=== PATIENT | male | born 1950 | race Caucasian/White ===

== ENCOUNTER 2018-06-11 08:25 | Inpatient (IN) ==
[2018-06-11] MEDS: Sod Chloride 0.9% Inj 1,000 ML IV.CONT SCH ×2 (08:28→23:26)
[2018-06-11 08:43] LABS: Baso % (Auto) 0.4 % (0.0-2.0); Eos # (Auto) 0.1 th/mm3 (0.0-0.4); Eos % (Auto) 0.7 % (0.0-4.0); Hematocrit 46.1 % (39.0-51.0); Hemoglobin 15.5 gm/dL (13.0-17.0); Lymph # (Auto) 1.9 th/mm3 (1.0-4.8); Lymph % (Auto) 16.8 % (9.0-44.0); Mean Corpuscular HGB Conc 33.6 % (32.0-36.0); Mean Corpuscular Hemoglobin 31.3 pg (27.0-34.0); Mean Corpuscular Volume 93.2 fL (80.0-100.0); Mean Platelet Volume 8.3 fL (7.0-11.0); Mono # (Auto) 0.9 th/mm3 (0.0-0.9); Neut # (Auto) 8.3 th/mm3 (1.8-7.7); Neut % (Auto) 74.1 % (16.0-70.0); Platelet Count 220 th/mm3 (150-450); Red Blood Count 4.95 mil/mm3 (4.50-5.90); Red Cell Distribution Width 13.4 % (11.6-17.2); White Blood Count 11.2 th/mm3 (4.0-11.0)
[2018-06-11 08:52] LABS: Activated Partial Thrombo Time 33.5 sec (23.4-31.7); Prothrombin Time 9.8 sec (9.8-11.6)
--- NOTE | 2018-06-11 08:55 | CT ---
EXAM DATE: 06/11/2018 8:42 AM EST AGE/SEX: 68 years / Male INDICATIONS: Stroke alert, slurred speech and right sided weakness. CLINICAL DATA: This is the patient's initial encounter. Patient reports that signs and symptoms have been present for 1 day and indicates a pain score of Nonresponsive. MEDICAL/SURGICAL HISTORY: Non-responsive. Non-responsive. RADIATION DOSE: 56.35 CTDI (mGy) COMPARISON: [facility] [place] CEREBRAL [place]F W CONTRAST W 3D, 06/11/2018. . TECHNIQUE: CT of the head without contrast. Using automated exposure control and adjustment of the mA and/or kV according to patient size, radiation dose was kept as low as reasonably achievable to ob tain optimal diagnostic quality images. DICOM format image data is available electronically for revi ew and comparison. FINDINGS: Cerebrum: Evolving subacute infarct in the left sylvian region extending into the thalamus involving anterior limb and genu of internal capsule. There is no hemorrhage. Right hemisphere is unremarkable there are no extra-axial fluid collections appreciated Posterior fossa is normal. CONCLUSION: 1. Subacute infarct involving a large portion of the left anterior sylvian region extending into the head of the caudate and basal ganglia involving both limbs of internal capsule without hemorrhage. 2. Perfusion and CTA pending Report was called by Dr. Ring at 8 50am Electronically signed by: Ignacio Ring MD Board Certified Radiologist 06/11/2018 8:53 AM EST
[2018-06-11 09:02] LABS: Creatine Kinase 440 U/L (39-308)
--- NOTE | 2018-06-11 09:08 | CT ---
EXAM DATE: 06/11/2018 9:00 AM EST AGE/SEX: 68 years / Male INDICATIONS: Stroke alert, slurred speech and right sided weakness. CLINICAL DATA: This is the patient's initial encounter. Patient reports that signs and symptoms have been present for 1 day and indicates a pain score of Nonresponsive. MEDICAL/SURGICAL HISTORY: Non-responsive. Non-responsive. RADIATION DOSE: 217.64 CTDI (mGy) [place] [facility] [place] HEAD WO CON, [place]/11/2018. . TECHNIQUE: CT of the head after intravenous administration of 50 ml Visipaque 320 (iodixanol) nonio gertrude water-soluble contrast as a single exam dose. Using automated exposure control and adjustment of the mA and/or kV according to patient size, radiation dose was kept as low as reasonably achievable to obtain optimal diagnostic quality images. DICOM format image data is available electronically for review and comparison. FINDINGS: 1. CBF (<30%) Volume (ml): 44 2. Perfusion (Tmax>6.0s) Volume (ml): 208 3. Mismatch Volume (ml) (Tmax>6.0 - CBF): 164 CONCLUSION: Physiological brain perfusion parameters with RAPID analysis as above. The decision for consideration of therapy is multi factorial and multi disciplinary relying on subjec tive and objective clinical data. This data is not construed or intended to be the sole determinant of treatment eligibility. Electronically signed by: Ignacio Ring MD Board Certified Radiologist 06/11/2018 9:07 AM EST
--- NOTE | 2018-06-11 09:13 | ED ---
HPI General Chief Complaint: Neuro Symptoms/Deficit Stated Complaint: Neuro Complaint Time Seen by Provider: 06/11/18 08:28 History of Present Illness HPI Narrative: This is a 68-year-old male with a history of hyperlipidemia, GERD , gout, who presents today with neurologic symptoms. Son who brought him and states that he called him at 7 AM on the phone this morning and heard him with garbled speech. He knew immediately he was likely having a stroke. Son states he rushed to get to his father's house. He noted that he had weakness on his right upper and lower extremity as well as slurred and garbled speech. He rushed him here by car. Son states that he thinks he was probably last seen normal between 2 and 6 AM. 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 His son is been out of town for the last 3 days therefore had not seen him over the weekend. No further history could be elicited. Related Data Home Medications Medication Instructions Recorded Confirmed allopurinol 100 mg PO DAILY 06/11/18 06/11/18 amphetamine sulfate 10 mg PO BID 06/11/18 06/11/18 cholecalciferol (vitamin D3) 5,000 unit PO DAILY 06/11/18 06/11/18 [Vitamin D3] fenofibrate 160 mg PO DAILY 06/11/18 06/11/18 minocycline 100 mg PO DAILY 06/11/18 06/11/18 omeprazole 20 mg PO DAILY 06/11/18 06/11/18 oxycodone-acetaminophen 1 tab PO Q12H PRN 06/11/18 06/11/18 rosuvastatin 20 mg PO DAILY 06/11/18 06/11/18 sulfamethoxazole-trimethoprim 1 tab PO BID 06/11/18 06/11/18 vardenafil [Levitra] 10 mg PO DAILY PRN 06/11/18 06/11/18 Allergies Allergy/AdvReac Type Severity Reaction Status Date / Time penicillin G Allergy Severe SWELLING Verified 06/11/18 08:40 Review of Systems ROS Unobtainable ROS Unobtainable: unobtainable due to mental status (Patient unable to give review of systems secondary to his expressive a aphasia.) ROS: all other systems reviewed are negative Neurologic Reports as per HPI [facility] Medical History Medical History Arthritis, rheumatoid (Acute) COPD (chronic obstructive pulmonary disease) (Acute) Hyperlipemia (Acute) Surgical History Surgical History Previous back surgery (Acute) Social History Social History Substance History: Active Abuse Smoking Status: Current every day smoker Tobacco Type: Cigarettes How Often Do You Have a Drink Containing Alcohol: Monthly or less Recent Travel in [facility] [[email or web address]] within the Last 8 Weeks: No Recent Out of Country Travel within the Last 8 Weeks: No Exam Narrative Exam Narrative: GENERAL: Well-developed well-nourished male in no acute respiratory distress. SKIN: Focused skin assessment warm/dry. HEAD: Atraumatic. Normocephalic. EYES: No scleral icterus. No injection or drainage. ENT: No nasal bleeding or discharge. Mucous membranes pink and moist. NECK: Trachea midline. No JVD. CARDIOVASCULAR: Regular rate and rhythm. No murmur appreciated. RESPIRATORY: No accessory muscle use. Clear to auscultation. Breath sounds equal bilaterally. GASTROINTESTINAL: Abdomen soft, non-tender, nondistended. Hepatic and splenic margins not palpable. MUSCULOSKELETAL: No obvious deformities. No clubbing. No cyanosis. No edema. NEUROLOGICAL: Awake and expressively aphasic. Patient has 3 out of 5 weakness in his right lower extremity and 4 out of 5 in his right upper extremity. There is a pronator drift noted. Course Initial Documented Vital Signs Pulse Rate 87 06/11/18 08:40 Pulse Oximetry 98 06/11/18 08:40 Last Documented Vital Signs Pulse Rate 87 06/11/18 08:40 Pulse Oximetry 98 06/11/18 08:40 Critical Care Time Critical Care Time: Yes Total Critical Care Time: 60 Attestation: Aggregate critical care time was 60 minutes. Time to perform other separately billable procedures was not included in the critical care time. My time did not include minutes spent treating any other patients simultaneously or on activities that did not directly contribute to the patient's treatment. The services I provided to this patient were to treat and/or prevent clinically significant deterioration that could result in: I provided critical care services requiring my management, as noted below: Chart data review, documentation time, medication orders and management, vital sign assessments/reviewing monitor data, ordering and reviewing lab tests, ordering and interpreting/reviewing x-rays and diagnostic studies, care of the patient and discussion of the patient with the admitting physicians. Quality Measure Queries Stroke Last date observed well: 06/11/18 Last time observed well: 02:00 Medical Decision Making MDM Narrative Medical decision making narrative: 68-year-old male presents today with neurologic deficits. Patient has receptive and expressive aphasia. Patient has right upper and right lower extremity weakness. There is also right-sided facial droop. CT scan shows a large left-sided subacute stroke with edema. This appears greater than 24 hours. The patient is not a candidate for IV TPA. After reviewing the CT perfusion scan, the interventional radiologist feels as though he could benefit from neuro interventional treatment. This was discussed with both the patient and his son. The patient will be taken up to the neuro interventional area. The stroke scale was 12. Medical Screen Exam Complete: Yes Emergency Medical Condition: Yes Differential Diagnosis Differential Diagnosis: Embolic stroke versus hemorrhagic stroke versus metabolic derangement Lab Data Result diagrams: 06/11/18 08:30 Lab Results 06/11/18 06/11/18 06/11/18 Range/Units 08:30 08:30 08:30 WBC 11.2 H (4.0-11.0) th/mm3 RBC 4.95 (4.50-5.90) mil/mm3 Hgb 15.5 (13.0-17.0) gm/dL POC Hgb (Calc) 15.3 (13.0-17.0) g/dL Hct 46.1 (39.0-51.0) % POC Hct 45.0 (39-51.0) % MCV 93.2 (80.0-100.0) fL MCH 31.3 (27.0-34.0) pg MCHC 33.6 (32.0-36.0) % RDW 13.4 (11.6-17.2) % Plt Count 220 (150-450) th/mm3 MPV 8.3 (7.0-11.0) fL Neut % (Auto) 74.1 H (16.0-70.0) % Lymph % (Auto) 16.8 (9.0-44.0) % Crowley % (Auto) 8.0 (0.0-8.0) % Eos % (Auto) 0.7 (0.0-4.0) % Baso % (Auto) 0.4 (0.0-2.0) % Neut # (Auto) 8.3 H (1.8-7.7) th/mm3 Lymph # (Auto) 1.9 (1.0-4.8) th/mm3 Crowley # (Auto) 0.9 (0.0-0.9) th/mm3 Eos # (Auto) 0.1 (0.0-0.4) th/mm3 Baso # (Auto) 0.0 (0.0-0.2) th/mm3 WBC Differential . Differential Comment Auto diff final PT 9.8 (9.8-11.6) sec INR 1.0 Ratio APTT 33.5 H (23.4-31.7) sec Fibrinogen 439 H (227-377) mg/dL POC Sodium 143 (137-144) mmol/L POC Potassium 4.0 (3.6-5.0) mmol/L POC Chloride 110 (102-111) mmol/L POC BUN 15 (5-21) mg/dL POC Creatinine 1.1 (0.6-1.3) mg/dL POC Glucose 106 (68-110) mg/dL Total Creatine Kinase 440 H (39-308) U/L Troponin I Less than 0.02 L (0.02-0.05) ng/mL Imaging Data Radiologist's impression: Head CT 06/11/18 08:28 CONCLUSION: 1. Subacute infarct involving a large portion of the left anterior sylvian region extending into the head of the caudate and basal ganglia involving both limbs of internal capsule without hemorrhage. 2. Perfusion and CTA pending Report was called by Dr. Ring at 8 50am Discharge Plan Discharge Disposition Patient Disposition: ED Admit(ED Internal Use Only) Discharge Details Diagnosis: Acute embolic stroke, Dyslipidemia, Tobacco use disorder Physicians Team ED Provider: Vitor Lancaster Primary Care Provider: UNKNOWN, Other Providers: Charli Watson Rxs /Orders / Referrals /Forms Prescriptions: No Action minocycline 100 mg Capsule 100 mg PO DAILY RF: 0 allopurinol 100 mg Tablet 100 mg PO DAILY RF: 0 sulfamethoxazole-trimethoprim 800-160 mg Tablet 1 tab PO BID RF: 0 omeprazole 20 mg Tablet,Delayed Release (Dr/Ec) 20 mg PO DAILY RF: 0 oxycodone-acetaminophen 5-325 mg Tablet 1 tab PO Q12H PRN (Reason: Pain) RF: 0 vardenafil [Levitra] 10 mg Tablet 10 mg PO DAILY PRN (Reason: Erectile Dysfunction) RF: 0 cholecalciferol (vitamin D3) [Vitamin D3] 5,000 unit Tablet 5,000 unit PO DAILY RF: 0 amphetamine sulfate 10 mg Tablet 10 mg PO BID RF: 0 rosuvastatin 20 mg Tablet 20 mg PO DAILY RF: 0 fenofibrate 160 mg Tablet 160 mg PO DAILY RF: 0 Status ED Status: With Doctor
--- NOTE | 2018-06-11 09:13 | CT ---
EXAM DATE: 06/11/2018 9:04 AM EST AGE/SEX: 68 years / Male INDICATIONS: Stroke alert, slurred speech and right sided weakness. CLINICAL DATA: This is the patient's initial encounter. Patient reports that signs and symptoms have been present for 1 day and indicates a pain score of Nonresponsive. MEDICAL/SURGICAL HISTORY: Non-responsive. Non-responsive. RADIATION DOSE: 10.06 CTDI (mGy) ; Combined studies COMPARISON: No prior exams available for comparison. TECHNIQUE: Volumetric scanning was performed using a multi-row detector CT scanner during bolus infu florencia of 50 ml Visipaque 320 (iodixanol) nonionic water-soluble contrast as a cumulative dose for mul tiple exams. The data was post processed with a variety of visualization algorithms including full volume maximum intensity projection, multi-planar sliding thin slab reformation, curved planar reform ation, and surface rendering techniques. Using automated exposure control and adjustment of the mA a nd/or kV according to patient size, radiation dose was kept as low as reasonably achievable to obtain optimal diagnostic quality images. DICOM format image data is available electronically for review a nd comparison. FINDINGS: There is an embolic occlusion mid to distal M1 segment left middle cerebral artery. The left anterior cerebral artery is patent. Vessels on the right are patent. Basilar artery is patent. CONCLUSION: 1. Embolic occlusion on the left. CT suggests an older stroke then suggested by history. Report was called by Dr. Ring at 0905 AM. Electronically signed by: Ignacio Ring MD Board Certified Radiologist 06/11/2018 9:12 AM EST
[2018-06-11 09:17] LABS: CKMB Percent 2.5 % (0.0-4.0); Creatine Kinase MB 10.8 ng/mL (0.5-3.6)
--- NOTE | 2018-06-11 09:23 | CT ---
EXAM DATE: 06/11/2018 9:17 AM EST AGE/SEX: 68 years / Male INDICATIONS: Stroke alert, slurred speech and right sided weakness. CLINICAL DATA: This is the patient's initial encounter. Patient reports that signs and symptoms have been present for 1 day and indicates a pain score of Nonresponsive. MEDICAL/SURGICAL HISTORY: Non-responsive. Non-responsive. RADIATION DOSE: 10.06 CTDI (mGy) ; Combined studies COMPARISON: [facility], CTA STROKE ALERT HEAD W CONTRAST W 3D, 06/11/2018. . TECHNIQUE: Volumetric scanning was performed using a multirow detector CT scanner during bolus infus ion of 50 ml Visipaque 320 (iodixanol) nonionic water-soluble contrast as a cumulative dose for mult iple exams. The data was postprocessed with a variety of visualization algorithms including full-vo lume maximum intensity projection, multiplanar sliding thin-slab reformation, curved-planar reformati on, and surface-rendering techniques. Using automated exposure control and adjustment of the mA and/ or kV according to patient size, radiation dose was kept as low as reasonably achievable to obtain op timal diagnostic quality images. DICOM format image data is available electronically for review and comparison. Percent stenosis is calculated using the diameter of the stenotic region over the diameter of the nor mal distal internal carotid artery. FINDINGS: Aortic Arch: There is a three-vessel origin of the great vessels from the aorta. No evidence of ost ial narrowing Right Carotid: Ulceration present origin of the right internal carotid. Stenosis not felt to be hemo dynamically significant. 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 Vertebrals: The vertebral arteries have a symmetric diameter. No stenotic lesions are seen. CONCLUSION: 1. 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 Ring at 09 20 . Electronically signed by: Ignacio Ring MD Board Certified Radiologist 06/11/2018 9:22 AM EST
[2018-06-11 09:43] LABS: Amphetamine Screen,Urine Neg (Neg); Barbiturate Screen,Urine Neg (Neg); Cannabinoid Screen,Urine Neg (Neg); Cocaine Screen,Urine Neg (Neg)
[2018-06-11 09:47] LABS: Bacteria,Urine Rare /hpf; Bilirubin,Urine Negative (Negative); Clarity,Urine Clear (Clear); Color,Urine Amber (Yellw/Straw); Glucose,Urine (UA) Negative (Negative); Leukocyte Esterase,Urine Negative (Negative); Mucus,Urine Moderate /lpf (Occasional); Nitrite,Urine Negative (Negative); Squamous Epithelial Cell,Urine 2 /hpf (0-5)
[2018-06-11] MEDS ORDERED: fentaNYL Citrate Inj 250 MCG/5 ML Ampul ONE (09:47)
[2018-06-11 09:49] LABS: Opiate Screen,Urine Neg (Neg)
--- NOTE | 2018-06-11 10:18 | MB ---
cc: Charli Watson MD, PhD DATE: 06/11/2018 REASON FOR CONSULTATION: Stroke alert. HISTORY OF PRESENT ILLNESS: This is a 68-year-old patient who presented to the ER with right-sided weakness and aphasia. His son brought him to the emergency room. He states he called his father at 7 a.m. in the morning. His speech was garbled, and he was concerned about a stroke, so brought him to the ER. He also noted weakness in the right arm and right leg. His son states that he thinks he was probably last seen normal between 2 and 6 a.m. However, his son has been out of town for the past 3 days and has not seen his father over the weekend. The patient is not able to give history because of his aphasia. NEUROLOGICAL EXAMINATION: The patient is alert. He has a global aphasia. He cannot follow commands well except for simple commands. He has no spontaneous speech output. Cannot repeat simple phrases. Cranial nerves: The pupils are equal and reactive. The extraocular movements are intact. He does have a right facial weakness. On motor exam, he is weak in the right arm, roughly 3/5. Right leg is about 4/5 in strength. He has normal strength in the left arm and left leg. Reflexes are symmetric. He has got a Babinski on the right. IMAGING DATA: A CT scan of the brain shows a subacute infarction involving a large portion of the left anterior sylvian region extending into the head of the caudate and basal ganglia involving both limbs of the internal capsule with no evidence of any hemorrhage. CTA shows an embolic occlusion of the mid to distal M1 segment of the left MCA. Left anterior cerebral artery is patent. CT perfusion shows cerebral blood flow of 44. Perfusion volume was 208 mL, mismatch volume 164 mL. LABORATORY DATA: White count 11,200, hemoglobin 15.5, hematocrit 46%, platelet count 220,000. PT 9.8, INR 1.0, APTT 33.5. Sodium is 143, potassium is 4.0, chloride 110, BUN is 15, creatinine 1.1, glucose 106. CPK 440. 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 The patient is not a candidate for IV TPA as he is out of the window time frame. We will discuss further with radiology department regarding the possibility for intervention in this case. Some of the stroke does appear to be older whereas the perfusion studies suggest that there is also a significant ischemic penumbra which is potentially salvageable by endovascular therapy. Charli Watson MD, PhD ARMANI/brittny , 09:32 AM , 09:39 AM
[2018-06-11] MEDS ORDERED: Bisacodyl 10 MG Supp RECTAL PRN (10:22)
[2018-06-11] MEDS ORDERED: Potassium Chlor 20 mEq Premix 20 MEQ/100 ML PIGGYBACK IV.SIG PRN ×2 (10:22)
[2018-06-11] MEDS ORDERED: Magnesium Sulfate Inj 4 GM in Sodium Chlor 0.9% Inj 92 ML IV.SIG PRN (10:22)
[2018-06-11] MEDS ORDERED: Potassium Phosphate Inj 30 MMOL in Sodium Chlor 0.9% Inj 250 ML IV.SIG PRN (10:22)
[2018-06-11] MEDS ORDERED: Potassium Chlor 40 mEq Premix 40 MEQ/100 ML PIGGYBACK IV.SIG PRN ×2 (10:22)
[2018-06-11] MEDS ORDERED: hydrALAZINE HCl Inj 20 MG/ML Vial IV.PUSH PRN (10:22)
[2018-06-11] MEDS ORDERED: Magnesium Oxide 400 MG Tablet PO PRN (10:22)
[2018-06-11] MEDS ORDERED: Sodium Phosphate Inj 30 MMOL in Sodium Chlor 0.9% Inj 250 ML IV.SIG PRN (10:22)
[2018-06-11] MEDS ORDERED: Potassium Chloride Liq 20 MEQ/15 ML UDC PO PRN ×2 (10:22)
[2018-06-11] MEDS ORDERED: Potassium Phosphate 500 MG Soluble Tablet PO PRN ×2 (10:22)
[2018-06-11] MEDS ORDERED: Acetaminophen 325 MG Tablet PO PRN (10:22)
[2018-06-11] MEDS ORDERED: Labetalol HCl Inj 100 MG/20 ML Vial IV.PUSH PRN (10:22)
[2018-06-11] MEDS ORDERED: Dextrose 50% in Water 50 ML Vial IV.PUSH PRN (10:22)
[2018-06-11] MEDS ORDERED: Magnesium Sulfate Inj 2 GM in Sodium Chlor 0.9% Inj 96 ML IV.SIG PRN (10:22)
--- NOTE | 2018-06-11 10:27 | P.HPCC ---
History of Present Illness Service: Critical care medicine Primary Care Physician: UNKNOWN Chief Complaint: altered mental status History of Present Illness: This is a 68-year-old male with a history of hyperlipidemia, GERD who presented to the emergency department this morning with new onset of altered mentation. The patient is unable to produce pain history and is densely aphasic and so the history is obtained from the medical record and from emergency room physician. Per records, the patient's son was notified at 7 AM when his father called him on the phone but had garbled speech. Although the son thinks that his true last seen normal time was between 2 and 6 AM based on circumstantial evidence he found in the house, the patient's true last seen normal time was greater than 3 days ago when he was seen by his son intact. In the emergency department emergent noncontrasted head CT was negative for acute bleed. CTA head neck demonstrated occluded left internal carotid artery as well as occluded left M1 branch MCA. CT perfusion demonstrated a large discrepancy between infarct and restricted diffusion suggesting that there was a large area of brain that was at risk for further infarction, and based on these imaging studies decision was made to take him to emergent endovascular clot retrieval. However, despite attempts, interventional radiology was unable to get past chronic occluded left ICA, and the procedure was aborted. I saw the patient both in interventional radiology and again in the intensive care unit. He is densely aphasic. Review of systems is unobtainable. He is moving all extremities although not following commands. He does appear to be weaker on the right side than the left side. Inpatient Certification: I certify that the inpatient services were ordered in accordance with Medicare regulations governing the order. This includes certification that hospital inpatient services are reasonable and necessary and in the case of services not specified as inpatient-only under 42 CFR 419.22(n), that they are appropriately provided as inpatient services in accordance to with the 2-midnight benchmark under 43 CFR 412.3(e) Estimated Total Length of Stay (Days): 7 Plans for Post Hospital Care: Not yet determined Review of Systems unobtainable due to mental status PMFSH - History History Provided By: Family Member, Medical Record - Medical History Medical History: Medical History (Last Reviewed 06/11/18 @ 16:08 by Heath Arboleda MD) Arthritis, rheumatoid COPD (chronic obstructive pulmonary disease) Hyperlipemia - Surgical History Surgical History: Surgical History (Last Reviewed 06/11/18 @ 16:08 by Haeth Arboleda MD) Previous back surgery - Family History Family History: Family History (Last Updated 06/11/18 @ 16:08 by Heath Arboleda MD) Other Family history non-contributory - Social History I have reviewed the patient's Social History: Yes - Tobacco History Tobacco Use In Past 30 Days: Yes Smoking Status: Current every day smoker Tobacco Type: Cigarettes - Alcohol History How Often Do You Have a Drink Containing Alcohol: Monthly or less - Substance Use History Substance History: Active Abuse - Substance Use Type Marijuana Status: Active Route Used: Inhalation - Travel History Recent Travel in the [place] Within the Last 8 Weeks: No Recent Travel Out of the Country Within the Last 8 Weeks: No - Immunization History Tetanus Immunization: >5 Years Medications and Allergies Active Medications: Active Medications Sodium Chloride (Ns Inj) 1,000 mls @ 70 mls/hr IV.CONT .[id number] DORIS Last Admin: 06/11/18 08:28 Dose: 70 mls/hr Allergies Allergy/AdvReac Type Severity Reaction Status Date / Time penicillin G Allergy Severe SWELLING Verified 06/11/18 08:40 Home Medications Medication Instructions Recorded Confirmed Type allopurinol 100 mg PO DAILY 06/11/18 06/11/18 History amphetamine sulfate 10 mg PO BID 06/11/18 06/11/18 History cholecalciferol (vitamin D3) 5,000 unit PO DAILY 06/11/18 06/11/18 History [Vitamin D3] fenofibrate 160 mg PO DAILY 06/11/18 06/11/18 History minocycline 100 mg PO DAILY 06/11/18 06/11/18 History omeprazole 20 mg PO DAILY 06/11/18 06/11/18 History oxycodone-acetaminophen 1 tab PO Q12H PRN 06/11/18 06/11/18 History rosuvastatin 20 mg PO DAILY 06/11/18 06/11/18 History sulfamethoxazole-trimethoprim 1 tab PO BID 06/11/18 06/11/18 History vardenafil [Levitra] 10 mg PO DAILY PRN 06/11/18 06/11/18 History Results - Labs CBC & Chem 7: 06/11/18 08:30 Labs: Short CBC 06/11/18 Range/Units 08:30 WBC 11.2 H (4.0-11.0) th/mm3 Hgb 15.5 (13.0-17.0) gm/dL Hct 46.1 (39.0-51.0) % Plt Count 220 (150-450) th/mm3 Cardiac Enzymes 06/11/18 Range/Units 08:30 Total Creatine Kinase 440 H (39-308) U/L CK-MB (CK-2) 10.8 H (0.5-3.6) ng/mL Troponin I Less than 0.02 L (0.02-0.05) ng/mL Urine 06/11/18 Range/Units 09:18 Urine Color Lisa (Yellw/Straw) Urine Clarity Clear (Clear) Urine pH 5.0 (5.0-8.5) Ur Specific Citra Greater than 1.060 H (1.002-1.035) Urine Protein Negative (Neg-Trace) mg/dL Urine Glucose (UA) Negative (Negative) mg/dL - Imaging Impressions Head CT 06/11/18 08:28 CONCLUSION: 1. Subacute infarct involving a large portion of the left anterior sylvian region extending into the head of the caudate and basal ganglia involving both limbs of internal capsule without hemorrhage. 2. Perfusion and CTA pending Report was called by Dr. Ring at 8 50am Head CTA 06/11/18 08:28 CONCLUSION: 1. Embolic occlusion on the left. CT suggests an older stroke then suggested by history. Report was called by Dr. Ring at 0905 AM. Neck CTA 06/11/18 08:28 CONCLUSION: 1. 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 Ring at [address] CAD 06/11/18 08:29 CONCLUSION: Physiological brain perfusion parameters with RAPID analysis as above. The decision for consideration of therapy is multi factorial and multi disciplinary relying on subjective and objective clinical data. This data is not construed or intended to be the sole determinant of treatment eligibility. Exam Vital signs: Vital Signs 06/11/18 08:40 06/11/18 09:14 Pulse Rate 87 Pulse Oximetry 98 100 Intake & Output 06/10/18 06/11/18 06/11/18 18:59 06:59 18:59 Weight 74.6 kg Narrative: GENERAL: Middle-age male, lying in bed, in distress due to his neuro deficits HEENT: Normocephalic. Atraumatic. Pupils are 3 mm, equal, round, reactive, conjugate. Mucous membranes are moist NECK: Trachea is midline. There is no JVD. CHEST: Equal chest rise. Room air. CARDIOVASCULAR: Normal rate, regular rhythm. Sinus by telemetry. ABDOMEN: Soft, nontender, nondistended. No guarding. MUSCULOSKELETAL: Pulses 2+. No peripheral edema. NEUROLOGICAL: RASS 0. The Patient appears to be awake and alert. Patient has a dense receptive and expressive aphasia. He does not mimic commands. He does not follow any commands. He does move all 4 extremities spontaneously. It appears that he is weaker on the right than the left, although with his inability to follow commands, it is difficult to assess the severity of his weakness. I would estimate that his muscular skeletal strength is 4/5 in the right upper and lower extremities and 5/5 in the left. Unable to determine his sensation. Gait not assessed. Caprini VTE Risk Assessment Caprini VTE Risk Assessment: Moderate/High Risk (score >= 2) VTE Pharmacological Exception Reason: High risk for bleeding Caprini Risk Assessment Model: Point Value = 1 Point Value = 2 Point Value = 3 Point Value = 5 Age 41-60 Minor surgery BMI > 25 kg/m2 Swollen legs Varicose veins or History of unexplained or recurrent spontaneous Oral contraceptives or hormone replacement Sepsis (< 1 month) Serious lung disease, including pneumonia (< 1 month) Abnormal pulmonary function Acute myocardial infarction Congestive heart failure (< 1 month) History of inflammatory bowel disease Medical patient at bed rest Age 61-74 Arthroscopic surgery Major open surgery (> 45 min) Laparoscopic surgery (> 45 min) Malignancy Confined to bed (> 72 hours) Immobilizing plaster cast Central venous access Age >= 75 History of VTE Family history of VTE Factor V Leiden Prothrombin [id number] Lupus anticoagulant Anticardiolipin antibodies Elevated serum homocysteine Heparin-induced thrombocytopenia Other congenital or acquired thrombophilia Stroke (< 1 month) Elective arthroplasty Hip, pelvis, or leg fracture Acute spinal cord injury (< 1 month) Prophylaxis Regimen: Total Risk Factor Score Risk Level Prophylaxis Regimen 0-1 Low Early ambulation 2 Moderate Order ONE of the following: *Sequential Compression Device (SCD) *Heparin 5000 units SQ BID 3-4 Higher Order ONE of the following medications: *Heparin 5000 units SQ TID *Enoxaparin/Lovenox 40 mg SQ daily (WT < 150 kg, CrCl > 30 mL/min) *Enoxaparin/Lovenox 30 mg SQ daily (WT < 150 kg, CrCl > 10-29 mL/min) *Enoxaparin/Lovenox 30 mg SQ BID (WT < 150 kg, CrCl > 30 mL/min) AND/OR *Sequential Compression Device (SCD) 5 or more Highest Order ONE of the following medications: *Heparin 5000 units SQ TID (Preferred with Epidurals) *Enoxaparin/Lovenox 40 mg SQ daily (WT < 150 kg, CrCl > 30 mL/min) *Enoxaparin/Lovenox 30 mg SQ daily (WT < 150 kg, CrCl > 10-29 mL/min) *Enoxaparin/Lovenox 30 mg SQ BID (WT < 150 kg, CrCl > 30 mL/min) AND *Sequential Compression Device (SCD) Assessment and Plan - Assessment and Plan Plan: Assessment: This is a 68-year-old male with acute left M1 MCA CVA and left ICA occlusion. Admit to ICU. Given the suspected large volume infarct, would be very high risk for hemorrhagic conversion. Will allow permissive hypertension, but would target his blood pressure under 180 to mitigate risks of hemorrhagic conversion. He is critically ill in intensive care unit due to his life- threatening stroke. I have asked neurosurgery to consult in case he develops malignant cerebral edema as he would be a decompressive craniectomy candidate if the family wanted such aggressive measures. However, ultimately, if he goes on to develop significant cerebral edema or deficits, his overall prognosis would not be great, and I have cautioned the family that his long-term chance of independent functional status is likely very low. 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 Will continue to discuss aspirin and DVT prophylaxis with neurology on an ongoing basis to decide when the risk/benefit ratio has improved. Critically ill. This patient remains critically ill with one or more organ systems which are or may become a threat to life. I have spent in excess of 58 minutes discontinuously in the care and management of this patient. This time is exclusive of procedures, and includes, but is not limited to, evaluation of the patient, review of the medical record, discussions with family, consultants, nursing staff, or respiratory therapy, and documentation in the medical record.
--- NOTE | 2018-06-11 10:29 | P.RAD ---
Post Procedure Progress Note - Pre Procedure Diagnosis (1) Acute embolic stroke - Post Procedure Diagnosis (1) Acute embolic stroke - Procedure Information Procedure Date: 06/11/18 Supervising Radiologist: Juan C Ring MD Estimated blood loss (mL): 2 Anesthesia: Local, Conscious Sedation - Plan of Activity Patient to Unit: Critical Care Patient Condition: Poor Additional Comments: Angio completed. Complete densely calcified occlusion of the left internal carotid. Unable to pass a wire through this. Pt. is not a candidate for embolectomy. Full report to follow See PACS Report for procedural detail/treatment.
[2018-06-11] MEDS: Insulin NovoLIN Regular Correctional Sugar Inj SQ SCH ×3 (11:34→23:27)
[2018-06-11] MEDS ORDERED: Insulin NovoLIN Regular Correctional Sugar Inj SQ SCH (12:00)
[2018-06-11 12:04] LABS: Chol/HDL Ratio 3.71 Ratio; HDL Cholesterol 39.8 mg/dL (40.0-60.0)
--- NOTE | 2018-06-11 12:22 | MB ---
cc: Jay Collins MD DATE: 06/11/2018 TIME: 11 a.m. Report of an initial comprehensive inpatient intensive care unit neurosurgical consultation. The patient was interviewed and examined. The documentation, laboratory evaluation and imaging were reviewed. CHIEF COMPLAINT: Stroke. HISTORY OF PRESENT ILLNESS: This is a 68-year-old apparently right-handed white male who was found by his son this morning to be a dysphasic with right hemiparesis. He was brought to the emergency department here at [facility] and evaluated. Workup disclosed a left middle cerebral artery stroke or infarct with an occlusion of the cervical internal carotid artery at the bifurcation and an embolic occlusion of the M1 portion of the left middle cerebral artery. CTA and perfusion suggested an ischemic penumbra and an attempt was made to endovascularly revascularize unsuccessfully. In any case, a neurosurgical consultation has been requested. PAST MEDICAL HISTORY: Remarkable for a history of rheumatoid arthritis, COPD and hyperlipidemia. He obviously also suffers with gout as well as erectile dysfunction. PAST SURGICAL HISTORY: Remarkable for previous back surgery. MEDICATIONS: Include: 1. Allopurinol. 2. Amphetamine sulfate. 3. Cholecalciferol. 4. Fenofibrate. 5. Minocycline. 6. Omeprazole. 7. Oxycodone/acetaminophen. 8. Rosuvastatin. 9. Bactrim. 10. Levitra. ALLERGIES: APPARENTLY TO PENICILLIN. SOCIAL HISTORY: Unobtainable due to the patient's clinical condition, but apparently obtained from the son and the chart, the patient has a history of cigarette smoking. FAMILY HISTORY: Unobtainable due to the patient's clinical condition. REVIEW OF SYSTEMS: Unobtainable due to the patient's clinical condition. NEUROLOGIC EXAMINATION: Vital signs find his temperature to be 98. His pulse or heart rate is 69. His blood pressure is 141/64. His respiratory rate is 24. His SpO2 is 100% on room air. Mental status testing finds the patient to be awake and alert. You cannot determine if the patient is oriented due to his speech deficit which includes a global dysphasia with almost a complete expressive aphasia and a receptive dysphagia. Cranial nerve testing finds his pupils to be equally round and reactive to light. Extraocular movements are full. Visual winters appear to be full to confrontation. There is no nystagmus noted. Funduscopic examination cannot be performed due to small pupils. Otherwise, cranial nerve testing 2-12 is grossly intact. I cannot tell if the patient has a facial paresis. Motor examination reveals 4+/5+ weakness of the right upper and right lower extremity. Sensory examination is intact to noxious stimuli. In all 4 extremities, he withdraws appropriately. Deep tendon reflexes are 2+ on the left and 3 to 4+ on the right. There are no pathological reflexes noted. Cerebellar, gait, Romberg and tandem cannot be tested. His head is normocephalic. External auditory canals are clear. There is no merchant sign or raccoon eyes. No sign of mastoid tenderness. No sign of CSF otorrhea or rhinorrhea. There is no sign of head injury. Cervical spine evaluation reveals mild limited range of motion without pain to palpation or meningismus. Pulses are 4+ present and symmetrical throughout. IMPRESSION: My impression is the patient suffered what appears to be an acute left middle cerebral artery stroke. RECOMMENDATIONS AND PLAN: At this point, certainly a conservative neurosurgical approach is warranted. He will be monitored and treated closely in the surgical intensive care unit. Depending on the results of the workup as well as his clinical course, we will determine the appropriate further diagnostic and therapeutic approach. If the patient deteriorates neurologically, one might consider pursuing a decompressive hemicraniectomy. However, this was discussed with the patient's son at the bedside and currently both him and his family are undecided due to the patient's previously expressed wishes. In any case, neurosurgical followup. Thank you for allowing me to participate in the care of this patient. MD SONJA Cervantes/nini , 11:46 AM , 11:58 AM
[2018-06-11] MEDS ORDERED: Sodium Chloride 0.9% 2 ML Flush PRN IV.FLUSH (13:55)
[2018-06-11] MEDS: Aspirin 300 MG Supp RECTAL SCH (14:11)
[2018-06-11] MEDS ORDERED: Gadobutrol PF 7.5 MMOL/7.5 ML Vial (for RAD) IV.SIG ONE (14:41)
--- NOTE | 2018-06-11 14:58 | MR ---
EXAM DATE: 06/11/2018 2:43 PM EST AGE/SEX: 68 years / Male INDICATIONS: Aphasia. Right sided weakness. CLINICAL DATA: This is the patient's subsequent encounter. Patient reports that signs and symptoms h ave been present for 1 day and indicates a pain score of 3/10. MEDICAL/SURGICAL HISTORY: Hypertension. Hypercholesterolemia. Fusion, lumbar. COMPARISON: No prior exams available for comparison. TECHNIQUE: Multiplanar, multisequence examination of the brain was performed without and with 7.5 ml Gadavist (gadobutrol) contrast as a single exam dose. FINDINGS: Cerebrum: There is a large area of restricted diffusion in the left anterior sylvian region extendin g to the head of the caudate involving the anterior limb of the internal capsule. There is no associa manuel hemorrhage with this. The left internal carotid is occluded at the carotid bifurcation with some pleural cavernous sinus retrograde. The right hemisphere is unremarkable Ventricular size is appropriate. On postcontrast images there is minimal cortical vein enhancement. Extracranial: The visualized portions of the orbits and paranasal sinuses are unremarkable. CONCLUSION: 1. Large area of infarction as above from known embolic disease in the distal M1 segment of the left anterior cerebral artery. There is no significant hemorrhage as yet. 2. No other ischemic changes are evident. Electronically signed by: Ignacio Ring MD Board Certified Radiologist 06/11/2018 2:56 PM EST
--- NOTE | 2018-06-11 15:01 | ECG ---
Date Performed: 06/11/2018 Time Performed: 08:30:51 PTAGE: 68 years EKG: Sinus rhythm NORMAL ECG NO PREVIOUS TRACING DOCTOR: Curly Manjarrez Interpretating Date/Time 06/11/2018 14:59:47
[2018-06-11 17:31] LABS: Hemoglobin A1c 5.7 % (4.3-6.0)
--- NOTE | 2018-06-11 17:58 | ECHRPT ---
Indication: CVA/TIA CONCLUSIONS The left ventricular systolic function is normal with an estimated ejection fraction in the range of 55-60%. Mild concentric left ventricular hypertrophy. [id number] mitral valve regurgitation. There is trace tricuspid valve regurgitation. BP: / HR: Rhythm: Sinus MEASUREMENTS (Male / Female) Normal Values Technical Quality:Fair 2D ECHO LVOT Diameter 1.8 cm Aortic Root Diameter 2.6 cm M-MODE AV Cusp Separation MM 1.6 cm DOPPLER AV Peak Velocity 167.0 cm/s AV Peak Gradient 11.2 mmHg AV Mean Gradient 5.0 mmHg AV Velocity Time Integral 23.7 cm LVOT Peak Velocity 100.0 cm/s LVOT Peak Gradient 4.0 mmHg LVOT Velocity Time Integral 17.5 cm AV Area Cont Eq vti 1.9 cm AV Area Cont Eq pk 1.5 cm Mitral E Point Velocity 80.9 cm/s Mitral A Point Velocity 72.6 cm/s Mitral E to A Ratio 1.1 LV E' Lateral Velocity 11.0 cm/s Mitral E to LV E' Lateral Ratio 7.4 LV E' Septal Velocity 8.2 cm/s Mitral E to LV E' Septal Ratio 9.9 TR Peak Velocity 238.0 cm/s TR Peak Gradient 22.7 mmHg Right Atrial Pressure 10.0 mmHg Pulmonary Artery Systolic Pressu 32.7 mmHg Right Ventricular Systolic Press 32.7 mmHg PV Peak Velocity 59.4 cm/s PV Peak Gradient 1.4 mmHg FINDINGS LEFT VENTRICLE Normal left ventricular size. Mild concentric left ventricular hypertrophy. The left ventricular systolic function is normal with an estimated ejection fraction in the range of 55-60%. RIGHT VENTRICLE Grossly normal LEFT ATRIUM The left atrial size is normal. RIGHT ATRIUM The right atrial size is normal. ATRIAL SEPTUM No atrial level shunt is demonstrated by color flow Doppler interrogation. AORTA The aortic root and proximal ascending aorta are normal in size on limited imaging. MITRAL VALVE Structurally normal mitral valve. No mitral valve stenosis. [id number] mitral valve regurgitation. AORTIC VALVE Aortic valve sclerosis is present. No aortic valve regurgitation. No aortic valve stenosis. TRICUSPID VALVE Grossly normal There is trace tricuspid valve regurgitation. PULMONARY VALVE The pulmonary valve is not well visualized. VESSELS The inferior vena cava was not well visualized. PERICARDIUM No pericardial effusion. A prominent epicardial fat pad is present. Bob Obregon DO (Electronically Signed) Final Date:11 June 2018 17:57
[2018-06-11] MEDS: Sodium Chloride 0.9% 2 ML Flush BID IV.FLUSH SCH (20:36)
[2018-06-11] MEDS: Senna/Docusate Sodium 8.6/50 MG Tablet PO SCH (20:36)
[2018-06-11] MEDS: Polyethylene Glycol 3350 17 GM Packet PO SCH (20:36)
[2018-06-12] MEDS ORDERED: Chlorhexidine Gluconate 2% 1 Pack (2 Cloths) TOPICAL PRN (04:00)
--- NOTE | 2018-06-12 04:31 | CT ---
EXAM DATE: 06/12/2018 4:25 AM EST AGE/SEX: 68 years / Male INDICATIONS: Follow stroke. CLINICAL DATA: This is the patient's subsequent encounter. Patient reports that signs and symptoms h ave been present for 1 day and indicates a pain score of 0/10. MEDICAL/SURGICAL HISTORY: Chronic obstructive pulmonary disease. None. RADIATION DOSE: 66.34 CTDI (mGy) COMPARISON: [facility] [place], MR HEAD W & W/O CONTRAST, 06/11/2018. . TECHNIQUE: CT of the head without contrast. Using automated exposure control and adjustment of the mA and/or kV according to patient size, radiation dose was kept as low as reasonably achievable to ob tain optimal diagnostic quality images. DICOM format image data is available electronically for revi ew and comparison. FINDINGS: Cerebrum: The ventricles are normal for age. Developing area of encephalomalacia in the anterior lef t parietal lobe extending to the basal ganglia corresponding to the known area of left MCA infarction . No findings of hemorrhage. No midline shift. No extraaxial fluid collections are seen. Posterior Fossa: The cerebellum and brainstem are intact. The 4th ventricle is midline. The cerebe llopontine angle is unremarkable. Extracranial: The visualized portion of the orbits is intact. Skull: The calvaria is intact. No evidence of skull fracture. CONCLUSION: 1. Expected evolution of the left MCA infarct involving the anterior left parietal lobe. 2. No parenchymal hemorrhage. No midline shift. No acute intracranial process. . . Electronically signed by: Walter Ortiz MD Board Certified Radiologist 06/12/2018 4:29 AM EST
[2018-06-12 05:16] LABS: Baso % (Auto) 0.4 % (0.0-2.0); Eos # (Auto) 0.1 th/mm3 (0.0-0.4); Eos % (Auto) 1.2 % (0.0-4.0); Hematocrit 41.2 % (39.0-51.0); Hemoglobin 14.5 gm/dL (13.0-17.0); Lymph # (Auto) 2.1 th/mm3 (1.0-4.8); Lymph % (Auto) 23.7 % (9.0-44.0); Mean Corpuscular HGB Conc 35.1 % (32.0-36.0); Mean Corpuscular Hemoglobin 32.5 pg (27.0-34.0); Mean Corpuscular Volume 92.7 fL (80.0-100.0); Mean Platelet Volume 8.6 fL (7.0-11.0); Mono # (Auto) 0.7 th/mm3 (0.0-0.9); Mono % (Auto) 7.8 % (0.0-8.0); Neut % (Auto) 66.9 % (16.0-70.0); Platelet Count 191 th/mm3 (150-450); Red Blood Count 4.45 mil/mm3 (4.50-5.90); Red Cell Distribution Width 13.5 % (11.6-17.2)
[2018-06-12] MEDS: Insulin NovoLIN Regular Correctional Sugar Inj SQ SCH ×4 (05:20→23:36)
[2018-06-12] MEDS: Chlorhexidine Gluconate 2% 1 Pack (2 Cloths) TOPICAL SCH (05:20)
[2018-06-12 05:43] LABS: Calcium 7.9 mg/dL (8.5-10.1); Carbon Dioxide 22.7 meq/L (21.0-32.0); Magnesium 2.1 mg/dL (1.5-2.5); Phosphorus 2.3 mg/dL (2.5-4.9); Potassium 3.6 meq/L (3.5-5.1)
[2018-06-12] MEDS: Senna/Docusate Sodium 8.6/50 MG Tablet PO SCH ×2 (08:37→20:36)
[2018-06-12] MEDS: Aspirin 300 MG Supp RECTAL SCH (08:37)
[2018-06-12] MEDS: Sodium Chloride 0.9% 2 ML Flush BID IV.FLUSH SCH ×2 (08:37→20:36)
[2018-06-12] MEDS: Polyethylene Glycol 3350 17 GM Packet PO SCH ×2 (08:37→20:36)
--- NOTE | 2018-06-12 09:20 | IR ---
EXAM DATE: 06/11/2018 10:59 AM EST AGE/SEX: 68 years / Male INDICATIONS: Patient presents today with neurological symptoms. Stroke alert was called. CLINICAL DATA: This is the patient's initial encounter. Patient reports that signs and symptoms have been present for 1 day and indicates a pain score of 0/10. MEDICAL/SURGICAL HISTORY: Gastroesophageal reflux disease. gout, hyperlipidemia. smoker, None. COMPARISON: No prior exams available for comparison. FLUORO TIME (min): 19 IMAGE SERIES: 5 RADIATION DOSE: 376.6 mGy CAK ACCESS SITE: Right femoral artery SEDATION TIME (min): 30 CONTRAST (cc): 25 cc MEDICATION(S): 2 mg midazolam (Versed) IV 100 mcg fentanyl (Sublimaze) IV DEVICE(S): Right common femoral artery Angio-Seal 6 FR TIMELINE: Interventional Team Called: 909 Interventional Team Arrived: 909 Interventional Team Ready 938 Patient Arrival: 939 Groin Puncture: [phone] Recanalization: PROCEDURE : 1. Ultrasound-guided puncture of the access site. 2. Angiography of the access site prior to closure device. 3. Conscious sedation with continuous EKG and Oximetry monitoring. 4. Percutaneous closure of the access site. 5. Angiography of the left internal carotid circulation Clinical history: The patient is a 68-year-old who presented to [facility] as a stroke alert. CT exa mination demonstrated infarct of varying age involving the left hemisphere. Rapid exam was performed which demonstrated a significant ischemic penumbra. CT angiography demonstrated embolic occlusion of the left middle cerebral at the M1 segment and possible occlusion of the left internal carotid artery . The risks, benefits and alternatives to the procedure were explained to the patient's son. Verbal and written consent was obtained. The site was prepped in sterile fashion. Full sterile technique was us ed, including cap, mask, sterile gloves and gown and a large sterile sheet. Hand hygiene and 2% chlor hexidine and/or betadine/alcohol prep was utilized per protocol for cutaneous antisepsis. The skin an d subcutaneous tissues were infiltrated with local anesthetic solution. Sterile gel and sterile prob e cover were utilized for ultrasound guidance. With ultrasound and fluoroscopic guidance the selected artery was punctured and a vascular sheath was placed. Angiography of the common femoral artery was performed for evaluation prior to percutaneous closure device placement. An 0.035 angle glide wire and CARMELO 2 catheter were advanced into the aortic arch. The left common carot id artery was easily selected. Selective angiography demonstrated densely calcified occlusion of the left internal carotid at its origin. The CARMELO 2 catheter and 0.035 angle Glidewire were advanced up to the base of the occlusion. The occluded segment was gently probed with a 0.035 angle Glidewire. This could not be advanced through the occluded segment of left internal carotid. The CARMELO 2 catheter was ex changed for a 6 Lao guide catheter which was placed in the common carotid again the occluded segme nt of left internal carotid was probed with a glide wire and CARMELO 2 catheter. The Glidewire could not b e advanced into the left internal carotid suggesting chronic critical stenosis with possible acute ve rsus chronic occlusion. The procedure was terminated at this point. Hemostasis was obtained with the prescribed medicated closure device. Conscious sedation was performe d with the prescribed dosages and duration as above. EKG and oximetry remained stable throughout the procedure. The patient was sent to post anesthesia recovery in stable condition. CONCLUSION: 1. Acute occlusion on chronic critical stenosis of the left internal carotid at its origin. The fifi ent is not a candidate for embolectomy. Electronically signed by: Juan C Ring MD Board Certified Radiologist 06/12/2018 9:19 AM EST
--- NOTE | 2018-06-12 12:02 | P.PNNS ---
Subjective Interval history: remains aphasic <Hermelinda Medina - Last Filed: 06/12/18 11:55> Physical Exam Vital signs: Vital Signs 06/11/18 11:56 06/11/18 12:00 06/11/18 12:15 Temperature 98.6 F Pulse Rate 65 70 Respiratory Rate 16 15 Blood Pressure 128/67 130/75 Pulse Oximetry 100 100 100 06/11/18 12:30 06/11/18 12:45 06/11/18 13:00 Temperature Pulse Rate 71 66 67 Respiratory Rate 30 H 18 15 Blood Pressure 122/57 L 119/65 120/61 Pulse Oximetry 99 100 100 06/11/18 13:15 06/11/18 13:30 06/11/18 13:45 Temperature Pulse Rate 67 67 70 Respiratory Rate 16 16 18 Blood Pressure 107/59 L 111/66 120/70 Pulse Oximetry 97 96 98 06/11/18 14:00 06/11/18 14:15 06/11/18 15:00 Temperature Pulse Rate 66 68 74 Respiratory Rate 17 17 20 Blood Pressure 114/60 119/70 Pulse Oximetry 98 98 99 06/11/18 16:00 06/11/18 17:00 06/11/18 17:57 Temperature Pulse Rate 90 66 83 Respiratory Rate 19 16 20 Blood Pressure 127/87 127/65 Pulse Oximetry 98 93 L 98 06/11/18 18:00 06/11/18 19:00 06/11/18 19:40 Temperature Pulse Rate 70 76 Respiratory Rate 21 16 Blood Pressure Pulse Oximetry 96 97 97 06/11/18 19:44 06/11/18 20:00 06/11/18 21:00 Temperature 98.9 F Pulse Rate 73 68 70 Respiratory Rate 16 16 18 Blood Pressure 124/62 118/59 L 113/61 Pulse Oximetry 98 96 96 06/11/18 22:00 06/11/18 23:00 06/12/18 00:00 Temperature 99.1 F Pulse Rate 67 68 65 Respiratory Rate 17 18 16 Blood Pressure 132/63 112/63 127/71 Pulse Oximetry 97 97 96 06/12/18 01:00 06/12/18 02:00 06/12/18 03:00 Temperature Pulse Rate 66 62 59 L Respiratory Rate 22 18 17 Blood Pressure 118/58 L 122/63 117/62 Pulse Oximetry 93 L 95 92 L 06/12/18 04:00 06/12/18 05:00 06/12/18 06:00 Temperature 98.8 F Pulse Rate 75 60 65 Respiratory Rate 18 21 12 Blood Pressure 134/73 130/59 L 125/60 Pulse Oximetry 94 L 95 91 L 06/12/18 07:00 06/12/18 08:00 06/12/18 09:00 Temperature 98.1 F Pulse Rate 62 64 65 Respiratory Rate 18 26 H 18 Blood Pressure 114/65 120/67 124/67 Pulse Oximetry 94 L 94 L 97 06/12/18 10:00 06/12/18 11:00 Temperature Pulse Rate 70 62 Respiratory Rate 32 H 15 Blood Pressure 120/58 L 125/72 Pulse Oximetry 95 96 Intake & Output 06/11/18 06/12/18 06/12/18 18:59 06:59 18:59 Intake Total 500 / 500 Output Total 300 / 300 200 / 200 Balance -300 / -300 300 / 300 Weight 75.3 kg 77.1 kg Intake: IV 500 / 500 NS Inj 1,000 ML @ 70 mls/hr IV. 500 / 500 CONT .[id number] [facility] Rx#:[id number] Oral 0 / 0 Output: Urine 300 / 300 200 / 200 Other: Date of Last Bowel Movement 06/10/18 06/10/18 # Bowel Movements 0 0 Weight On Admission 75.3 kg Narrative: Awake and alert complete expressive aphasia and a receptive dysphasia pupils equal, reactive Motor examination reveals 4+/5+ weakness of the right upper and right lower extremity Sensory examination is intact to noxious stimuli. withdraws in all 4 extremities - Urinary Catheter Management Straight Cath placed during this visit: yes, but has since been removed by the nurse Reason for continuing: Not indwelling catheter Insertion date: 06/11/18 Insertion time: 09:15 Removal date: 06/11/18 Removal time: 09:16 <Hermelinda Medina - Last Filed: 06/12/18 11:55> Vital signs: Vital Signs 06/11/18 17:00 06/11/18 17:57 06/11/18 18:00 Temperature Pulse Rate 66 83 70 Respiratory Rate 16 20 21 Blood Pressure 127/87 127/65 Pulse Oximetry 93 L 98 96 06/11/18 19:00 06/11/18 19:40 06/11/18 19:44 Temperature Pulse Rate 76 73 Respiratory Rate 16 16 Blood Pressure 124/62 Pulse Oximetry 97 97 98 06/11/18 20:00 06/11/18 21:00 06/11/18 22:00 Temperature 98.9 F Pulse Rate 68 70 67 Respiratory Rate 16 18 17 Blood Pressure 118/59 L 113/61 132/63 Pulse Oximetry 96 96 97 06/11/18 23:00 06/12/18 00:00 06/12/18 01:00 Temperature 99.1 F Pulse Rate 68 65 66 Respiratory Rate 18 16 22 Blood Pressure 112/63 127/71 118/58 L Pulse Oximetry 97 96 93 L 06/12/18 02:00 06/12/18 03:00 06/12/18 04:00 Temperature 98.8 F Pulse Rate 62 59 L 75 Respiratory Rate 18 17 18 Blood Pressure 122/63 117/62 134/73 Pulse Oximetry 95 92 L 94 L 06/12/18 05:00 06/12/18 06:00 06/12/18 07:00 Temperature Pulse Rate 60 65 62 Respiratory Rate 21 12 18 Blood Pressure 130/59 L 125/60 114/65 Pulse Oximetry 95 91 L 94 L 06/12/18 08:00 06/12/18 09:00 06/12/18 10:00 Temperature 98.1 F Pulse Rate 64 65 70 Respiratory Rate 26 H 18 32 H Blood Pressure 120/67 124/67 120/58 L Pulse Oximetry 94 L 97 95 06/12/18 11:00 06/12/18 12:00 06/12/18 13:00 Temperature 98.6 F Pulse Rate 62 62 67 Respiratory Rate 15 19 27 H Blood Pressure 125/72 128/62 128/62 Pulse Oximetry 96 95 96 06/12/18 14:00 06/12/18 15:00 06/12/18 16:00 Temperature 98.0 F Pulse Rate 67 66 65 Respiratory Rate 23 21 29 H Blood Pressure 119/66 118/65 120/59 L Pulse Oximetry 94 L 93 L 96 Intake & Output 06/11/18 06/12/18 06/12/18 18:59 06:59 18:59 Intake Total 500 / 500 Output Total 300 / 300 200 / 200 Balance -300 / -300 300 / 300 Weight 75.3 kg 77.1 kg Intake: IV 500 / 500 NS Inj 1,000 ML @ 70 mls/hr IV. 500 / 500 CONT .[id number] [facility] Rx#:[id number] Oral 0 / 0 Output: Urine 300 / 300 200 / 200 Other: Date of Last Bowel Movement 06/10/18 06/10/18 # Bowel Movements 0 0 Weight On Admission 75.3 kg - Urinary Catheter Management Straight Cath placed during this visit: no <Jay Collins - Last Filed: 06/12/18 16:18> Assessment and Plan - Plan 68 y/o male with acute left middle cerebral artery stroke. RECOMMENDATIONS AND PLAN: At this point, certainly a conservative neurosurgical approach is warranted. He will be monitored and treated closely in the surgical intensive care unit. Depending on the results of the workup as well as his clinical course, we will determine the appropriate further diagnostic and therapeutic approach. If the patient deteriorates neurologically, one might consider pursuing a decompressive hemicraniectomy. However, this was discussed with the patient's son at the bedside and currently both him and his family are undecided due to the patient's previously expressed wishes. In any case, neurosurgical followup. 06/12/2018 patient neurologically stable continue with serial neuro checks stroke rehab PT, OT, ST will follow <Hermelinda Medina - Last Filed: 06/12/18 11:55> - Attending Attestation June 12, 2018 I personally interviewed and examined the patient. I reviewed the documentation , laboratory evaluation, and the imaging. I discussed case with the neurosurgery team we formulated the plan. This was discussed with the patient and his son at was at the bedside. A conservative neurosurgical approach is warranted. The patient appears to be clinically, neurologically and radiographically stable. Neurosurgery will follow. <Jay Collins - Last Filed: 06/12/18 16:18>
--- NOTE | 2018-06-12 12:31 | P.PNCC ---
Subjective Subjective Remarks/Hospital Course: This is a 68-year-old male with a history of hyperlipidemia, GERD who presented to the emergency department this morning with new onset of altered mentation. The patient is unable to produce pain history and is densely aphasic and so the history is obtained from the medical record and from emergency room physician. Per records, the patient's son was notified at 7 AM when his father called him on the phone but had garbled speech. Although the son thinks that his true last seen normal time was between 2 and 6 AM based on circumstantial evidence he found in the house, the patient's true last seen normal time was greater than 3 days ago when he was seen by his son intact. In the emergency department emergent noncontrasted head CT was negative for acute bleed. CTA head neck demonstrated occluded left internal carotid artery as well as occluded left M1 branch MCA. CT perfusion demonstrated a large discrepancy between infarct and restricted diffusion suggesting that there was a large area of brain that was at risk for further infarction, and based on these imaging studies decision was made to take him to emergent endovascular clot retrieval. However, despite attempts, interventional radiology was unable to get past chronic occluded left ICA, and the procedure was aborted. I saw the patient both in interventional radiology and again in the intensive care unit. He is densely aphasic. Review of systems is unobtainable. He is moving all extremities although not following commands. He does appear to be weaker on the right side than the left side. 06/12/18: Patient lying in bed moves all extremities weaker on right upper extremity. Remains aphasic attempts to speak a few words. CT of the head shows expected evolution of the left MCA infarct involving the anterior left parietal lobe. Vascular surgery consulted for left ICA occlusion Objective Vital Signs / I&O: Vital Signs 06/11/18 12:45 06/11/18 13:00 06/11/18 13:15 Temperature Pulse Rate 66 67 67 Respiratory Rate 18 15 16 Blood Pressure 119/65 120/61 107/59 L Pulse Oximetry 100 100 97 06/11/18 13:30 06/11/18 13:45 06/11/18 14:00 Temperature Pulse Rate 67 70 66 Respiratory Rate 16 18 17 Blood Pressure 111/66 120/70 114/60 Pulse Oximetry 96 98 98 06/11/18 14:15 06/11/18 15:00 06/11/18 16:00 Temperature Pulse Rate 68 74 90 Respiratory Rate 17 20 19 Blood Pressure 119/70 Pulse Oximetry 98 99 98 06/11/18 17:00 06/11/18 17:57 06/11/18 18:00 Temperature Pulse Rate 66 83 70 Respiratory Rate 16 20 21 Blood Pressure 127/87 127/65 Pulse Oximetry 93 L 98 96 06/11/18 19:00 06/11/18 19:40 06/11/18 19:44 Temperature Pulse Rate 76 73 Respiratory Rate 16 16 Blood Pressure 124/62 Pulse Oximetry 97 97 98 06/11/18 20:00 06/11/18 21:00 06/11/18 22:00 Temperature 98.9 F Pulse Rate 68 70 67 Respiratory Rate 16 18 17 Blood Pressure 118/59 L 113/61 132/63 Pulse Oximetry 96 96 97 06/11/18 23:00 06/12/18 00:00 06/12/18 01:00 Temperature 99.1 F Pulse Rate 68 65 66 Respiratory Rate 18 16 22 Blood Pressure 112/63 127/71 118/58 L Pulse Oximetry 97 96 93 L 06/12/18 02:00 06/12/18 03:00 06/12/18 04:00 Temperature 98.8 F Pulse Rate 62 59 L 75 Respiratory Rate 18 17 18 Blood Pressure 122/63 117/62 134/73 Pulse Oximetry 95 92 L 94 L 06/12/18 05:00 06/12/18 06:00 06/12/18 07:00 Temperature Pulse Rate 60 65 62 Respiratory Rate 21 12 18 Blood Pressure 130/59 L 125/60 114/65 Pulse Oximetry 95 91 L 94 L 06/12/18 08:00 06/12/18 09:00 06/12/18 10:00 Temperature 98.1 F Pulse Rate 64 65 70 Respiratory Rate 26 H 18 32 H Blood Pressure 120/67 124/67 120/58 L Pulse Oximetry 94 L 97 95 06/12/18 11:00 Temperature Pulse Rate 62 Respiratory Rate 15 Blood Pressure 125/72 Pulse Oximetry 96 Intake & Output 06/11/18 06/12/18 06/12/18 18:59 06:59 18:59 Intake Total 500 / 500 Output Total 300 / 300 200 / 200 Balance -300 / -300 300 / 300 Weight 75.3 kg 77.1 kg Intake: IV 500 / 500 NS Inj 1,000 ML @ 70 mls/hr IV. 500 / 500 CONT .[id number] [facility] Rx#:[id number] Oral 0 / 0 Output: Urine 300 / 300 200 / 200 Other: Date of Last Bowel Movement 06/10/18 06/10/18 # Bowel Movements 0 0 Weight On Admission 75.3 kg Result Diagrams: 06/12/18 03:57 06/12/18 03:57 Objective Remarks: GENERAL: Middle-age male, lying in bed, in distress due to his neuro deficits HEENT: Normocephalic. Atraumatic. Pupils are 3 mm, equal, round, reactive, conjugate. Mucous membranes are moist NECK: Trachea is midline. There is no JVD. CHEST: Equal chest rise. Room air. CARDIOVASCULAR: Normal rate, regular rhythm. Sinus by telemetry. ABDOMEN: Soft, nontender, nondistended. No guarding. MUSCULOSKELETAL: Pulses 2+. No peripheral edema. NEUROLOGICAL: RASS 0. The Patient is awake and alert. Patient has expressive aphasia. He does follow basic commands. He does move all 4 extremities spontaneously. Right upper extremity 3 out of 5 power. All other extremities 5 out of 5. Unable to determine his sensation. Gait not assessed. Assessment and Plan - Assessment and Plan Plan: Assessment: This is a 68-year-old male with acute left M1 MCA CVA and left ICA occlusion. Admit to ICU. Given the suspected large volume infarct, would be very high risk for hemorrhagic conversion. Will allow permissive hypertension, but would target his blood pressure under 180 to mitigate risks of hemorrhagic conversion. He is critically ill in intensive care unit due to his life- threatening stroke. I have asked neurosurgery to consult in case he develops malignant cerebral edema as he would be a decompressive craniectomy candidate if the family wanted such aggressive measures. However, ultimately, if he goes on to develop significant cerebral edema or deficits, his overall prognosis would not be great. At this point though there is no evidence of significant swelling Acute left M1 MCA CVA left ICA occlusion Acute encephalopathy Dense receptive and expressive aphasia Hypertensive Emergency Continue ICU care. Frequent neurochecks MRI brain: large area of infarct in the left anterior sylvian region extending to the head of the caudate involving the anterior limb of the internal capsule Lipids. Statin based on lipid profile, atorvastatin started A1c 5.7 2D echo, an estimated ejection fraction in the range of 55-60%. Speech therapy, Physical therapy, Occupational Therapy Stroke navigator Neurology consult Neurosurgery consult- no intervention needed at this time Vascular surgery consult regarding left ICA occlusion Permissive hypertension targeting systolic 140-180 Nicardipine infusion, labetalol, hydralazine IV as needed Advance diet per speech recommendations Aspirin rectally per neuro Level 3 At this time critical but stable. Continue ICU care, however will consult hospitalist to assume care from 06/13/2018 D/W Dr. Watson Code Status: Full Discussed Condition With: Family at the bedside
[2018-06-12] MEDS: Sod Chloride 0.9% Inj 1,000 ML IV.CONT SCH (13:15)
--- NOTE | 2018-06-12 14:10 | P.PNVS ---
Subjective Subjective/Hospital Course: Patient seen and examined Full consult dictated No surgical options available as far as the left carotid artery full occlusion is concerned Consult is greatly appreciated Thanks J Objective Vital Signs / I&O: Vital Signs 06/11/18 14:15 06/11/18 15:00 06/11/18 16:00 Temperature Pulse Rate 68 74 90 Respiratory Rate 17 20 19 Blood Pressure 119/70 Pulse Oximetry 98 99 98 06/11/18 17:00 06/11/18 17:57 06/11/18 18:00 Temperature Pulse Rate 66 83 70 Respiratory Rate 16 20 21 Blood Pressure 127/87 127/65 Pulse Oximetry 93 L 98 96 06/11/18 19:00 06/11/18 19:40 06/11/18 19:44 Temperature Pulse Rate 76 73 Respiratory Rate 16 16 Blood Pressure 124/62 Pulse Oximetry 97 97 98 06/11/18 20:00 06/11/18 21:00 06/11/18 22:00 Temperature 98.9 F Pulse Rate 68 70 67 Respiratory Rate 16 18 17 Blood Pressure 118/59 L 113/61 132/63 Pulse Oximetry 96 96 97 06/11/18 23:00 06/12/18 00:00 06/12/18 01:00 Temperature 99.1 F Pulse Rate 68 65 66 Respiratory Rate 18 16 22 Blood Pressure 112/63 127/71 118/58 L Pulse Oximetry 97 96 93 L 06/12/18 02:00 06/12/18 03:00 06/12/18 04:00 Temperature 98.8 F Pulse Rate 62 59 L 75 Respiratory Rate 18 17 18 Blood Pressure 122/63 117/62 134/73 Pulse Oximetry 95 92 L 94 L 06/12/18 05:00 06/12/18 06:00 06/12/18 07:00 Temperature Pulse Rate 60 65 62 Respiratory Rate 21 12 18 Blood Pressure 130/59 L 125/60 114/65 Pulse Oximetry 95 91 L 94 L 06/12/18 08:00 06/12/18 09:00 06/12/18 10:00 Temperature 98.1 F Pulse Rate 64 65 70 Respiratory Rate 26 H 18 32 H Blood Pressure 120/67 124/67 120/58 L Pulse Oximetry 94 L 97 95 06/12/18 11:00 06/12/18 12:00 06/12/18 13:00 Temperature 98.6 F Pulse Rate 62 62 67 Respiratory Rate 15 19 27 H Blood Pressure 125/72 128/62 128/62 Pulse Oximetry 96 95 96 Intake & Output 06/11/18 06/12/18 06/12/18 18:59 06:59 18:59 Intake Total 500 / 500 Output Total 300 / 300 200 / 200 Balance -300 / -300 300 / 300 Weight 75.3 kg 77.1 kg Intake: IV 500 / 500 NS Inj 1,000 ML @ 70 mls/hr IV. 500 / 500 CONT .[id number] [facility] Rx#:[id number] Oral 0 / 0 Output: Urine 300 / 300 200 / 200 Other: Date of Last Bowel Movement 06/10/18 06/10/18 # Bowel Movements 0 0 Weight On Admission 75.3 kg Laboratory Results - last 24 hr 06/11/18 06/11/18 06/11/18 08:30 12:10 17:43 WBC RBC Hgb Hct MCV MCH MCHC RDW Plt Count MPV Neut % (Auto) Lymph % (Auto) [place] % (Auto) Eos % (Auto) Baso % (Auto) Neut # (Auto) Lymph # (Auto) [place] # (Auto) Eos # (Auto) Baso # (Auto) WBC Differential Differential Comment Sodium Potassium Chloride Carbon Dioxide Anion Gap BUN Creatinine Estimated GFR POC Glucose 97 Random Glucose Hemoglobin A1c 5.7 Calcium Phosphorus Magnesium Nasal Screen MRSA (PCR) Not detected 06/11/18 06/12/18 06/12/18 22:38 03:57 03:57 WBC 9.0 RBC 4.45 L Hgb 14.5 Hct 41.2 MCV 92.7 MCH 32.5 MCHC 35.1 RDW 13.5 Plt Count 191 MPV 8.6 Neut % (Auto) 66.9 Lymph % (Auto) 23.7 [place] % (Auto) 7.8 Eos % (Auto) 1.2 Baso % (Auto) 0.4 Neut # (Auto) 6.0 Lymph # (Auto) 2.1 [place] # (Auto) 0.7 Eos # (Auto) 0.1 Baso # (Auto) 0.0 WBC Differential . Differential Comment Auto diff final Sodium 147 H Potassium 3.6 Chloride 116 H Carbon Dioxide 22.7 Anion Gap 8 BUN 12 Creatinine 0.90 Estimated GFR 84 L POC Glucose 88 Random Glucose 82 Hemoglobin A1c Calcium 7.9 L Phosphorus 2.3 L Magnesium 2.1 Nasal Screen MRSA (PCR) 06/12/18 06/12/18 05:13 12:12 WBC RBC Hgb Hct MCV MCH MCHC RDW Plt Count MPV Neut % (Auto) Lymph % (Auto) [place] % (Auto) Eos % (Auto) Baso % (Auto) Neut # (Auto) Lymph # (Auto) [place] # (Auto) Eos # (Auto) Baso # (Auto) WBC Differential Differential Comment Sodium Potassium Chloride Carbon Dioxide Anion Gap BUN Creatinine Estimated GFR POC Glucose 93 82 Random Glucose Hemoglobin A1c Calcium Phosphorus Magnesium Nasal Screen MRSA (PCR) Microbiology 06/11/18 09:18 Urine Culture - Preliminary Catheterized Urine No growth in 24 hours Impressions Cerebral Angiography 06/11/18 00:00 CONCLUSION: 1. Acute occlusion on chronic critical stenosis of the left internal carotid at its origin. The patient is not a candidate for embolectomy. Head CT 06/11/18 08:28 CONCLUSION: 1. Subacute infarct involving a large portion of the left anterior sylvian region extending into the head of the caudate and basal ganglia involving both limbs of internal capsule without hemorrhage. 2. Perfusion and CTA pending Report was called by Dr. Ring at 8 50am Head CTA 06/11/18 08:28 CONCLUSION: 1. Embolic occlusion on the left. CT suggests an older stroke then suggested by history. Report was called by Dr. Ring at 0905 AM. Neck CTA 06/11/18 08:28 CONCLUSION: 1. 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 Ring at [address] CAD 06/11/18 08:29 CONCLUSION: Physiological brain perfusion parameters with RAPID analysis as above. The decision for consideration of therapy is multi factorial and multi disciplinary relying on subjective and objective clinical data. This data is not construed or intended to be the sole determinant of treatment eligibility. Head MRI 06/11/18 10:22 CONCLUSION: 1. Large area of infarction as above from known embolic disease in the distal M1 segment of the left anterior cerebral artery. There is no significant hemorrhage as yet. 2. No other ischemic changes are evident. Head CT 06/12/18 05:00 CONCLUSION: 1. Expected evolution of the left MCA infarct involving the anterior left parietal lobe. 2. No parenchymal hemorrhage. No midline shift. No acute intracranial process. . .
--- NOTE | 2018-06-12 14:35 | MB ---
cc: Jonathon Avila MD DATE: 06/12/2018 CONSULTING PHYSICIAN: Jonathon Avila MD, vascular surgery REASON FOR CONSULTATION: Left internal carotid artery occlusion, left hemispheric stroke. HISTORY OF PRESENT ILLNESS: This 68-year-old male presented to the emergency department after found with altered mentation and garbled speech. The patient underwent full workup and was found to have occlusion of the left internal carotid artery from the bifurcation up into the middle cerebral artery. Clot retrieval could not be performed because a wire could not be passed and the case was aborted. Family would like to assess any vascular options. PAST MEDICAL HISTORY: COPD, hyperlipidemia, rheumatoid arthritis. PAST SURGICAL HISTORY: Previous back surgery and this is obtained from the record. SOCIAL HISTORY: The patient smokes about a pack a day for most of his adult life. Does not drink other than social. PHYSICAL EXAMINATION: GENERAL: Reveals a 68-year-old male. HEENT: Normocephalic. No trauma to the head. Pupils are equal and reactive. Extraocular muscles intact. NECK: Unilateral carotid pulses in the upper portion of the neck, bilateral carotid pulses in the lower portion consistent with patent common carotid artery bilaterally. CHEST: Bilateral breath sounds, decreased with both lungs. Patient has significant degree of chronic obstructive pulmonary disease. HEART: Regular rhythm. The patient is in sinus rhythm at this time. He is not in atrial fibrillation. NEUROLOGIC: Exam reveals the patient follows simple commands. He is aphasic at this time. Cranial nerves are intact but for the obvious aphasia, so this cannot be tested. He also sticks out his tongue. The patient does have facial droop on the right. Right arm is 3/5, right leg is about 3/5 or maybe more. Left is normal. LABORATORY DATA: I reviewed laboratory and diagnostic procedures. The patient has complete occlusion of left internal carotid artery. On the right side, he does have an ulcer in the proximal internal carotid artery just of bifurcation, but there is no significant stenosis so this should be left alone. As far as the left side is concerned, there is no therapy here. The patient will remain occluded and unfortunately there are no surgical options with full occlusion. I thank you very much for the referral. MD MARVA Barber/therese , 02:09 PM , 02:18 PM [email or web address]
--- NOTE | 2018-06-12 20:08 | P.PNNEU ---
Subjective Subjective Comments: no new neuro sx. Has expressive and receptive aphasia Active Medications: Active Medications Acetaminophen (Tylenol) 650 mg PO Q6H PRN PRN Reason: TEMPERATURE > 101 F Albuterol (Duoneb Neb (Prn)) 1 ampul NEB Q2HR NEB PRN PRN Reason: WHEEZING Aspirin (Aspirin Supp) 300 mg RECTAL DAILY [facility] Last Admin: 06/12/18 08:37 Dose: 300 mg Atorvastatin Calcium (Lipitor) 80 mg PO DAILY [facility] Last Admin: 06/12/18 08:37 Dose: Not Given Bisacodyl (Dulcolax Supp) 10 mg RECTAL DAILY PRN PRN Reason: if no BM in last 24h Chlorhexidine Gluconate (Chlorhexidine 2% Cloth) 3 pack TOPICAL DAILY@0400 [facility] Stop: 06/17/18 03:59 Last Admin: 06/12/18 05:20 Dose: 3 pack Chlorhexidine Gluconate (Chlorhexidine 2% Cloth) 3 pack TOPICAL DAILY@0400 PRN PRN Reason: Extra cloth needed Stop: 06/17/18 03:59 Dextrose (D50w Vial) 50 ml IV.PUSH UNSCH PRN PRN Reason: PER HYPOGLYCEMIA PROTOCOL Glucagon (Glucagon Inj) 1 mg OTHER PRN PRN PRN Reason: for Hypoglycemia Protocol Hydralazine HCl (Apresoline Inj) 10 mg IV.PUSH Q30M PRN PRN Reason: sbp > 180 Sodium Chloride (Ns Inj) 1,000 mls @ 70 mls/hr IV.CONT .[id number] [facility] Last Infusion: 06/12/18 18:10 Dose: 70 mls/hr Magnesium Sulfate 4 gm/ Sodium (Chloride) 100 mls @ 50 mls/hr IV.SIG UNSCH PRN PRN Reason: For Magnesium 0.9 - 1.1 mg/dL Magnesium Sulfate 2 gm/ Sodium (Chloride) 100 mls @ 50 mls/hr IV.SIG UNSCH PRN PRN Reason: For Magnesium 1.2 - 1.6 mg/dL Potassium Chloride (Kcl 40 Meq Premix Inj) 40 meq in 100 mls @ 25 mls/hr IV.SIG Q2H PRN PRN Reason: For Potassium 2.8 - 3.2 mEq/L Potassium Chloride (Kcl 20 Meq Premix Inj) 20 meq in 100 mls @ 50 mls/hr IV.SIG Q2H PRN PRN Reason: For Potassium 3.3 - 3.5 mEq/L Potassium Chloride (Kcl 40 Meq Premix Inj) 40 meq in 100 mls @ 25 mls/hr IV.SIG UNSCH PRN PRN Reason: For Potassium 3.3 - 3.5 mEq/L Potassium Chloride (Kcl 20 Meq Premix Inj) 20 meq in 100 mls @ 50 mls/hr IV.SIG Q2H PRN PRN Reason: For Potassium 2.8 - 3.2 mEq/L Potassium Phosphate 30 mmol/ (Sodium Chloride) 260 mls @ 42 mls/hr IV.SIG UNSCH PRN PRN Reason: SEE LABEL COMMENTS Sodium Phosphate 30 mmol/ (Sodium Chloride) 260 mls @ 42 mls/hr IV.SIG UNSCH PRN PRN Reason: For Phosphorus < 2.5 mg/dL Insulin Human Regular (Novolin R Correctional Sugar Inj) 0 units SQ Q6HR [facility]; Protocol Last Admin: 06/12/18 18:11 Dose: Not Given Labetalol HCl (Trandate Inj) 10 mg IV.PUSH Q30M PRN PRN Reason: sbp > 180 Lactulose (Lactulose Liq) 30 ml PO BID [facility] Last Admin: 06/12/18 08:37 Dose: Not Given Magnesium Oxide (Mag-Ox) 800 mg PO UNSCH PRN PRN Reason: For Magnesium 1.2 - 1.6 mg/dL Ondansetron HCl (Zofran Inj) 4 mg IV.PUSH Q6H PRN PRN Reason: NAUSEA OR VOMITING Polyethylene Glycol (Miralax) 17 gm PO BID [facility] Last Admin: 06/12/18 08:37 Dose: Not Given Potassium Chloride (Kcl Liq) 40 meq PO UNSCH PRN PRN Reason: Potassium level 3.3-3.5 mEq/L Potassium Chloride (Kcl Liq) 40 meq PO UNSCH PRN PRN Reason: POTASSIUM LESS THAN 3.5 Potassium Phosphate (K-Phos Original) 2,000 mg PO Q4H PRN PRN Reason: Phosphorus Less Than 2.5 mg/dL Potassium Phosphate (K-Phos Original) 2,000 mg PO UNSCH PRN PRN Reason: SEE LABEL COMMENTS Senna/Docusate Sodium (Shaunna-Colace) 1 tab PO BID [facility] Last Admin: 06/12/18 08:37 Dose: Not Given Sodium Chloride (Ns Flush) 2 ml IV.FLUSH BID [facility] Last Admin: 06/12/18 08:37 Dose: 2 ml Sodium Chloride (Ns Flush) 2 ml IV.FLUSH PRN PRN PRN Reason: FLUSH AFTER USING IV ACCESS Allergies/Adverse Reactions: Allergies Allergy/AdvReac Type Severity Reaction Status Date / Time penicillin G Allergy Severe SWELLING Verified 06/11/18 08:40 Physical Exam Vital signs: Vital Signs 06/11/18 21:00 06/11/18 22:00 06/11/18 23:00 Temperature Pulse Rate 70 67 68 Respiratory Rate 18 17 18 Blood Pressure 113/61 132/63 112/63 Pulse Oximetry 96 97 97 06/12/18 00:00 06/12/18 01:00 06/12/18 02:00 Temperature 99.1 F Pulse Rate 65 66 62 Respiratory Rate 16 22 18 Blood Pressure 127/71 118/58 L 122/63 Pulse Oximetry 96 93 L 95 06/12/18 03:00 06/12/18 04:00 06/12/18 05:00 Temperature 98.8 F Pulse Rate 59 L 75 60 Respiratory Rate 17 18 21 Blood Pressure 117/62 134/73 130/59 L Pulse Oximetry 92 L 94 L 95 06/12/18 06:00 06/12/18 07:00 06/12/18 08:00 Temperature 98.1 F Pulse Rate 65 62 64 Respiratory Rate 12 18 26 H Blood Pressure 125/60 114/65 120/67 Pulse Oximetry 91 L 94 L 94 L 06/12/18 09:00 06/12/18 10:00 06/12/18 11:00 Temperature Pulse Rate 65 70 62 Respiratory Rate 18 32 H 15 Blood Pressure 124/67 120/58 L 125/72 Pulse Oximetry 97 95 96 06/12/18 12:00 06/12/18 13:00 06/12/18 14:00 Temperature 98.6 F Pulse Rate 62 67 67 Respiratory Rate 19 27 H 23 Blood Pressure 128/62 128/62 119/66 Pulse Oximetry 95 96 94 L 06/12/18 15:00 06/12/18 16:00 06/12/18 17:00 Temperature 98.0 F Pulse Rate 66 65 64 Respiratory Rate 21 29 H 30 H Blood Pressure 118/65 120/59 L 145/72 H Pulse Oximetry 93 L 96 95 06/12/18 18:00 Temperature Pulse Rate 67 Respiratory Rate 32 H Blood Pressure 131/58 L Pulse Oximetry 97 Intake & Output 06/12/18 06/12/18 06/13/18 06:59 18:59 06:59 Intake Total 500 / 500 957 / 957 Output Total 200 / 200 500 / 500 Balance 300 / 300 457 / 457 Weight 77.1 kg Intake: IV 500 / 500 857 / 857 NS Inj 1,000 ML @ 70 mls/hr IV. 500 / 500 857 / 857 CONT .[id number] [facility] Rx#:[id number] Oral 0 / 0 100 / 100 Output: Urine 200 / 200 Urine Amount (Catheter) 500 / 500 Condom 500 / 500 Other: Date of Last Bowel Movement 06/10/18 # Bowel Movements 0 - Routine Neurological Exam lethargic but arouses . does not follow complex commands. Speech is nonfluent CN--right upper motor neuron cn 7 PERRL motor--0-1/5 RUE and RLE - Urinary Catheter Management Straight Cath placed during this visit: yes, but has since been removed by the nurse Reason for continuing: Not indwelling catheter Insertion date: 06/11/18 Insertion time: 09:15 Removal date: 06/11/18 Removal time: 09:16 Condom Cath placed during this visit: no Objective Radiology Results: CT brain--evolving left mca stroke. No hemorrhage. no midline shift Laboratory Results - last 24 hr 06/11/18 06/11/18 06/12/18 08:30 22:38 03:57 WBC 9.0 RBC 4.45 L Hgb 14.5 Hct 41.2 MCV 92.7 MCH 32.5 MCHC 35.1 RDW 13.5 Plt Count 191 MPV 8.6 Neut % (Auto) 66.9 Lymph % (Auto) 23.7 [place] % (Auto) 7.8 Eos % (Auto) 1.2 Baso % (Auto) 0.4 Neut # (Auto) 6.0 Lymph # (Auto) 2.1 [place] # (Auto) 0.7 Eos # (Auto) 0.1 Baso # (Auto) 0.0 WBC Differential . Differential Comment Auto diff final Sodium Potassium Chloride Carbon Dioxide Anion Gap BUN Creatinine Estimated GFR POC Glucose 88 Random Glucose Hemoglobin A1c 5.7 Calcium Phosphorus Magnesium 06/12/18 06/12/18 06/12/18 03:57 05:13 12:12 WBC RBC Hgb Hct MCV MCH MCHC RDW Plt Count MPV Neut % (Auto) Lymph % (Auto) [place] % (Auto) Eos % (Auto) Baso % (Auto) Neut # (Auto) Lymph # (Auto) [place] # (Auto) Eos # (Auto) Baso # (Auto) WBC Differential Differential Comment Sodium 147 H Potassium 3.6 Chloride 116 H Carbon Dioxide 22.7 Anion Gap 8 BUN 12 Creatinine 0.90 Estimated GFR 84 L POC Glucose 93 82 Random Glucose 82 Hemoglobin A1c Calcium 7.9 L Phosphorus 2.3 L Magnesium 2.1 06/12/18 16:35 WBC RBC Hgb Hct MCV MCH MCHC RDW Plt Count MPV Neut % (Auto) Lymph % (Auto) [place] % (Auto) Eos % (Auto) Baso % (Auto) Neut # (Auto) Lymph # (Auto) [place] # (Auto) Eos # (Auto) Baso # (Auto) WBC Differential Differential Comment Sodium Potassium Chloride Carbon Dioxide Anion Gap BUN Creatinine Estimated GFR POC Glucose 77 Random Glucose Hemoglobin A1c Calcium Phosphorus Magnesium Microbiology 06/11/18 09:18 Urine Culture - Preliminary Catheterized Urine No growth in 24 hours Review/Management - Review/Management Plan: left mca stroke. left carotid occlusion
[2018-06-13] MEDS: Chlorhexidine Gluconate 2% 1 Pack (2 Cloths) TOPICAL SCH (03:27)
[2018-06-13] MEDS: Sod Chloride 0.9% Inj 1,000 ML IV.CONT SCH ×2 (03:44→19:46)
--- NOTE | 2018-06-13 05:04 | P.PNIM ---
Subjective Interval history: Consulted by [facility] for med mgt and transfer of care. Chart Reviewed. Patient has aphasia. Seen with family discussed with nurse, cleared for transfer by neurosurgery Physical Exam Vital signs: Vital Signs 06/12/18 06:00 06/12/18 07:00 06/12/18 08:00 Temperature 98.1 F Pulse Rate 65 62 64 Respiratory Rate 12 18 26 H Blood Pressure 125/60 114/65 120/67 Pulse Oximetry 91 L 94 L 94 L 06/12/18 09:00 06/12/18 10:00 06/12/18 11:00 Temperature Pulse Rate 65 70 62 Respiratory Rate 18 32 H 15 Blood Pressure 124/67 120/58 L 125/72 Pulse Oximetry 97 95 96 06/12/18 12:00 06/12/18 13:00 06/12/18 14:00 Temperature 98.6 F Pulse Rate 62 67 67 Respiratory Rate 19 27 H 23 Blood Pressure 128/62 128/62 119/66 Pulse Oximetry 95 96 94 L 06/12/18 15:00 06/12/18 16:00 06/12/18 17:00 Temperature 98.0 F Pulse Rate 66 65 64 Respiratory Rate 21 29 H 30 H Blood Pressure 118/65 120/59 L 145/72 H Pulse Oximetry 93 L 96 95 06/12/18 18:00 06/12/18 19:00 06/12/18 20:00 Temperature 98.5 F Pulse Rate 67 64 63 Respiratory Rate 32 H 16 16 Blood Pressure 131/58 L 127/64 122/83 Pulse Oximetry 97 95 95 06/12/18 20:08 06/12/18 21:00 06/12/18 22:00 Temperature Pulse Rate 69 69 Respiratory Rate 18 20 Blood Pressure 137/67 121/62 Pulse Oximetry 95 95 93 L 06/12/18 23:00 06/13/18 00:00 06/13/18 01:00 Temperature 99.2 F Pulse Rate 62 61 77 Respiratory Rate 19 18 16 Blood Pressure 117/57 L 112/56 L 125/75 Pulse Oximetry 92 L 93 L 94 L 06/13/18 02:00 06/13/18 03:00 06/13/18 04:00 Temperature 98.8 F Pulse Rate 64 62 67 Respiratory Rate 18 19 20 Blood Pressure 124/59 L 124/61 135/65 Pulse Oximetry 93 L 95 97 Intake & Output 06/12/18 06/12/18 06/13/18 06:59 18:59 06:59 Intake Total 500 / 500 957 / 957 1000 / 1000 Output Total 200 / 200 500 / 500 Balance 300 / 300 457 / 457 1000 / 1000 Weight 77.1 kg Intake: IV 500 / 500 857 / 857 1000 / 1000 NS Inj 1,000 ML @ 70 mls/hr IV. 500 / 500 857 / 857 1000 / 1000 CONT .[id number] [facility] Rx#:[id number] Oral 0 / 0 100 / 100 Output: Urine 200 / 200 Urine Amount (Catheter) 500 / 500 Condom 500 / 500 Other: Date of Last Bowel Movement 06/10/18 # Bowel Movements 0 Narrative: GENERAL: Middle-age male, lying in bed HEENT: Normocephalic. Atraumatic. Pupils are 3 mm, equal, round, reactive, conjugate. Mucous membranes are moist CHEST: Equal chest rise. Room air. CARDIOVASCULAR: Normal rate, regular rhythm. Sinus by telemetry. ABDOMEN: Soft, nontender, nondistended. No guarding. MUSCULOSKELETAL: Pulses 2+. No peripheral edema. NEUROLOGICAL: RASS 0. The Patient is awake and alert. Patient has expressive and receptive aphasia. Intermittently follow basic commands. He does move all 4 extremities spontaneously. Right upper extremity 3 out of 5 power. All other extremities 5 out of 5. Unable to determine his sensation. Gait not assessed. Urinary Catheter Management Straight: Cath placed during this visit: yes, but has since been removed by the nurse Reason for continuing: Not indwelling catheter Insertion date: 06/11/18 Insertion time: 09:15 Removal date: 06/11/18 Removal time: 09:16 Condom: Cath placed during this visit: no Results Labs CBC & Chem 7: 06/13/18 05:14 06/13/18 05:14 Labs: Microbiology 06/11/18 09:18 Catheterized Urine Urine Culture - Preliminary No growth in 24 hours Imaging Imaging: ITS Impressions Cerebral Angiography 06/11/18 00:00 CONCLUSION: 1. Acute occlusion on chronic critical stenosis of the left internal carotid at its origin. The patient is not a candidate for embolectomy. Head CTA 06/11/18 08:28 CONCLUSION: 1. Embolic occlusion on the left. CT suggests an older stroke then suggested by history. Report was called by Dr. Ring at 0905 AM. Neck CTA 02/18/19 08:28 CONCLUSION: 1. 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 Ring at [address] CAD 06/11/18 08:29 CONCLUSION: Physiological brain perfusion parameters with RAPID analysis as above. The decision for consideration of therapy is multi factorial and multi disciplinary relying on subjective and objective clinical data. This data is not construed or intended to be the sole determinant of treatment eligibility. Head MRI 06/11/18 10:22 CONCLUSION: 1. Large area of infarction as above from known embolic disease in the distal M1 segment of the left anterior cerebral artery. There is no significant hemorrhage as yet. 2. No other ischemic changes are evident. Head CT 06/12/18 05:00 CONCLUSION: 1. Expected evolution of the left MCA infarct involving the anterior left parietal lobe. 2. No parenchymal hemorrhage. No midline shift. No acute intracranial process. . . Assessment and Plan Plan This is a 68-year-old male with acute left M1 MCA CVA and left ICA occlusion. Admit to ICU. Given the suspected large volume infarct, would be very high risk for hemorrhagic conversion. Will allow permissive hypertension, but would target his blood pressure under 180 to mitigate risks of hemorrhagic conversion. Acute left embolic M1 MCA CVA left ICA occlusion Acute encephalopathy Dense receptive and expressive aphasia Hypertensive Emergency Frequent neurochecks. Pureed with honey thick MRI brain: large area of infarct in the left anterior sylvian region extending to the head of the caudate involving the anterior limb of the internal capsule Lipids. Statin based on lipid profile, atorvastatin started (patient on Crestor) A1c 5.7 2D echo, an estimated ejection fraction in the range of 55-60%. 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
[2018-06-13 05:40] LABS: Baso % (Auto) 0.3 % (0.0-2.0); Eos # (Auto) 0.1 th/mm3 (0.0-0.4); Eos % (Auto) 1.1 % (0.0-4.0); Hematocrit 39.4 % (39.0-51.0); Hemoglobin 13.8 gm/dL (13.0-17.0); Lymph # (Auto) 1.9 th/mm3 (1.0-4.8); Lymph % (Auto) 19.3 % (9.0-44.0); Mean Corpuscular HGB Conc 35.1 % (32.0-36.0); Mean Corpuscular Hemoglobin 31.6 pg (27.0-34.0); Mean Corpuscular Volume 90.1 fL (80.0-100.0); Mean Platelet Volume 8.3 fL (7.0-11.0); Mono # (Auto) 0.9 th/mm3 (0.0-0.9); Mono % (Auto) 9.1 % (0.0-8.0); Neut % (Auto) 70.2 % (16.0-70.0); Platelet Count 187 th/mm3 (150-450); Red Blood Count 4.38 mil/mm3 (4.50-5.90); Red Cell Distribution Width 13.4 % (11.6-17.2); White Blood Count 9.9 th/mm3 (4.0-11.0)
[2018-06-13 06:09] LABS: Anion Gap 10 meq/L (5-15); Blood Urea Nitrogen 10 mg/dL (7-18); Calcium 7.7 mg/dL (8.5-10.1); Carbon Dioxide 20.7 meq/L (21.0-32.0); Chloride 114 meq/L (98-107); Glomerular Filtration Rate Greater Than 89 mL/min (>89); Glucose,Random 77 mg/dL (74-106); Magnesium 2.1 mg/dL (1.5-2.5); Phosphorus 2.3 mg/dL (2.5-4.9); Potassium 3.5 meq/L (3.5-5.1); Sodium 145 meq/L (136-145)
--- NOTE | 2018-06-13 09:57 | P.PNNS ---
Subjective Interval history: aphasic <Hermelinda Medina - Last Filed: 06/13/18 09:54> Physical Exam Vital signs: Vital Signs 06/12/18 10:00 06/12/18 11:00 06/12/18 12:00 Temperature 98.6 F Pulse Rate 70 62 62 Respiratory Rate 32 H 15 19 Blood Pressure 120/58 L 125/72 128/62 Pulse Oximetry 95 96 95 06/12/18 13:00 06/12/18 14:00 06/12/18 15:00 Temperature Pulse Rate 67 67 66 Respiratory Rate 27 H 23 21 Blood Pressure 128/62 119/66 118/65 Pulse Oximetry 96 94 L 93 L 06/12/18 16:00 06/12/18 17:00 06/12/18 18:00 Temperature 98.0 F Pulse Rate 65 64 67 Respiratory Rate 29 H 30 H 32 H Blood Pressure 120/59 L 145/72 H 131/58 L Pulse Oximetry 96 95 97 06/12/18 19:00 06/12/18 20:00 06/12/18 20:08 Temperature 98.5 F Pulse Rate 64 63 Respiratory Rate 16 16 Blood Pressure 127/64 122/83 Pulse Oximetry 95 95 95 06/12/18 21:00 06/12/18 22:00 06/12/18 23:00 Temperature Pulse Rate 69 69 62 Respiratory Rate 18 20 19 Blood Pressure 137/67 121/62 117/57 L Pulse Oximetry 95 93 L 92 L 06/13/18 00:00 06/13/18 01:00 06/13/18 02:00 Temperature 99.2 F Pulse Rate 61 77 64 Respiratory Rate 18 16 18 Blood Pressure 112/56 L 125/75 124/59 L Pulse Oximetry 93 L 94 L 93 L 06/13/18 03:00 06/13/18 04:00 06/13/18 05:00 Temperature 98.8 F Pulse Rate 62 67 66 Respiratory Rate 19 20 22 Blood Pressure 124/61 135/65 126/68 Pulse Oximetry 95 97 93 L 06/13/18 06:00 06/13/18 08:23 Temperature Pulse Rate 66 Respiratory Rate 21 Blood Pressure 128/61 Pulse Oximetry 94 L 95 Intake & Output 06/12/18 06/13/18 06/13/18 18:59 06:59 18:59 Intake Total 957 / 957 1000 / 1000 Output Total 500 / 500 300 / 300 Balance 457 / 457 700 / 700 Weight 76.4 kg Intake: IV 857 / 857 1000 / 1000 NS Inj 1,000 ML @ 70 mls/hr IV. 857 / 857 1000 / 1000 CONT .[id number] [facility] Rx#:[id number] Oral 100 / 100 0 / 0 Output: Urine 300 / 300 Urine Amount (Catheter) 500 / 500 Condom 500 / 500 Other: Date of Last Bowel Movement 06/10/18 # Bowel Movements 0 Narrative: Awake and alert complete expressive aphasia and a receptive dysphasia pupils equal, reactive Motor examination reveals 4+/5+ weakness of the right upper and right lower extremity Sensory examination is intact to noxious stimuli. withdraws in all 4 extremities - Urinary Catheter Management Straight Cath placed during this visit: yes, but has since been removed by the nurse Reason for continuing: Not indwelling catheter Insertion date: 06/11/18 Insertion time: 09:15 Removal date: 06/11/18 Removal time: 09:16 Condom Cath placed during this visit: no <Hermelinda Medina - Last Filed: 06/13/18 09:54> Vital signs: Vital Signs 06/12/18 18:00 06/12/18 19:00 06/12/18 20:00 Temperature 98.5 F Pulse Rate 67 64 63 Respiratory Rate 32 H 16 16 Blood Pressure 131/58 L 127/64 122/83 Pulse Oximetry 97 95 95 06/12/18 20:08 06/12/18 21:00 06/12/18 22:00 Temperature Pulse Rate 69 69 Respiratory Rate 18 20 Blood Pressure 137/67 121/62 Pulse Oximetry 95 95 93 L 06/12/18 23:00 06/13/18 00:00 06/13/18 01:00 Temperature 99.2 F Pulse Rate 62 61 77 Respiratory Rate 19 18 16 Blood Pressure 117/57 L 112/56 L 125/75 Pulse Oximetry 92 L 93 L 94 L 06/13/18 02:00 06/13/18 03:00 06/13/18 04:00 Temperature 98.8 F Pulse Rate 64 62 67 Respiratory Rate 18 19 20 Blood Pressure 124/59 L 124/61 135/65 Pulse Oximetry 93 L 95 97 06/13/18 05:00 06/13/18 06:00 06/13/18 07:00 Temperature Pulse Rate 66 66 68 Respiratory Rate 22 21 32 H Blood Pressure 126/68 128/61 129/62 Pulse Oximetry 93 L 94 L 93 L 06/13/18 08:00 06/13/18 08:23 06/13/18 09:00 Temperature Pulse Rate 66 66 Respiratory Rate 25 H 26 H Blood Pressure 119/55 L 123/64 Pulse Oximetry 94 L 95 94 L 06/13/18 10:00 06/13/18 11:00 06/13/18 12:00 Temperature Pulse Rate 66 67 62 Respiratory Rate 22 33 H 20 Blood Pressure 118/67 127/57 L 132/63 Pulse Oximetry 93 L 95 95 Intake & Output 06/12/18 06/13/18 06/13/18 18:59 06:59 18:59 Intake Total 957 / 957 1000 / 1000 Output Total 500 / 500 300 / 300 Balance 457 / 457 700 / 700 Weight 76.4 kg Intake: IV 857 / 857 1000 / 1000 NS Inj 1,000 ML @ 70 mls/hr IV. 857 / 857 1000 / 1000 CONT .[id number] [facility] Rx#:[id number] Oral 100 / 100 0 / 0 Output: Urine 300 / 300 Urine Amount (Catheter) 500 / 500 Condom 500 / 500 Other: Date of Last Bowel Movement 06/10/18 # Bowel Movements 0 - Urinary Catheter Management Straight Cath placed during this visit: no Condom Cath placed during this visit: no <Jay Collins - Last Filed: 06/13/18 17:43> Assessment and Plan - Plan 68 y/o male with acute left middle cerebral artery stroke. RECOMMENDATIONS AND PLAN: At this point, certainly a conservative neurosurgical approach is warranted. He will be monitored and treated closely in the surgical intensive care unit. Depending on the results of the workup as well as his clinical course, we will determine the appropriate further diagnostic and therapeutic approach. If the patient deteriorates neurologically, one might consider pursuing a decompressive hemicraniectomy. However, this was discussed with the patient's son at the bedside and currently both him and his family are undecided due to the patient's previously expressed wishes. In any case, neurosurgical followup. 06/12/2018 patient neurologically stable continue with serial neuro checks stroke rehab PT, OT, ST will follow 06/13/2018 patient neurologically stable, continue stroke therapy and rehab patient clear for transfer out of [facility] or to rehab, no further interventions planned, NRS signing off, please call prn <Hermelinda Medina - Last Filed: 06/13/18 09:54> - Attending Attestation June 13, 2018 I personally interviewed and examined the patient. I reviewed the documentation , laboratory evaluation, and the imaging. I discussed the case with the neurosurgery team and we formulated a plan which was discussed with the patient and a family member at the bedside the patient has remained neurologically clinically stable following the left internal carotid artery occlusion and left middle cerebral artery stroke. At this point there is no indication for further neurosurgical evaluation and treatment and neurosurgery will sign off the case. Please reconsult as needed. <Jay Collins - Last Filed: 06/13/18 17:43>
[2018-06-13] MEDS: Senna/Docusate Sodium 8.6/50 MG Tablet PO SCH ×2 (10:04→22:21)
[2018-06-13] MEDS: Polyethylene Glycol 3350 17 GM Packet PO SCH ×2 (10:04→22:22)
[2018-06-13] MEDS: Sodium Chloride 0.9% 2 ML Flush BID IV.FLUSH SCH ×2 (10:05→22:22)
[2018-06-13] MEDS: Potassium Phosphate 500 MG Soluble Tablet PO SCH ×2 (12:43→22:21)
--- NOTE | 2018-06-13 13:52 | P.PNNEU ---
Subjective Subjective Comments: more lethargic, more difficult to arouse Active Medications: Active Medications Acetaminophen (Tylenol) 650 mg PO Q6H PRN PRN Reason: TEMPERATURE > 101 F Albuterol (Duoneb Neb (Prn)) 1 ampul NEB Q2HR NEB PRN PRN Reason: WHEEZING Aspirin (Ecotrin) 325 mg PO DAILY [facility] Last Admin: 06/13/18 12:43 Dose: 325 mg Atorvastatin Calcium (Lipitor) 80 mg PO DAILY [facility] Last Admin: 06/13/18 10:04 Dose: 80 mg Bisacodyl (Dulcolax Supp) 10 mg RECTAL DAILY PRN PRN Reason: if no BM in last 24h Chlorhexidine Gluconate (Chlorhexidine 2% Cloth) 3 pack TOPICAL DAILY@0400 [facility] Stop: 06/17/18 03:59 Last Admin: 06/13/18 03:27 Dose: 3 pack Chlorhexidine Gluconate (Chlorhexidine 2% Cloth) 3 pack TOPICAL DAILY@0400 PRN PRN Reason: Extra cloth needed Stop: 06/17/18 03:59 Clonidine HCl (Catapres) 0.1 mg PO Q6H PRN PRN Reason: SEE LABEL COMMENTS Dextroamphetamine Sulfate (Dextrostat) 10 mg PO BID [facility] Dextrose (D50w Vial) 50 ml IV.PUSH UNSCH PRN PRN Reason: PER HYPOGLYCEMIA PROTOCOL Enalaprilat (Vasotec Inj) 1.25 mg IV.PUSH Q6H PRN PRN Reason: SEE LABEL COMMENTS Glucagon (Glucagon Inj) 1 mg OTHER PRN PRN PRN Reason: for Hypoglycemia Protocol Sodium Chloride (Ns Inj) 1,000 mls @ 70 mls/hr IV.CONT .[id number] [facility] Last Admin: 06/13/18 03:44 Dose: 70 mls/hr Insulin Human Regular (Novolin R Correctional Sugar Inj) 0 units SQ Q6HR [facility]; Protocol Last Admin: 06/12/18 23:36 Dose: Not Given Lactulose (Lactulose Liq) 30 ml PO BID [facility] Last Admin: 06/13/18 10:04 Dose: 30 ml Ondansetron HCl (Zofran Inj) 4 mg IV.PUSH Q6H PRN PRN Reason: NAUSEA OR VOMITING Oxycodone/Acetaminophen (Percocet 5/325 Mg) 1 tab PO Q12H PRN PRN Reason: PAIN SCALE 1 TO 10 Polyethylene Glycol (Miralax) 17 gm PO BID [facility] Last Admin: 06/13/18 10:04 Dose: 17 gm Potassium Phosphate (K-Phos Original) 500 mg PO BID [facility] Last Admin: 06/13/18 12:43 Dose: 500 mg Senna/Docusate Sodium (Shaunna-Colace) 1 tab PO BID [facility] Last Admin: 06/13/18 10:04 Dose: 1 tab Sodium Chloride (Ns Flush) 2 ml IV.FLUSH BID [facility] Last Admin: 06/13/18 10:05 Dose: 2 ml Sodium Chloride (Ns Flush) 2 ml IV.FLUSH PRN PRN PRN Reason: FLUSH AFTER USING IV ACCESS Allergies/Adverse Reactions: Allergies Allergy/AdvReac Type Severity Reaction Status Date / Time penicillin G Allergy Severe SWELLING Verified 06/11/18 08:40 Physical Exam Vital signs: Vital Signs 06/12/18 14:00 06/12/18 15:00 06/12/18 16:00 Temperature 98.0 F Pulse Rate 67 66 65 Respiratory Rate 23 21 29 H Blood Pressure 119/66 118/65 120/59 L Pulse Oximetry 94 L 93 L 96 06/12/18 17:00 06/12/18 18:00 06/12/18 19:00 Temperature Pulse Rate 64 67 64 Respiratory Rate 30 H 32 H 16 Blood Pressure 145/72 H 131/58 L 127/64 Pulse Oximetry 95 97 95 06/12/18 20:00 06/12/18 20:08 06/12/18 21:00 Temperature 98.5 F Pulse Rate 63 69 Respiratory Rate 16 18 Blood Pressure 122/83 137/67 Pulse Oximetry 95 95 95 06/12/18 22:00 06/12/18 23:00 06/13/18 00:00 Temperature 99.2 F Pulse Rate 69 62 61 Respiratory Rate 20 19 18 Blood Pressure 121/62 117/57 L 112/56 L Pulse Oximetry 93 L 92 L 93 L 06/13/18 01:00 06/13/18 02:00 06/13/18 03:00 Temperature Pulse Rate 77 64 62 Respiratory Rate 16 18 19 Blood Pressure 125/75 124/59 L 124/61 Pulse Oximetry 94 L 93 L 95 06/13/18 04:00 06/13/18 05:00 06/13/18 06:00 Temperature 98.8 F Pulse Rate 67 66 66 Respiratory Rate 20 22 21 Blood Pressure 135/65 126/68 128/61 Pulse Oximetry 97 93 L 94 L 06/13/18 07:00 06/13/18 08:00 06/13/18 08:23 Temperature Pulse Rate 68 66 Respiratory Rate 32 H 25 H Blood Pressure 129/62 119/55 L Pulse Oximetry 93 L 94 L 95 06/13/18 09:00 06/13/18 10:00 06/13/18 11:00 Temperature Pulse Rate 66 66 67 Respiratory Rate 26 H 22 33 H Blood Pressure 123/64 118/67 127/57 L Pulse Oximetry 94 L 93 L 95 06/13/18 12:00 Temperature Pulse Rate 62 Respiratory Rate 20 Blood Pressure 132/63 Pulse Oximetry 95 Intake & Output 06/12/18 06/13/18 06/13/18 18:59 06:59 18:59 Intake Total 957 / 957 1000 / 1000 Output Total 500 / 500 300 / 300 Balance 457 / 457 700 / 700 Weight 76.4 kg Intake: IV 857 / 857 1000 / 1000 NS Inj 1,000 ML @ 70 mls/hr IV. 857 / 857 1000 / 1000 CONT .[id number] [facility] Rx#:[id number] Oral 100 / 100 0 / 0 Output: Urine 300 / 300 Urine Amount (Catheter) 500 / 500 Condom 500 / 500 Other: Date of Last Bowel Movement 06/10/18 # Bowel Movements 0 - Routine Neurological Exam lethargic, arouses with difficulty. Does not follow commands PERRL Right facial weakness Moves lUE >> rue - Urinary Catheter Management Straight Cath placed during this visit: yes, but has since been removed by the nurse Reason for continuing: Not indwelling catheter Insertion date: 06/11/18 Insertion time: 09:15 Removal date: 06/11/18 Removal time: 09:16 Condom Cath placed during this visit: no Objective Laboratory Results - last 24 hr 06/12/18 06/12/18 06/13/18 16:35 22:38 05:14 WBC 9.9 RBC 4.38 L Hgb 13.8 Hct 39.4 MCV 90.1 MCH 31.6 MCHC 35.1 RDW 13.4 Plt Count 187 MPV 8.3 Neut % (Auto) 70.2 H Lymph % (Auto) 19.3 [place] % (Auto) 9.1 H Eos % (Auto) 1.1 Baso % (Auto) 0.3 Neut # (Auto) 7.0 Lymph # (Auto) 1.9 [place] # (Auto) 0.9 Eos # (Auto) 0.1 Baso # (Auto) 0.0 WBC Differential . Differential Comment Auto diff final Sodium Potassium Chloride Carbon Dioxide Anion Gap BUN Creatinine Estimated GFR POC Glucose 77 95 Random Glucose Calcium Phosphorus Magnesium 06/13/18 05:14 WBC RBC Hgb Hct MCV MCH MCHC RDW Plt Count MPV Neut % (Auto) Lymph % (Auto) [place] % (Auto) Eos % (Auto) Baso % (Auto) Neut # (Auto) Lymph # (Auto) [place] # (Auto) Eos # (Auto) Baso # (Auto) WBC Differential Differential Comment Sodium 145 Potassium 3.5 Chloride 114 H Carbon Dioxide 20.7 L Anion Gap 10 BUN 10 Creatinine 0.79 Estimated GFR Greater than 89 POC Glucose Random Glucose 77 Calcium 7.7 L Phosphorus 2.3 L Magnesium 2.1 Microbiology 06/11/18 09:18 Urine Culture - Final Catheterized Urine No growth in 48 hours Review/Management - Review/Management Plan: left mca stroke. left carotid occlusion check CT brain to r/o increase in cerebral edema due to lethargy
[2018-06-13] MEDS: Insulin NovoLIN Regular Correctional Sugar Inj SQ SCH ×3 (15:15→22:22)
--- NOTE | 2018-06-13 16:15 | CT ---
EXAM DATE: 06/13/2018 4:10 PM EST AGE/SEX: 68 years / Male INDICATIONS: Follow up left middle cerebral artery infarction.. CLINICAL DATA: This is the patient's subsequent encounter. Patient reports that signs and symptoms h ave been present for 2 days and indicates a pain score of 0/10. MEDICAL/SURGICAL HISTORY: Chronic obstructive pulmonary disease. Stroke. None. RADIATION DOSE: 47.21 CTDI (mGy) [place] [facility] [place]. . TECHNIQUE: CT of the head without contrast. Using automated exposure control and adjustment of the mA and/or kV according to patient size, radiation dose was kept as low as reasonably achievable to ob tain optimal diagnostic quality images. DICOM format image data is available electronically for revi ew and comparison. FINDINGS: There is a focal area of edema again noted involving the posterior left frontal lobe and anterior par ietal lobe without significant change. This effaces multiple sulci change. This also involves portion s of the left basal ganglia and caudate nucleus. There is slight flattening of the left anterior horn of the lateral ventricle which is not significantly changed. There is no midline shift. The posterio r fossa and brainstem remain unremarkable. There is no acute hemorrhage. Bone windows demonstrate no focal abnormality. CONCLUSION: 1. Stable appearance of the evolving left middle cerebral artery territory infarct. 2. No new hemorrhage or mass effect. Electronically signed by: Cali Saxena MD Board Certified Radiologist 06/13/2018 4:13 PM EST
[2018-06-14] MEDS: Insulin NovoLIN Regular Correctional Sugar Inj SQ SCH ×4 (00:45→17:08)
[2018-06-14] MEDS: Chlorhexidine Gluconate 2% 1 Pack (2 Cloths) TOPICAL SCH (03:06)
[2018-06-14] MEDS: Polyethylene Glycol 3350 17 GM Packet PO SCH ×2 (08:31→21:35)
[2018-06-14] MEDS: Allopurinol 100 MG Tablet PO SCH (08:32)
[2018-06-14] MEDS: Senna/Docusate Sodium 8.6/50 MG Tablet PO SCH ×2 (08:32→21:35)
[2018-06-14] MEDS: Potassium Phosphate 500 MG Soluble Tablet PO SCH ×2 (08:32→21:34)
[2018-06-14] MEDS: Fenofibrate 145 MG Tablet PO SCH (08:32)
[2018-06-14] MEDS: Pantoprazole Sodium 20 MG DR Tablet PO SCH (08:33)
[2018-06-14] MEDS: Sodium Chloride 0.9% 2 ML Flush BID IV.FLUSH SCH ×2 (08:33→21:35)
--- NOTE | 2018-06-14 11:54 | P.PNNEU ---
Subjective Subjective Comments: much more alert. No new c/o Active Medications: Active Medications Acetaminophen (Tylenol) 650 mg PO Q6H PRN PRN Reason: TEMPERATURE > 101 F Albuterol (Duoneb Neb (Prn)) 1 ampul NEB Q2HR NEB PRN PRN Reason: WHEEZING Allopurinol (Zyloprim) 100 mg PO DAILY [facility] Last Admin: 06/14/18 08:32 Dose: 100 mg Aspirin (Ecotrin) 325 mg PO DAILY [facility] Last Admin: 06/14/18 08:33 Dose: 325 mg Atorvastatin Calcium (Lipitor) 80 mg PO DAILY [facility] Last Admin: 06/14/18 08:32 Dose: 80 mg Bisacodyl (Dulcolax Supp) 10 mg RECTAL DAILY PRN PRN Reason: if no BM in last 24h Chlorhexidine Gluconate (Chlorhexidine 2% Cloth) 3 pack TOPICAL DAILY@0400 [facility] Stop: 06/17/18 03:59 Last Admin: 06/14/18 03:06 Dose: Not Given Chlorhexidine Gluconate (Chlorhexidine 2% Cloth) 3 pack TOPICAL DAILY@0400 PRN PRN Reason: Extra cloth needed Stop: 06/17/18 03:59 Clonidine HCl (Catapres) 0.1 mg PO Q6H PRN PRN Reason: SEE LABEL COMMENTS Dextroamphetamine Sulfate (Dextrostat) 10 mg PO BID [facility] Last Admin: 06/14/18 08:32 Dose: 10 mg Dextrose (D50w Vial) 50 ml IV.PUSH UNSCH PRN PRN Reason: PER HYPOGLYCEMIA PROTOCOL Enalaprilat (Vasotec Inj) 1.25 mg IV.PUSH Q6H PRN PRN Reason: SEE LABEL COMMENTS Fenofibrate (Tricor) 145 mg PO DAILY [facility] Last Admin: 06/14/18 08:32 Dose: 145 mg Glucagon (Glucagon Inj) 1 mg OTHER PRN PRN PRN Reason: for Hypoglycemia Protocol Sodium Chloride (Ns Inj) 1,000 mls @ 70 mls/hr IV.CONT .[id number] [facility] Last Admin: 06/13/18 19:46 Dose: 70 mls/hr Insulin Human Regular (Novolin R Correctional Sugar Inj) 0 units SQ Q6HR [facility]; Protocol Last Admin: 06/14/18 06:14 Dose: Not Given Lactulose (Lactulose Liq) 30 ml PO BID [facility] Last Admin: 06/14/18 08:32 Dose: 30 ml Ondansetron HCl (Zofran Inj) 4 mg IV.PUSH Q6H PRN PRN Reason: NAUSEA OR VOMITING Oxycodone/Acetaminophen (Percocet 5/325 Mg) 1 tab PO Q12H PRN PRN Reason: PAIN SCALE 1 TO 10 Pantoprazole Sodium (Protonix) 20 mg PO DAILY [facility] Last Admin: 06/14/18 08:33 Dose: 20 mg Polyethylene Glycol (Miralax) 17 gm PO BID [facility] Last Admin: 06/14/18 08:31 Dose: 17 gm Potassium Phosphate (K-Phos Original) 500 mg PO BID [facility] Last Admin: 06/14/18 08:32 Dose: 500 mg Senna/Docusate Sodium (Shaunna-Colace) 1 tab PO BID [facility] Last Admin: 06/14/18 08:32 Dose: 1 tab Sodium Chloride (Ns Flush) 2 ml IV.FLUSH BID [facility] Last Admin: 06/14/18 08:33 Dose: Not Given Sodium Chloride (Ns Flush) 2 ml IV.FLUSH PRN PRN PRN Reason: FLUSH AFTER USING IV ACCESS Vitamin D (Vitamin D3) 5,000 unit PO DAILY [facility] Allergies/Adverse Reactions: Allergies Allergy/AdvReac Type Severity Reaction Status Date / Time penicillin G Allergy Severe SWELLING Verified 06/11/18 08:40 Physical Exam Vital signs: Vital Signs 06/13/18 12:00 06/13/18 16:00 06/13/18 16:08 Temperature 98.8 F Pulse Rate 62 68 73 Respiratory Rate 18 33 H 44 H Blood Pressure 132/63 140/104 H 137/104 H Pulse Oximetry 95 94 L 96 06/13/18 16:11 06/13/18 16:14 06/13/18 17:00 Temperature Pulse Rate 66 63 Respiratory Rate 28 H 26 H Blood Pressure 131/61 Pulse Oximetry 95 97 06/13/18 18:00 06/13/18 19:00 06/13/18 19:56 Temperature Pulse Rate 61 66 Respiratory Rate 21 20 Blood Pressure Pulse Oximetry 95 92 L 93 L 06/13/18 20:00 06/13/18 22:07 06/13/18 23:40 Temperature 98.3 F Pulse Rate 62 Respiratory Rate 18 Blood Pressure 134/72 Pulse Oximetry 98 96 97 06/14/18 00:00 06/14/18 00:59 06/14/18 05:06 Temperature 97.7 F 98.1 F Pulse Rate 71 66 Respiratory Rate 14 18 18 Blood Pressure 138/63 119/66 Pulse Oximetry 100 98 Intake & Output 06/13/18 06/14/18 06/14/18 18:59 06:59 18:59 Intake Total 423 / 423 Output Total 600 / 600 500 / 500 Balance -177 / -177 -500 / -500 Weight 76.4 kg Intake: IV 143 / 143 NS Inj 1,000 ML @ 70 mls/hr IV. 143 / 143 CONT .[id number] [facility] Rx#:[id number] Oral 280 / 280 Output: Urine 500 / 500 Urine Amount (Catheter) 600 / 600 Condom 600 / 600 - Routine Neurological Exam alert, expressive aphasia. comprehension improved CN-eom intact perrl, right facial weakness MOTOR 3/5 RUE and RLE. 5/5 LUE and LLE - Urinary Catheter Management Straight Cath placed during this visit: yes, but has since been removed by the nurse Reason for continuing: Not indwelling catheter Insertion date: 06/11/18 Insertion time: 09:15 Removal date: 06/11/18 Removal time: 09:16 Condom Cath placed during this visit: no Objective Radiology Results: CT brain from yesterday--evolving Left MCa stroke with no increase in edema Laboratory Results - last 24 hr 06/14/18 00:43 POC Glucose 114 H Microbiology 06/11/18 09:18 Urine Culture - Final Catheterized Urine No growth in 48 hours Review/Management - Review/Management Plan: left mca stroke. left carotid occlusion ok to dc to rehab ([facility] if possible) on asa. RTO my office 3 weeks
--- NOTE | 2018-06-14 12:13 | P.PNIM ---
Subjective Interval history: Follow-up CVA. He is awake trying to converse. Following commands. Seen with family, RN and neurology Physical Exam Vital signs: Vital Signs 06/13/18 16:00 06/13/18 16:08 06/13/18 16:11 Temperature 98.8 F Pulse Rate 68 73 66 Respiratory Rate 33 H 44 H 28 H Blood Pressure 140/104 H 137/104 H Pulse Oximetry 94 L 96 95 06/13/18 16:14 06/13/18 17:00 06/13/18 18:00 Temperature Pulse Rate 63 61 Respiratory Rate 26 H 21 Blood Pressure 131/61 Pulse Oximetry 97 95 06/13/18 19:00 06/13/18 19:56 06/13/18 20:00 Temperature Pulse Rate 66 Respiratory Rate 20 Blood Pressure Pulse Oximetry 92 L 93 L 98 06/13/18 22:07 06/13/18 23:40 06/14/18 00:00 Temperature 98.3 F Pulse Rate 62 Respiratory Rate 18 14 Blood Pressure 134/72 Pulse Oximetry 96 97 06/14/18 00:59 06/14/18 05:06 Temperature 97.7 F 98.1 F Pulse Rate 71 66 Respiratory Rate 18 18 Blood Pressure 138/63 119/66 Pulse Oximetry 100 98 Intake & Output 06/13/18 06/14/18 06/14/18 18:59 06:59 18:59 Intake Total 423 / 423 Output Total 600 / 600 500 / 500 Balance -177 / -177 -500 / -500 Weight 76.4 kg Intake: IV 143 / 143 NS Inj 1,000 ML @ 70 mls/hr IV. 143 / 143 CONT .[id number] [facility] Rx#:[id number] Oral 280 / 280 Output: Urine 500 / 500 Urine Amount (Catheter) 600 / 600 Condom 600 / 600 Narrative: GENERAL: Middle-age male, in no distress CHEST: Equal chest rise. Room air. CARDIOVASCULAR: Normal rate, regular rhythm. Sinus by telemetry. ABDOMEN: Soft, nontender, nondistended. No guarding. MUSCULOSKELETAL: Pulses 2+. No peripheral edema. NEUROLOGICAL: RASS 0. The Patient is awake and alert. Patient has expressive and receptive aphasia. Intermittently follow basic commands. He does move all 4 extremities spontaneously. Right upper extremity 3 out of 5 power. All other extremities 5 out of 5. Unable to determine his sensation. Gait not assessed. Urinary Catheter Management Straight: Cath placed during this visit: yes, but has since been removed by the nurse Reason for continuing: Not indwelling catheter Insertion date: 06/11/18 Insertion time: 09:15 Removal date: 06/11/18 Removal time: 09:16 Condom: Cath placed during this visit: no Results Labs CBC & Chem 7: 06/14/18 13:37 06/14/18 13:37 Labs: Microbiology 06/11/18 09:18 Catheterized Urine Urine Culture - Final No growth in 48 hours Imaging Imaging: Impressions Head CT 06/13/18 13:50 CONCLUSION: 1. Stable appearance of the evolving left middle cerebral artery territory infarct. 2. No new hemorrhage or mass effect. Assessment and Plan Plan This is a 68-year-old male with acute left M1 MCA CVA and left ICA occlusion. Admit to ICU. Given the suspected large volume infarct, would be very high risk for hemorrhagic conversion. Will allow permissive hypertension, but would target his blood pressure under 180 to mitigate risks of hemorrhagic conversion. Acute left embolic M1 MCA CVA with left ICA occlusion, Acute encephalopathy and Dense receptive and expressive aphasia. Stable Hypertensive Emergency. Improved Frequent neurochecks. Pureed with honey thick MRI brain: large area of infarct in the left anterior sylvian region extending to the head of the caudate involving the anterior limb of the internal capsule Lipids. Statin based on lipid profile, atorvastatin started (patient on Crestor) A1c 5.7 2D echo, an estimated ejection fraction in the range of 55-60%. 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 Risk factor modification Advance diet per speech recommendations SCD and early OOB for DVT proph code Status: Full Progress Note: Quality VTE Deep Vein Thrombosis/Pulmonary Embolism Present on Admission: No
[2018-06-14 13:58] LABS: Baso % (Auto) 0.4 % (0.0-2.0); Eos # (Auto) 0.1 th/mm3 (0.0-0.4); Eos % (Auto) 0.9 % (0.0-4.0); Hematocrit 44.6 % (39.0-51.0); Lymph # (Auto) 1.6 th/mm3 (1.0-4.8); Lymph % (Auto) 16.8 % (9.0-44.0); Mean Corpuscular HGB Conc 33.5 % (32.0-36.0); Mean Corpuscular Hemoglobin 31.1 pg (27.0-34.0); Mean Corpuscular Volume 92.7 fL (80.0-100.0); Mean Platelet Volume 8.4 fL (7.0-11.0); Mono # (Auto) 0.8 th/mm3 (0.0-0.9); Mono % (Auto) 7.9 % (0.0-8.0); Neut # (Auto) 7.1 th/mm3 (1.8-7.7); Platelet Count 223 th/mm3 (150-450); Red Blood Count 4.81 mil/mm3 (4.50-5.90); White Blood Count 9.5 th/mm3 (4.0-11.0)
[2018-06-14] MEDS: Sod Chloride 0.9% Inj 1,000 ML IV.CONT SCH (14:05)
[2018-06-14 14:20] LABS: Anion Gap 7 meq/L (5-15); Blood Urea Nitrogen 10 mg/dL (7-18); Calcium 8.1 mg/dL (8.5-10.1); Carbon Dioxide 25.2 meq/L (21.0-32.0); Chloride 111 meq/L (98-107); Glomerular Filtration Rate Greater Than 89 mL/min (>89); Glucose,Random 99 mg/dL (74-106); Phosphorus 2.9 mg/dL (2.5-4.9); Potassium 3.6 meq/L (3.5-5.1); Sodium 143 meq/L (136-145)
--- NOTE | 2018-06-14 18:15 | P.CONREH ---
History of Present Illness Consult date: 06/14/18 Reason for Consult: Comprehensive rehabilitation evaluation History of Present Illness: Vitor Gooden is a 68-year-old jjwin-khry-lgsmvsgi male with past medical history significant for COPD and hyperlipidemia admitted to [facility] 06/11/18 with change in mental status and aphasia. Head CT was negative. CTA showed occluded left carotid artery and occluded left M1 branch of the MCA. Patient underwent attempted endovascular clot retrieval but IR unable to pass chronic occluded left ICA. MRI 06/11/18 showed large area of infarction from known embolic disease in the distal M1 segment. Permissive hypertension with target of blood pressure under 180 to decrease risk of hemorrhagic conversion recommended. Patient has been started in atrial vastus statin. Echocardiogram showed ejection fraction 55-60%. Most recent head CT 06/13/18 showed: stable appearance of the evolving left middle cerebral artery territory infarct.No new hemorrhage or mass effect. Review of Systems ROS Unobtainable: unobtainable due to mental status and other (Unable to obtain due to aphasia) PMFSH History History Provided By: Family Member and Medical Record Tobacco History Second Hand Smoke Exposure: Yes Tobacco Use In Past 30 Days: Yes Smoking Status: Current every day smoker Tobacco Type: Cigarettes Alcohol History How Often Do You Have a Drink Containing Alcohol: Monthly or less Substance Use History Substance History: Active Abuse Substance Use Type Marijuana: Status: Active Route Used: Inhalation Travel History Recent Travel in the [place] Within the Last 8 Weeks: No Recent Travel Out of the Country Within the Last 8 Weeks: No Immunization History Tetanus Immunization: Unsure Hx Influenza Vaccine This Season: Unable to Assess Medications and Allergies Allergies Allergy/AdvReac Type Severity Reaction Status Date / Time penicillin G Allergy Severe SWELLING Verified 06/11/18 08:40 Home Medications Medication Instructions Recorded Confirmed Type allopurinol 100 mg PO DAILY 06/11/18 06/11/18 History amphetamine sulfate 10 mg PO BID 06/11/18 06/11/18 History cholecalciferol (vitamin D3) 5,000 unit PO DAILY 06/11/18 06/11/18 History [Vitamin D3] fenofibrate 160 mg PO DAILY 06/11/18 06/11/18 History omeprazole 20 mg PO DAILY 06/11/18 06/11/18 History oxycodone-acetaminophen 1 tab PO Q12H PRN 06/11/18 06/11/18 History rosuvastatin 20 mg PO DAILY 06/11/18 06/11/18 History Active Medications: Active Medications Acetaminophen (Tylenol) 650 mg PO Q6H PRN PRN Reason: TEMPERATURE > 101 F Albuterol (Duoneb Neb (Prn)) 1 ampul NEB Q2HR NEB PRN PRN Reason: WHEEZING Allopurinol (Zyloprim) 100 mg PO DAILY [facility] Last Admin: 06/14/18 08:32 Dose: 100 mg Aspirin (Ecotrin) 325 mg PO DAILY [facility] Last Admin: 06/14/18 08:33 Dose: 325 mg Atorvastatin Calcium (Lipitor) 80 mg PO DAILY [facility] Last Admin: 06/14/18 08:32 Dose: 80 mg Bisacodyl (Dulcolax Supp) 10 mg RECTAL DAILY PRN PRN Reason: if no BM in last 24h Chlorhexidine Gluconate (Chlorhexidine 2% Cloth) 3 pack TOPICAL DAILY@0400 [facility] Stop: 06/17/18 03:59 Last Admin: 06/14/18 03:06 Dose: Not Given Chlorhexidine Gluconate (Chlorhexidine 2% Cloth) 3 pack TOPICAL DAILY@0400 PRN PRN Reason: Extra cloth needed Stop: 06/17/18 03:59 Clonidine HCl (Catapres) 0.1 mg PO Q6H PRN PRN Reason: SEE LABEL COMMENTS Dextroamphetamine Sulfate (Dextrostat) 10 mg PO BID [facility] Last Admin: 06/14/18 08:32 Dose: 10 mg Dextrose (D50w Vial) 50 ml IV.PUSH UNSCH PRN PRN Reason: PER HYPOGLYCEMIA PROTOCOL Enalaprilat (Vasotec Inj) 1.25 mg IV.PUSH Q6H PRN PRN Reason: SEE LABEL COMMENTS Fenofibrate (Tricor) 145 mg PO DAILY [facility] Last Admin: 06/14/18 08:32 Dose: 145 mg Glucagon (Glucagon Inj) 1 mg OTHER PRN PRN PRN Reason: for Hypoglycemia Protocol Sodium Chloride (Ns Inj) 1,000 mls @ 70 mls/hr IV.CONT .[id number] [facility] Last Infusion: 06/14/18 17:08 Dose: Infused Insulin Human Regular (Novolin R Correctional Sugar Inj) 0 units SQ Q6HR [facility]; Protocol Last Admin: 06/14/18 17:08 Dose: Not Given Lactulose (Lactulose Liq) 30 ml PO BID [facility] Last Admin: 06/14/18 08:32 Dose: 30 ml Ondansetron HCl (Zofran Inj) 4 mg IV.PUSH Q6H PRN PRN Reason: NAUSEA OR VOMITING Oxycodone/Acetaminophen (Percocet 5/325 Mg) 1 tab PO Q12H PRN PRN Reason: PAIN SCALE 1 TO 10 Pantoprazole Sodium (Protonix) 20 mg PO DAILY [facility] Last Admin: 06/14/18 08:33 Dose: 20 mg Polyethylene Glycol (Miralax) 17 gm PO BID [facility] Last Admin: 06/14/18 08:31 Dose: 17 gm Potassium Phosphate (K-Phos Original) 500 mg PO BID [facility] Last Admin: 06/14/18 08:32 Dose: 500 mg Senna/Docusate Sodium (Shaunna-Colace) 1 tab PO BID [facility] Last Admin: 06/14/18 08:32 Dose: 1 tab Sodium Chloride (Ns Flush) 2 ml IV.FLUSH BID [facility] Last Admin: 06/14/18 08:33 Dose: Not Given Sodium Chloride (Ns Flush) 2 ml IV.FLUSH PRN PRN PRN Reason: FLUSH AFTER USING IV ACCESS Vitamin D (Vitamin D3) 5,000 unit PO DAILY [facility] Last Admin: 06/14/18 14:06 Dose: Not Given Exam Physical Examination Vital Signs / I&O: Vital Signs 06/13/18 19:00 06/13/18 19:56 06/13/18 20:00 Temperature Pulse Rate 66 Respiratory Rate 20 Blood Pressure Pulse Oximetry 92 L 93 L 98 06/13/18 22:07 06/13/18 23:40 06/14/18 00:00 Temperature 98.3 F Pulse Rate 62 Respiratory Rate 18 14 Blood Pressure 134/72 Pulse Oximetry 96 97 06/14/18 00:59 06/14/18 05:06 06/14/18 11:30 Temperature 97.7 F 98.1 F 97.6 F Pulse Rate 71 66 89 Respiratory Rate 18 18 20 Blood Pressure 138/63 119/66 110/71 Pulse Oximetry 100 98 97 06/14/18 16:05 Temperature 98.5 F Pulse Rate 73 Respiratory Rate 20 Blood Pressure 127/60 Pulse Oximetry 97 Intake & Output 06/13/18 06/14/18 06/14/18 18:59 06:59 18:59 Intake Total 423 / 423 143 / 143 Output Total 600 / 600 500 / 500 Balance -177 / -177 -500 / -500 143 / 143 Weight 76.4 kg Intake: IV 143 / 143 143 / 143 NS Inj 1,000 ML @ 70 mls/hr IV. 143 / 143 143 / 143 CONT .[id number] [facility] Rx#:[id number] Oral 280 / 280 Output: Urine 500 / 500 Urine Amount (Catheter) 600 / 600 Condom 600 / 600 Intake & Output 06/12/18 06/13/18 06/14/18 06/15/18 06:59 06:59 06:59 06:59 Intake Total 500 / 500 1956 423 / 423 143 / 143 Output Total 500 / 500 800 / 800 1100 / 1100 Balance 0 / 0 1157 / 1157 -677 / -677 143 / 143 Weight 77.1 kg 76.4 kg 76.4 kg General: No acute distress and Other (Awake and alert; daughter is at bedside; patient does not appear to be in any pain or discomfort and no shortness of breath is noted) Respiratory: Lungs CTA, BS equal and Symmetrical expansion Gastrointestinal: Positive bowel sounds, Non-distended and Non-tender Date of Last Bowel Movement: 06/10/18 Cardiovascular: Normal rate and Regular rhythm Skin: No rash Musculoskeletal: ROM (Within functional limits) and Swelling (None in distal lower extremities) Psychiatric: Cooperative and Appropriate mood & affect Neurologic Orientation: unable to assess: Self, Place, Time and Situation Neurologic: Pupils (PERRLA), EOM (Tracks right and left), Facial symmetry ( Right facial droop), Speech (Expressive and receptive aphasia) and Other ( Patient is able to follow approximately 50% of simple gestured commands) Motor: Right Upper Extremity (0/5 and tone is flaccid), Left Upper Extremity (5/ 5 grossly), Right Lower Extremity (4/5) and Left Lower Extremity DTRs: Abnormal (1+ right upper extremity; 2+ right lower extremity) Babinski: Positive (Right) Clonus: Negative Results Labs CBC & Chem 7: 06/16/18 08:43 06/16/18 08:43 Imaging Laboratory Results WBC 6.8 th/mm3 (4.0-11.0) 06/16/18 08:43 RBC 4.89 mil/mm3 (4.50-5.90) 06/16/18 08:43 Hgb 15.4 gm/dL (13.0-17.0) 06/16/18 08:43 POC Hgb (Calc) 15.3 g/dL (13.0-17.0) 06/11/18 08:30 Hct 44.6 % (39.0-51.0) 06/16/18 08:43 POC Hct 45.0 % (39-51.0) 06/11/18 08:30 MCV 91.3 fL (80.0-100.0) 06/16/18 08:43 MCH 31.6 pg (27.0-34.0) 06/16/18 08:43 MCHC 34.6 % (32.0-36.0) 06/16/18 08:43 RDW 13.1 % (11.6-17.2) 06/16/18 08:43 Plt Count 202 th/mm3 (150-450) 06/16/18 08:43 MPV 8.9 fL (7.0-11.0) 06/16/18 08:43 Neut % (Auto) 76.7 % (16.0-70.0) H 06/16/18 08:43 Lymph % (Auto) 10.3 % (9.0-44.0) 06/16/18 08:43 [place] % (Auto) 11.2 % (0.0-8.0) H 06/16/18 08:43 Eos % (Auto) 1.4 % (0.0-4.0) 06/16/18 08:43 Baso % (Auto) 0.4 % (0.0-2.0) 06/16/18 08:43 Neut # (Auto) 5.2 th/mm3 (1.8-7.7) 06/16/18 08:43 Lymph # (Auto) 0.7 th/mm3 (1.0-4.8) L 06/16/18 08:43 [facility] # (Auto) 0.8 th/mm3 (0.0-0.9) 06/16/18 08:43 Eos # (Auto) 0.1 th/mm3 (0.0-0.4) 06/16/18 08:43 Baso # (Auto) 0.0 th/mm3 (0.0-0.2) 06/16/18 08:43 WBC Differential . 06/16/18 08:43 Differential Comment Auto diff final 06/16/18 08:43 PT 9.8 sec (9.8-11.6) 06/11/18 08:30 INR 1.0 Ratio 06/11/18 08:30 APTT 33.5 sec (23.4-31.7) H 06/11/18 08:30 Fibrinogen 439 mg/dL (227-377) H 06/11/18 08:30 Puncture Site Right radial 06/15/18 18:10 Patient Temperature 98.6 06/15/18 18:10 O2 Saturation 91 % (90-100) 06/15/18 18:10 ABG pH 7.47 (7.380-7.420) H 06/15/18 18:10 ABG pCO2 28 mmHg (38-42) L 06/15/18 18:10 ABG pO2 66 mmHg (61-120) 06/15/18 18:10 ABG HCO3 20 mmol/L (22-26) L 06/15/18 18:10 ABG O2 Content 17.8 Vol % (12.0-20.0) 06/15/18 18:10 ABG Base Excess -2.9 mmol/L (-2-2) L 06/15/18 18:10 ABG Methemoglobin 1.3 % (0-2) 06/15/18 18:10 Wei Test Present 06/15/18 18:10 Hemoglobin 13.9 G/DL (12.0-16.0) 06/15/18 18:10 Carboxyhemoglobin 1.3 % (0-4) 06/15/18 18:10 Inspired O2 21 % 06/15/18 18:10 Critical Value No 06/15/18 18:10 POC Sodium 143 mmol/L (137-144) 06/11/18 08:30 Sodium 140 meq/L (136-145) 06/16/18 08:43 POC Potassium 4.0 mmol/L (3.6-5.0) 06/11/18 08:30 Potassium 3.7 meq/L (3.5-5.1) 06/16/18 08:43 POC Chloride 110 mmol/L (102-111) 06/11/18 08:30 Chloride 108 meq/L (98-107) H 06/16/18 08:43 Carbon Dioxide 23.0 meq/L (21.0-32.0) 06/16/18 08:43 Anion Gap 9 meq/L (5-15) 06/16/18 08:43 POC BUN 15 mg/dL (5-21) 06/11/18 08:30 BUN 8 mg/dL (7-18) 06/16/18 08:43 Creatinine 0.77 mg/dL (0.60-1.30) 06/16/18 08:43 POC Creatinine 1.1 mg/dL (0.6-1.3) 06/11/18 08:30 Estimated GFR Greater than 89 mL/min (>89) 06/16/18 08:43 POC Glucose 76 mg/dl (68-110) 06/16/18 11:13 Random Glucose 68 mg/dL (74-106) L 06/16/18 08:43 Hemoglobin A1c 5.7 % (4.3-6.0) 06/11/18 08:30 Calcium 8.5 mg/dL (8.5-10.1) 06/16/18 08:43 Phosphorus 2.6 mg/dL (2.5-4.9) 06/16/18 08:43 Magnesium 2.2 mg/dL (1.5-2.5) 06/16/18 08:43 Total Bilirubin 0.8 mg/dL (0.2-1.0) 06/15/18 19:29 AST 16 U/L (15-37) 06/15/18 19:29 ALT 18 U/L (12-78) 06/15/18 19:29 Alkaline Phosphatase 58 U/L (45-117) 06/15/18 19:29 Total Creatine Kinase 240 U/L (39-308) 06/16/18 08:43 CK-MB (CK-2) 10.8 ng/mL (0.5-3.6) H 06/11/18 08:30 CK-MB (CK-2) % 2.5 % (0.0-4.0) 06/11/18 08:30 Troponin I Less than 0.02 ng/mL (0.02-0.05) L 06/11/18 08:30 Total Protein 5.9 g/dL (6.4-8.2) L 06/15/18 19:29 Albumin 2.8 g/dL (3.4-5.0) L 06/15/18 19:29 Triglycerides 184 mg/dL (42-150) H 06/11/18 08:30 Cholesterol 148 mg/dL (120-200) 06/11/18 08:30 LDL Cholesterol, Calc 71 mg/dL (0-99) 06/11/18 08:30 HDL Cholesterol 39.8 mg/dL (40.0-60.0) L 06/11/18 08:30 Cholesterol/HDL Ratio 3.71 Ratio 06/11/18 08:30 Urine Color Dark-yellow (Yellw/Straw) H 06/15/18 21:00 Urine Clarity Clear (Clear) 06/15/18 21:00 Urine pH 5.0 (5.0-8.5) 06/15/18 21:00 Ur Specific [place] 1.023 (1.002-1.035) 06/15/18 21:00 Urine Protein Negative mg/dL (Neg-Trace) 06/15/18 21:00 Urine Glucose (UA) Negative mg/dL (Negative) 06/15/18 21:00 Urine Ketones 20 mg/dL (Negative) 06/15/18 21:00 Urine Occult Blood Negative (Negative) 06/15/18 21:00 Urine Nitrate Negative (Negative) 06/15/18 21:00 Urine Bilirubin Negative (Negative) 06/15/18 21:00 Urine Urobilinogen Less than 2 mg/dL (Less than 2) 06/15/18 21:00 Ur Leukocyte Esterase Negative (Negative) 06/15/18 21:00 Urine RBC 1 /hpf (0-3) 06/11/18 09:18 Urine WBC 3 /hpf (0-5) 06/15/18 21:00 Ur Squamous Epith Cells 2 /hpf (0-5) 06/11/18 09:18 Urine Bacteria Rare /hpf (None) H 06/11/18 09:18 Urine Mucus Few /lpf (Occasional) H 06/15/18 21:00 Micro UA Comment Cath-culture ind 06/11/18 09:18 Ur Microscopic Review Not Reportable 06/15/18 21:00 Urine Culture Comments Cath-cult indicated 06/11/18 09:18 Nasal Screen MRSA (PCR) Not detected (Negative) 06/11/18 12:10 Urine Opiates Screen Neg (Neg) 06/11/18 09:18 Ur Barbiturates Screen Neg (Neg) 06/11/18 09:18 Ur Amphetamines Screen Neg (Neg) 06/11/18 09:18 U Benzodiazepines Scrn Neg (Neg) 06/11/18 09:18 Urine Cocaine Screen Neg (Neg) 06/11/18 09:18 U Cannabinoids Screen Neg (Neg) 06/11/18 09:18 Blood Type A Positive 06/11/18 08:30 Blood Type Recheck Required 06/11/18 08:30 Antibody Screen Negative 06/11/18 08:30 Impressions Cerebral Angiography 06/11/18 00:00 CONCLUSION: 1. Acute occlusion on chronic critical stenosis of the left internal carotid at its origin. The patient is not a candidate for embolectomy. Head CTA 06/11/18 08:28 CONCLUSION: 1. Embolic occlusion on the left. CT suggests an older stroke then suggested by history. Report was called by Dr. Ring at 0905 AM. Neck CTA 06/11/18 08:28 CONCLUSION: 1. 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 Ring at [address] CAD 06/11/18 08:29 CONCLUSION: Physiological brain perfusion parameters with RAPID analysis as above. The decision for consideration of therapy is multi factorial and multi disciplinary relying on subjective and objective clinical data. This data is not construed or intended to be the sole determinant of treatment eligibility. . . Assessment and Plan (1) Acute embolic stroke: Status: Acute Code(s): I63.9 - Cerebral infarction, unspecified (2) Impaired mobility and activities of daily living: Status: Acute Code(s): Z74.09 - Other reduced mobility (3) Dysphagia: Status: Acute Code(s): R13.10 - Dysphagia, unspecified (4) Aphasia: Status: Acute Code(s): R47.01 - Aphasia (5) Hemiplegia, dominant side: Status: Acute Code(s): G81.90 - Hemiplegia, unspecified affecting unspecified side (6) Dyslipidemia: Status: Acute Code(s): E78.5 - Hyperlipidemia, unspecified Plan Assessment: 1. Left MCA CVA with attempted interventional clot retrieval 2. Right hemiparesis 3. Aphasia 4. Dysphagia 5. Hyperlipidemia 6. COPD 7. Impaired mobility and ADLs Recommendations: 1. Physical therapy is mobilizing and patient is now hand-held assist for transfers and gait 500 feet. Continue to mobilize. Continue supervision for fall prevention 2. Speech therapy is addressing swallow and patient is tolerating pured diet with honey thick liquids. Upgrade as tolerated per recommendations. Aphasia is being addressed. Patient appears to be following gestured commands better than verbal commands. 3. Occupational Therapy is addressing ADLs and patient is dependent 4. Patient will benefit from ongoing inpatient rehabilitation. Prior to admission he was independent with all mobility and ADLs and living alone independently. His son is available to assist him at discharge. Case management is addressing discharge planning 5. Will follow while hospitalized and as appropriate at discharge Thank you for this consult
[2018-06-15] MEDS: Sod Chloride 0.9% Inj 1,000 ML IV.CONT SCH ×4 (01:12→18:21)
[2018-06-15] MEDS: Insulin NovoLIN Regular Correctional Sugar Inj SQ SCH ×4 (01:13→18:06)
[2018-06-15 08:05] LABS: Baso % (Auto) 0.4 % (0.0-2.0); Eos # (Auto) 0.1 th/mm3 (0.0-0.4); Eos % (Auto) 1.6 % (0.0-4.0); Hematocrit 41.6 % (39.0-51.0); Mean Corpuscular HGB Conc 33.8 % (32.0-36.0); Mean Corpuscular Hemoglobin 31.1 pg (27.0-34.0); Mean Corpuscular Volume 92.2 fL (80.0-100.0); Mean Platelet Volume 8.3 fL (7.0-11.0); Mono # (Auto) 0.6 th/mm3 (0.0-0.9); Mono % (Auto) 7.7 % (0.0-8.0); Neut # (Auto) 5.7 th/mm3 (1.8-7.7); Neut % (Auto) 76.3 % (16.0-70.0); Platelet Count 201 th/mm3 (150-450); Red Blood Count 4.51 mil/mm3 (4.50-5.90); Red Cell Distribution Width 13.1 % (11.6-17.2); White Blood Count 7.4 th/mm3 (4.0-11.0)
[2018-06-15] MEDS: Chlorhexidine Gluconate 2% 1 Pack (2 Cloths) TOPICAL SCH (08:24)
[2018-06-15] MEDS: Senna/Docusate Sodium 8.6/50 MG Tablet PO SCH ×2 (08:24→22:02)
[2018-06-15] MEDS: Polyethylene Glycol 3350 17 GM Packet PO SCH ×2 (08:24→22:01)
[2018-06-15 08:34] LABS: Anion Gap 9 meq/L (5-15); Blood Urea Nitrogen 9 mg/dL (7-18); Calcium 7.7 mg/dL (8.5-10.1); Carbon Dioxide 22.8 meq/L (21.0-32.0); Chloride 111 meq/L (98-107); Glomerular Filtration Rate Greater Than 89 mL/min (>89); Glucose,Random 77 mg/dL (74-106); Potassium 3.7 meq/L (3.5-5.1); Sodium 143 meq/L (136-145)
[2018-06-15 08:37] LABS: Phosphorus 2.8 mg/dL (2.5-4.9)
[2018-06-15] MEDS: Pantoprazole Sodium 20 MG DR Tablet PO SCH (09:17)
[2018-06-15] MEDS: Fenofibrate 145 MG Tablet PO SCH (09:17)
[2018-06-15] MEDS: Potassium Phosphate 500 MG Soluble Tablet PO SCH ×3 (09:17→22:01)
[2018-06-15] MEDS: Allopurinol 100 MG Tablet PO SCH (09:17)
[2018-06-15] MEDS: Sodium Chloride 0.9% 2 ML Flush BID IV.FLUSH SCH ×2 (09:18→22:02)
--- NOTE | 2018-06-15 11:48 | P.PNIM ---
Subjective Interval history: Follow-up CVA. Patient has no complaints seems to be more responsive seen with daughter. Physical Exam Vital signs: Vital Signs 06/14/18 16:05 06/14/18 20:00 06/15/18 00:00 Temperature 98.5 F 98.0 F 99.2 F Pulse Rate 73 69 68 Respiratory Rate 20 20 16 Blood Pressure 127/60 139/65 128/63 Pulse Oximetry 97 94 L 96 06/15/18 04:00 06/15/18 05:00 06/15/18 08:00 Temperature 100.5 F H 98.4 F Pulse Rate 65 67 Respiratory Rate 20 16 20 Blood Pressure 131/63 131/62 Pulse Oximetry 97 96 06/15/18 11:20 Temperature 97.6 F Pulse Rate 83 Respiratory Rate 20 Blood Pressure 98/59 L Pulse Oximetry 95 Intake & Output 06/14/18 06/15/18 06/15/18 18:59 06:59 18:59 Intake Total 143 / 143 Balance 143 / 143 Weight 77.8 kg Intake: IV 143 / 143 NS Inj 1,000 ML @ 70 mls/hr IV. 143 / 143 CONT .[id number] [facility] Rx#:[id number] Other: # Incontinent Voids 1 Date of Last Bowel Movement 06/10/18 # Bowel Movements 5 # Incontinent Bowel Movements 5 Narrative: GENERAL: Middle-age male, in no distress CHEST: Equal chest rise. Room air. CARDIOVASCULAR: Normal rate, regular rhythm. Sinus by telemetry. ABDOMEN: Soft, nontender, nondistended. No guarding. MUSCULOSKELETAL: Pulses 2+. No peripheral edema. NEUROLOGICAL: RASS 0. The Patient is awake and alert. Patient has expressive and receptive aphasia. Intermittently follow basic commands. He does move all 4 extremities spontaneously. Right upper extremity 3 out of 5 power. All other extremities 5 out of 5. Unable to determine his sensation. Gait not assessed. Urinary Catheter Management Straight: Cath placed during this visit: yes, but has since been removed by the nurse Reason for continuing: Not indwelling catheter Insertion date: 06/11/18 Insertion time: 09:15 Removal date: 06/11/18 Removal time: 09:16 Condom: Cath placed during this visit: no Results Labs CBC & Chem 7: 06/15/18 07:28 06/15/18 07:28 Assessment and Plan Plan This is a 68-year-old male with acute left M1 MCA CVA and left ICA occlusion. Admit to ICU. Given the suspected large volume infarct, would be very high risk for hemorrhagic conversion. Will allow permissive hypertension, but would target his blood pressure under 180 to mitigate risks of hemorrhagic conversion. Acute left embolic M1 MCA CVA with left ICA occlusion, Acute encephalopathy and Dense receptive and expressive aphasia. Stable Hypertensive Emergency. Improved Frequent neurochecks. Pureed with honey thick MRI brain: large area of infarct in the left anterior sylvian region extending to the head of the caudate involving the anterior limb of the internal capsule Lipids. Statin based on lipid profile, atorvastatin started (patient on Crestor) A1c 5.7 2D echo, an estimated ejection fraction in the range of 55-60%. 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 Risk factor modification Advance diet per speech recommendations SCD and early OOB for DVT proph code Status: Full Progress Note: Quality VTE Deep Vein Thrombosis/Pulmonary Embolism Present on Admission: No
--- NOTE | 2018-06-15 16:13 | CT ---
EXAM DATE: 06/15/2018 3:50 PM EST AGE/SEX: 68 years / Male INDICATIONS: Yuly, altered mental status. CLINICAL DATA: This is the patient's initial encounter. Patient reports that signs and symptoms have been present for 1 day and indicates a pain score of Nonresponsive. MEDICAL/SURGICAL HISTORY: Rheumatoid arthritis. Stroke. Cardiovascular disease. . Back surgery. RADIATION DOSE: 48.10 CTDI (mGy) COMPARISON: [facility] [place]/O [place]AST, 06/13/2018. . TECHNIQUE: CT of the head without contrast. Using automated exposure control and adjustment of the mA and/or kV according to patient size, radiation dose was kept as low as reasonably achievable to ob tain optimal diagnostic quality images. DICOM format image data is available electronically for revi ew and comparison. FINDINGS: Cerebrum: Evolving large infarct in the left anterior sylvian region extending from the cortical cesar face of the brain to the head of the caudate with localized mass effect. There is no parenchymal hemo rrhage. Right hemisphere is unremarkable Posterior fossa appears normal There are no extra-axial fluid collections appreciated. CONCLUSION: 1. Evolving large infarct left anterior sylvian region without hemorrhage or significant mass effect . . . Electronically signed by: Ignacio Ring MD Board Certified Radiologist 06/15/2018 3:54 PM EST
[2018-06-15] MEDS ORDERED: levETIRAcetam 1000mg/100mL Inj 100 ML IV.SIG ONE (17:00)
--- NOTE | 2018-06-15 17:40 | MR ---
EXAM DATE: 06/15/2018 5:22 PM EST AGE/SEX: 68 years / Male INDICATIONS: Altered mental status. Failed left embolectomy surgery today. CLINICAL DATA: This is the patient's initial encounter. Patient reports that signs and symptoms have been present for 1 day and indicates a pain score of Nonresponsive. MEDICAL/SURGICAL HISTORY: Hypertension. Hypercholesterolemia. Rheumatoid arthritis. . Back sx . [place] [facility] [place] [facility] [place]/11/[place]. . TECHNIQUE: Multiplanar, multisequence examination of the brain was performed without contrast. FINDINGS: There is a large restricted diffusion in the left frontal region with mass effect on the frontal horn of left lateral ventricle characteristic of an evolving infarct with cytotoxic edema. There is corre sponding increased FLAIR signal in this region. There is mild increased FLAIR signal in the periventr icular white matter most likely related to chronic microvascular ischemic disease. There is no eviden ce of hemorrhage. No masses are seen. CONCLUSION: 1. Left MCA infarct noted. There is mild mass effect on the frontal horn of the left lateral ventric le. 1 mm left to right shift. Electronically signed by: Jim Nina MD Board Certified Radiologist 06/15/2018 5:27 PM EST
--- NOTE | 2018-06-15 17:50 | P.PNNEU ---
Subjective Subjective Comments: pt was found to have depressed mental status and was not responsive. Nurse noted right gaze . no sz noted Active Medications: Active Medications Acetaminophen (Tylenol) 650 mg PO Q6H PRN PRN Reason: TEMPERATURE > 101 F Albuterol (Duoneb Neb (Prn)) 1 ampul NEB Q2HR NEB PRN PRN Reason: WHEEZING Allopurinol (Zyloprim) 100 mg PO DAILY [facility] Last Admin: 06/15/18 09:17 Dose: 100 mg Aspirin (Aspirin Supp) 300 mg RECTAL DAILY [facility] Atorvastatin Calcium (Lipitor) 80 mg PO DAILY [facility] Last Admin: 06/15/18 09:17 Dose: 80 mg Bisacodyl (Dulcolax Supp) 10 mg RECTAL DAILY PRN PRN Reason: if no BM in last 24h Chlorhexidine Gluconate (Chlorhexidine 2% Cloth) 3 pack TOPICAL DAILY@0400 DORIS Stop: 06/17/18 03:59 Last Admin: 06/15/18 08:24 Dose: Not Given Chlorhexidine Gluconate (Chlorhexidine 2% Cloth) 3 pack TOPICAL DAILY@0400 PRN PRN Reason: Extra cloth needed Stop: 06/17/18 03:59 Clonidine HCl (Catapres) 0.1 mg PO Q6H PRN PRN Reason: SEE LABEL COMMENTS Dextroamphetamine Sulfate (Dextrostat) 10 mg PO BID [facility] Last Admin: 06/15/18 09:17 Dose: 10 mg Dextrose (D50w Vial) 50 ml IV.PUSH UNSCH PRN PRN Reason: PER HYPOGLYCEMIA PROTOCOL Enalaprilat (Vasotec Inj) 1.25 mg IV.PUSH Q6H PRN PRN Reason: SEE LABEL COMMENTS Fenofibrate (Tricor) 145 mg PO DAILY [facility] Last Admin: 06/15/18 09:17 Dose: 145 mg Glucagon (Glucagon Inj) 1 mg OTHER PRN PRN PRN Reason: for Hypoglycemia Protocol Sodium Chloride (Ns Inj) 1,000 mls @ 70 mls/hr IV.CONT .[id number] [facility] Last Admin: 06/15/18 13:31 Dose: Not Given Levetiracetam 500 mg/ Sodium (Chloride) 105 mls @ 400 mls/hr IV.SIG Q6H [facility] Insulin Human Regular (Novolin R Correctional Sugar Inj) 0 units SQ Q6HR [facility]; Protocol Last Admin: 06/15/18 12:16 Dose: Not Given Lactulose (Lactulose Liq) 30 ml PO BID [facility] Last Admin: 06/15/18 08:24 Dose: Not Given Ondansetron HCl (Zofran Inj) 4 mg IV.PUSH Q6H PRN PRN Reason: NAUSEA OR VOMITING Oxycodone/Acetaminophen (Percocet 5/325 Mg) 1 tab PO Q12H PRN PRN Reason: PAIN SCALE 1 TO 10 Pantoprazole Sodium (Protonix) 20 mg PO DAILY [facility] Last Admin: 06/15/18 09:17 Dose: 20 mg Polyethylene Glycol (Miralax) 17 gm PO BID [facility] Last Admin: 06/15/18 08:24 Dose: Not Given Potassium Phosphate (K-Phos Original) 500 mg PO BID [facility] Last Admin: 06/15/18 09:17 Dose: 500 mg Senna/Docusate Sodium (Shaunna-Colace) 1 tab PO BID [facility] Last Admin: 06/15/18 08:24 Dose: Not Given Sodium Chloride (Ns Flush) 2 ml IV.FLUSH BID [facility] Last Admin: 06/15/18 09:18 Dose: Not Given Sodium Chloride (Ns Flush) 2 ml IV.FLUSH PRN PRN PRN Reason: FLUSH AFTER USING IV ACCESS Vitamin D (Vitamin D3) 5,000 unit PO DAILY [facility] Last Admin: 06/15/18 09:17 Dose: 5,000 unit Allergies/Adverse Reactions: Allergies Allergy/AdvReac Type Severity Reaction Status Date / Time penicillin G Allergy Severe SWELLING Verified 06/11/18 08:40 Physical Exam Vital signs: Vital Signs 06/14/18 20:00 06/15/18 00:00 06/15/18 04:00 Temperature 98.0 F 99.2 F 100.5 F H Pulse Rate 69 68 65 Respiratory Rate 20 16 20 Blood Pressure 139/65 128/63 131/63 Pulse Oximetry 94 L 96 97 06/15/18 05:00 06/15/18 08:00 06/15/18 11:20 Temperature 98.4 F 97.6 F Pulse Rate 67 83 Respiratory Rate 16 20 20 Blood Pressure 131/62 98/59 L Pulse Oximetry 96 95 06/15/18 12:46 06/15/18 13:46 06/15/18 17:00 Temperature 98.8 F Pulse Rate 97 H 80 77 Respiratory Rate 18 16 16 Blood Pressure 126/72 118/60 123/57 L Pulse Oximetry 97 Intake & Output 06/14/18 06/15/18 06/15/18 18:59 06:59 18:59 Intake Total 143 / 143 Balance 143 / 143 Weight 77.8 kg Intake: IV 143 / 143 NS Inj 1,000 ML @ 70 mls/hr IV. 143 / 143 CONT .[id number] [facility] Rx#:[id number] Other: # Incontinent Voids 1 Date of Last Bowel Movement 06/10/18 # Bowel Movements 5 # Incontinent Bowel Movements 5 - Routine Neurological Exam alert,follow commands. no speech ( exp aphasia) EOM intact pupils 2 mm symmetric and reactive MOTOR 2/5 RUE and RLE. 5/5 LUE an LLE - Urinary Catheter Management Straight Cath placed during this visit: yes, but has since been removed by the nurse Reason for continuing: Not indwelling catheter Insertion date: 06/11/18 Insertion time: 09:15 Removal date: 06/11/18 Removal time: 09:16 Condom Cath placed during this visit: no Objective Radiology Results: MRI brain--evolvong left mca stroke with no new areas of infarction. No hemorrhage. mild mass effect Laboratory Results - last 24 hr 06/15/18 06/15/18 06/15/18 07:28 07:28 15:31 WBC 7.4 RBC 4.51 Hgb 14.0 Hct 41.6 MCV 92.2 MCH 31.1 MCHC 33.8 RDW 13.1 Plt Count 201 MPV 8.3 Neut % (Auto) 76.3 H Lymph % (Auto) 14.0 [place] % (Auto) 7.7 Eos % (Auto) 1.6 Baso % (Auto) 0.4 Neut # (Auto) 5.7 Lymph # (Auto) 1.0 [place] # (Auto) 0.6 Eos # (Auto) 0.1 Baso # (Auto) 0.0 WBC Differential . Differential Comment Auto diff final Sodium 143 Potassium 3.7 Chloride 111 H Carbon Dioxide 22.8 Anion Gap 9 BUN 9 Creatinine 0.80 Estimated GFR Greater than 89 POC Glucose 85 Random Glucose 77 Calcium 7.7 L Phosphorus 2.8 Magnesium 2.0 Review/Management - Review/Management Plan: left mca stroke. left carotid occlusion Change today may have been a focal sz. Adán started monitor in icu . recheck CT in am to r/o increase mass effect
[2018-06-15] MEDS: Aspirin 300 MG Supp RECTAL SCH (18:06)
[2018-06-15 18:22] LABS: ABG Base Excess -2.9 mmol/L (-2-2); ABG PCO2 28 mmHg (38-42); ABG PO2 66 mmHg (61-120)
[2018-06-15 20:15] LABS: Baso % (Auto) 0.3 % (0.0-2.0); Eos # (Auto) 0.1 th/mm3 (0.0-0.4); Hemoglobin 14.2 gm/dL (13.0-17.0); Lymph # (Auto) 0.6 th/mm3 (1.0-4.8); Lymph % (Auto) 9.3 % (9.0-44.0); Mean Corpuscular HGB Conc 33.8 % (32.0-36.0); Mean Corpuscular Hemoglobin 30.9 pg (27.0-34.0); Mean Corpuscular Volume 91.4 fL (80.0-100.0); Mean Platelet Volume 8.4 fL (7.0-11.0); Mono # (Auto) 0.5 th/mm3 (0.0-0.9); Mono % (Auto) 7.4 % (0.0-8.0); Neut # (Auto) 5.6 th/mm3 (1.8-7.7); Platelet Count 202 th/mm3 (150-450); Red Blood Count 4.59 mil/mm3 (4.50-5.90); Red Cell Distribution Width 13.1 % (11.6-17.2); White Blood Count 6.8 th/mm3 (4.0-11.0)
--- NOTE | 2018-06-15 20:44 | MG ---
cc: Charli Watson MD, PhD TEST NUMBER: [id number] TECHNIQUE: A 17-channel EEG. DESCRIPTION: Background rhythm shows generalized slowing in the theta range. There is more slowing over the left hemisphere than over the right hemisphere and this is consistent with the patient's known history of stroke. No epileptiform discharges are seen. Photic resulted in a modest driving response. INTERPRETATION: Abnormal study on the basis of generalized slowing worse over the left hemisphere, but no epileptiform discharges. Charli Watson MD, PhD ARMANI/nini , 08:15 PM , 08:20 PM
[2018-06-15 20:45] LABS: Albumin 2.8 g/dL (3.4-5.0); Anion Gap 13 meq/L (5-15); Aspartate Aminotransferase 16 U/L (15-37); Blood Urea Nitrogen 8 mg/dL (7-18); Calcium 8.2 mg/dL (8.5-10.1); Carbon Dioxide 20.8 meq/L (21.0-32.0); Chloride 108 meq/L (98-107); Glomerular Filtration Rate Greater Than 89 mL/min (>89); Glucose,Random 81 mg/dL (74-106); Magnesium 1.9 mg/dL (1.5-2.5); Potassium 3.6 meq/L (3.5-5.1); Sodium 142 meq/L (136-145)
[2018-06-15] MEDS ORDERED: Acetaminophen 650 MG Supp RECTAL ONE (20:45)
[2018-06-15 20:46] LABS: Alanine Aminotransferase 18 U/L (12-78); Phosphorus 2.4 mg/dL (2.5-4.9)
[2018-06-15 20:48] LABS: Alkaline Phosphatase 58 U/L (45-117); Total Protein 5.9 g/dL (6.4-8.2)
--- NOTE | 2018-06-15 21:38 | XR ---
EXAM DATE: 06/15/2018 9:03 PM EST AGE/SEX: 68 years / Male INDICATIONS: Fever. CLINICAL DATA: This is the patient's initial encounter. Patient reports that signs and symptoms have been present for 1 day and indicates a pain score of 0/10. MEDICAL/SURGICAL HISTORY: . Rheumatoid arthritis. Stroke. Cardiovascular disease. . Back surg sukhjinder. COMPARISON: No prior exams available for comparison. FINDINGS: The lungs are clear without infiltrate, nodule, or mass. There is no appreciable pleural e ffusion for technique. Heart and mediastinum are unremarkable. CONCLUSION: No acute cardiopulmonary disease. Electronically signed by: Bobby Hoffman MD Board Certified Radiologist 06/15/2018 9:05 PM EST
[2018-06-15 22:06] LABS: Baso % (Auto) 0.7 % (0.0-2.0); Eos # (Auto) 0.1 th/mm3 (0.0-0.4); Hematocrit 41.5 % (39.0-51.0); Lymph # (Auto) 0.8 th/mm3 (1.0-4.8); Lymph % (Auto) 11.5 % (9.0-44.0); Mean Corpuscular HGB Conc 33.8 % (32.0-36.0); Mean Corpuscular Hemoglobin 30.9 pg (27.0-34.0); Mean Corpuscular Volume 91.4 fL (80.0-100.0); Mean Platelet Volume 8.3 fL (7.0-11.0); Mono # (Auto) 0.5 th/mm3 (0.0-0.9); Mono % (Auto) 7.5 % (0.0-8.0); Neut # (Auto) 5.2 th/mm3 (1.8-7.7); Neut % (Auto) 79.3 % (16.0-70.0); Platelet Count 201 th/mm3 (150-450); Red Blood Count 4.54 mil/mm3 (4.50-5.90); Red Cell Distribution Width 13.2 % (11.6-17.2); White Blood Count 6.6 th/mm3 (4.0-11.0)
[2018-06-15 22:07] LABS: Bilirubin,Urine Negative (Negative); Clarity,Urine Clear (Clear); Glucose,Urine (UA) Negative (Negative); Leukocyte Esterase,Urine Negative (Negative); Mucus,Urine Few /lpf (Occasional); Nitrite,Urine Negative (Negative); Specific Gravity,Urine 1.023 (1.002-1.035)
[2018-06-15 22:09] LABS: Color,Urine Dark-Yellow (Yellw/Straw)
[2018-06-16] MEDS: Insulin NovoLIN Regular Correctional Sugar Inj SQ SCH ×4 (00:23→17:43)
[2018-06-16] MEDS: Sod Chloride 0.9% Inj 1,000 ML IV.CONT SCH (03:06)
[2018-06-16] MEDS: Chlorhexidine Gluconate 2% 1 Pack (2 Cloths) TOPICAL SCH (04:24)
[2018-06-16] MEDS: Aspirin 300 MG Supp RECTAL SCH (10:00)
[2018-06-16] MEDS: Potassium Phosphate 500 MG Soluble Tablet PO SCH ×4 (10:00→20:46)
[2018-06-16] MEDS: Polyethylene Glycol 3350 17 GM Packet PO SCH ×2 (10:01→20:46)
[2018-06-16] MEDS: Sodium Chloride 0.9% 2 ML Flush BID IV.FLUSH SCH ×2 (10:01→20:46)
[2018-06-16] MEDS: Senna/Docusate Sodium 8.6/50 MG Tablet PO SCH ×2 (10:02→20:47)
[2018-06-16] MEDS: Allopurinol 100 MG Tablet PO SCH (10:02)
[2018-06-16] MEDS: Pantoprazole Sodium 20 MG DR Tablet PO SCH (10:02)
[2018-06-16] MEDS: Fenofibrate 145 MG Tablet PO SCH (10:02)
[2018-06-16 10:23] LABS: Baso % (Auto) 0.4 % (0.0-2.0); Eos # (Auto) 0.1 th/mm3 (0.0-0.4); Eos % (Auto) 1.4 % (0.0-4.0); Hematocrit 44.6 % (39.0-51.0); Hemoglobin 15.4 gm/dL (13.0-17.0); Lymph # (Auto) 0.7 th/mm3 (1.0-4.8); Lymph % (Auto) 10.3 % (9.0-44.0); Mean Corpuscular HGB Conc 34.6 % (32.0-36.0); Mean Corpuscular Hemoglobin 31.6 pg (27.0-34.0); Mean Corpuscular Volume 91.3 fL (80.0-100.0); Mean Platelet Volume 8.9 fL (7.0-11.0); Mono # (Auto) 0.8 th/mm3 (0.0-0.9); Mono % (Auto) 11.2 % (0.0-8.0); Neut # (Auto) 5.2 th/mm3 (1.8-7.7); Neut % (Auto) 76.7 % (16.0-70.0); Platelet Count 202 th/mm3 (150-450); Red Blood Count 4.89 mil/mm3 (4.50-5.90); Red Cell Distribution Width 13.1 % (11.6-17.2); White Blood Count 6.8 th/mm3 (4.0-11.0)
--- NOTE | 2018-06-16 10:34 | CT ---
EXAM DATE: 06/16/2018 9:33 AM EST AGE/SEX: 68 years / Male INDICATIONS: Abnormal prior imaging. Hemiparesis. CLINICAL DATA: This is the patient's subsequent encounter. Patient reports that signs and symptoms h ave been present for 1 day and indicates a pain score of Nonresponsive. MEDICAL/SURGICAL HISTORY: Rheumatoid arthritis. Chronic obstructive pulmonary disease. None. RADIATION DOSE: 49.90 CTDI (mGy) COMPARISON: [facility] [place] HEAD W/O CONTRAST, 06/15/2018. . TECHNIQUE: CT of the head without contrast. Using automated exposure control and adjustment of the mA and/or kV according to patient size, radiation dose was kept as low as reasonably achievable to ob tain optimal diagnostic quality images. DICOM format image data is available electronically for revi ew and comparison. FINDINGS: The evolving left anterior sylvian infarct is stable in size and configuration. Again this does exten d into the head of the caudate involves both the anterior limb and genuine of the internal capsule. There still is no evidence for parenchymal hemorrhage There is some localized mass effect with very minimal effacement on the left lateral ventricle that h as increased slightly. There is no midline shift The right hemisphere is unremarkable Posterior fossa appears normal CONCLUSION: 1. Very slight increase in the localized mass effect on the left lateral ventricle 2. Still no evidence for hemorrhage. . . Electronically signed by: Ignacio Ring MD Board Certified Radiologist 06/16/2018 9:39 AM EST
[2018-06-16 10:50] LABS: Anion Gap 9 meq/L (5-15); Blood Urea Nitrogen 8 mg/dL (7-18); Calcium 8.5 mg/dL (8.5-10.1); Chloride 108 meq/L (98-107); Glomerular Filtration Rate Greater Than 89 mL/min (>89); Glucose,Random 68 mg/dL (74-106); Magnesium 2.2 mg/dL (1.5-2.5); Potassium 3.7 meq/L (3.5-5.1); Sodium 140 meq/L (136-145)
[2018-06-16 10:51] LABS: Phosphorus 2.6 mg/dL (2.5-4.9)
[2018-06-16 10:53] LABS: Creatine Kinase 240 U/L (39-308)
--- NOTE | 2018-06-16 11:49 | P.PNIM ---
Subjective Interval history: Follow-up encephalopathy. Today he is lethargic. 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 Physical Exam Vital signs: Vital Signs 06/15/18 12:46 06/15/18 13:46 06/15/18 17:00 Temperature 98.8 F Pulse Rate 97 H 80 77 Respiratory Rate 18 16 16 Blood Pressure 126/72 118/60 123/57 L Pulse Oximetry 97 06/15/18 18:00 06/15/18 20:00 06/15/18 20:34 Temperature 101.3 F H Pulse Rate 81 86 90 Respiratory Rate 18 28 H 21 Blood Pressure 121/91 H 115/62 115/62 Pulse Oximetry 100 96 96 06/15/18 21:33 06/15/18 22:46 06/16/18 00:00 Temperature 101.5 F H Pulse Rate 82 88 Respiratory Rate 33 H Blood Pressure 99/62 L Pulse Oximetry 93 L 93 L 06/16/18 01:00 06/16/18 01:12 06/16/18 02:13 Temperature 101.5 F H Pulse Rate 88 87 76 Respiratory Rate 25 H 24 Blood Pressure 94/50 L 94/50 L Pulse Oximetry 94 L 93 L 06/16/18 04:20 06/16/18 04:24 06/16/18 05:00 Temperature 98.2 F Pulse Rate 70 70 73 Respiratory Rate 20 30 H Blood Pressure 125/58 L 111/55 L Pulse Oximetry 98 97 06/16/18 06:00 Temperature Pulse Rate 73 Respiratory Rate Blood Pressure Pulse Oximetry Intake & Output 06/15/18 06/16/18 06/16/18 18:59 06:59 18:59 Intake Total 488 / 488 210 / 210 Output Total 0 / 0 Balance 488 / 488 210 / 210 Weight 76.2 kg Intake: IV 488 / 488 210 / 210 NS Inj 1,000 ML @ 70 mls/hr IV. 388 / 388 CONT .[id number] [facility] Rx#:[id number] Keppra 1000 mg/100 mL Premix 100 / 100 100 ML @ 400 mls/hr IV.SIG ONCE ONE Rx#:[id number] Keppra Inj 500 MG In NS Inj 100 210 / 210 ML @ 400 mls/hr IV.SIG Q6H [facility] Rx#:[id number] Output: Urine 0 / 0 Other: # Incontinent Voids 2 # Urine Diapers 2 Narrative: GENERAL: Middle-age male, in no distress CHEST: Equal chest rise. Room air. CARDIOVASCULAR: Normal rate, regular rhythm. Sinus by telemetry. ABDOMEN: Soft, nontender, nondistended. No guarding. MUSCULOSKELETAL: Pulses 2+. No peripheral edema. NEUROLOGICAL: He is lethargic not following commands no facial droop right upper extremity without movement. Right lower extremity with spontaneous movements but weak Urinary Catheter Management Straight: Cath placed during this visit: yes, but has since been removed by the nurse Reason for continuing: Not indwelling catheter Insertion date: 06/11/18 Insertion time: 09:15 Removal date: 06/11/18 Removal time: 09:16 Condom: Cath placed during this visit: no Results Labs CBC & Chem 7: 06/16/18 08:43 06/16/18 08:43 Labs: Microbiology 06/15/18 21:40 Blood - Peripheral Aerobic Blood Culture - Preliminary No growth in 1 day 06/15/18 21:40 Blood - Peripheral Anaerobic Blood Culture - Preliminary No growth in 1 day 06/15/18 21:45 Blood - Peripheral Aerobic Blood Culture - Preliminary No growth in 1 day 06/15/18 21:45 Blood - Peripheral Anaerobic Blood Culture - Preliminary No growth in 1 day Imaging Imaging: Impressions Chest X-Ray 06/15/18 00:00 CONCLUSION: No acute cardiopulmonary disease. Head CT 06/15/18 15:35 CONCLUSION: 1. Evolving large infarct left anterior sylvian region without hemorrhage or significant mass effect. . . Head MRI 06/15/18 16:02 CONCLUSION: 1. Left MCA infarct noted. There is mild mass effect on the frontal horn of the left lateral ventricle. 1 mm left to right shift. Head CT 06/16/18 09:00 CONCLUSION: 1. Very slight increase in the localized mass effect on the left lateral ventricle 2. Still no evidence for hemorrhage. . . Assessment and Plan Plan This is a 68-year-old male with acute left M1 MCA CVA and left ICA occlusion. Admit to ICU. Given the suspected large volume infarct, would be very high risk for hemorrhagic conversion. Will allow permissive hypertension, but would target his blood pressure under 180 to mitigate risks of hemorrhagic conversion. Acute left embolic M1 MCA CVA with left ICA occlusion, Acute encephalopathy and Dense receptive and expressive aphasia. Now with encephalopathy status post fall 06/15 suspect seizure versus medicine effect (Keppra) Hypertensive Emergency. Improved Frequent neurochecks. Pureed with honey thick Repeat MRI without significant change Repeat head CT with very slight increase in the mass-effect EEG with no epileptiform activity lipids. Statin based on lipid profile, atorvastatin started (patient on Crestor) A1c 5.7 2D echo, an estimated ejection fraction in the range of 55-60%. 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 Will alert neurology with altered mental status. We will add IV Decadron if ok with neuro Neurosurgery consult- no intervention needed at this time Vascular surgery consulted regarding left ICA occlusion, no surgical intervention. Risk factor modification Advance diet per speech recommendations. Switch to D5 with decreased oral intake and monitor for hypoglycemia Fever. Workup negative including chest x-ray and urinalysis. Follow-up blood cultures. Likely from atelectasis versus DIRECTOR OF INDIVIDUAL GIVING insult. We will continue to monitor SCD and early OOB for DVT proph code Status: Full Keep patient in ICU Progress Note: Quality VTE Deep Vein Thrombosis/Pulmonary Embolism Present on Admission: No
[2018-06-16] MEDS: KCL 20 mEq/D5W/NaCl 0.9% Inj 1,000 ML IV.CONT SCH (14:58)
--- NOTE | 2018-06-16 15:50 | P.PNNEU ---
Subjective Subjective Comments: Patient is seen with no family members at bed side, discussed with RN There was some decline in mental status with lethargy A repeat head CT scan revealed mild increase in size of the edema around L-MCA region Active Medications: Active Medications Acetaminophen (Tylenol) 650 mg PO Q6H PRN PRN Reason: TEMPERATURE > 101 F Albuterol (Duoneb Neb (Prn)) 1 ampul NEB Q2HR NEB PRN PRN Reason: WHEEZING Last Admin: 06/16/18 13:06 Dose: 1 ampul Albuterol (Albuterol Neb (Gloria)) 0.63 mg NEB Q6HR NEB GLORIA Allopurinol (Zyloprim) 100 mg PO DAILY [facility] Last Admin: 06/16/18 10:02 Dose: Not Given Aspirin (Aspirin Supp) 300 mg RECTAL DAILY [facility] Last Admin: 06/16/18 10:00 Dose: 300 mg Atorvastatin Calcium (Lipitor) 80 mg PO DAILY [facility] Last Admin: 06/16/18 10:01 Dose: Not Given Bisacodyl (Dulcolax Supp) 10 mg RECTAL DAILY PRN PRN Reason: if no BM in last 24h Chlorhexidine Gluconate (Chlorhexidine 2% Cloth) 3 pack TOPICAL DAILY@0400 GLORIA Stop: 06/17/18 03:59 Last Admin: 06/16/18 04:24 Dose: Not Given Chlorhexidine Gluconate (Chlorhexidine 2% Cloth) 3 pack TOPICAL DAILY@0400 PRN PRN Reason: Extra cloth needed Stop: 06/17/18 03:59 Clonidine HCl (Catapres) 0.1 mg PO Q6H PRN PRN Reason: SEE LABEL COMMENTS Dexamethasone Sodium Phosphate (Decadron Inj) 4 mg IV.PUSH Q6HR [facility] Dextroamphetamine Sulfate (Dextrostat) 10 mg PO BID [facility] Last Admin: 06/16/18 10:00 Dose: Not Given Dextrose (D50w Vial) 50 ml IV.PUSH UNSCH PRN PRN Reason: PER HYPOGLYCEMIA PROTOCOL Enalaprilat (Vasotec Inj) 1.25 mg IV.PUSH Q6H PRN PRN Reason: SEE LABEL COMMENTS Fenofibrate (Tricor) 145 mg PO DAILY [facility] Last Admin: 06/16/18 10:02 Dose: Not Given Glucagon (Glucagon Inj) 1 mg OTHER PRN PRN PRN Reason: for Hypoglycemia Protocol Levetiracetam 500 mg/ Sodium (Chloride) 105 mls @ 400 mls/hr IV.SIG Q6H [facility] Last Infusion: 06/16/18 12:00 Dose: Infused Potassium Chloride/Dextrose/Sod Cl (D5w/Ns + Kcl 20 Meq Inj) 1,000 mls @ 70 mls /hr IV.CONT .[id number] [facility] Last Admin: 06/16/18 14:58 Dose: 70 mls/hr Insulin Human Regular (Novolin R Correctional Sugar Inj) 0 units SQ Q6HR [facility]; Protocol Last Admin: 06/16/18 11:16 Dose: Not Given Lactulose (Lactulose Liq) 30 ml PO BID [facility] Last Admin: 06/16/18 10:00 Dose: Not Given Ondansetron HCl (Zofran Inj) 4 mg IV.PUSH Q6H PRN PRN Reason: NAUSEA OR VOMITING Oxycodone/Acetaminophen (Percocet 5/325 Mg) 1 tab PO Q12H PRN PRN Reason: PAIN SCALE 1 TO 10 Pantoprazole Sodium (Protonix) 20 mg PO DAILY [facility] Last Admin: 06/16/18 10:02 Dose: Not Given Polyethylene Glycol (Miralax) 17 gm PO BID [facility] Last Admin: 06/16/18 10:01 Dose: Not Given Potassium Phosphate (K-Phos Original) 500 mg PO BID [facility] Last Admin: 06/16/18 10:00 Dose: Not Given Potassium Phosphate (K-Phos Original) 500 mg PO BID [facility] Last Admin: 06/16/18 10:00 Dose: Not Given Senna/Docusate Sodium (Shaunna-Colace) 1 tab PO BID [facility] Last Admin: 06/16/18 10:02 Dose: Not Given Sodium Chloride (Ns Flush) 2 ml IV.FLUSH BID [facility] Last Admin: 06/16/18 10:01 Dose: 2 ml Sodium Chloride (Ns Flush) 2 ml IV.FLUSH PRN PRN PRN Reason: FLUSH AFTER USING IV ACCESS Vitamin D (Vitamin D3) 5,000 unit PO DAILY [facility] Last Admin: 06/16/18 10:02 Dose: Not Given Allergies/Adverse Reactions: Allergies Allergy/AdvReac Type Severity Reaction Status Date / Time penicillin G Allergy Severe SWELLING Verified 06/11/18 08:40 Physical Exam Vital signs: Vital Signs 06/15/18 17:00 06/15/18 18:00 06/15/18 20:00 Temperature 101.3 F H Pulse Rate 77 81 86 Respiratory Rate 16 18 28 H Blood Pressure 123/57 L 121/91 H 115/62 Pulse Oximetry 100 96 06/15/18 20:34 06/15/18 21:33 06/15/18 22:46 Temperature Pulse Rate 90 82 Respiratory Rate 21 Blood Pressure 115/62 Pulse Oximetry 96 93 L 06/16/18 00:00 06/16/18 01:00 06/16/18 01:12 Temperature 101.5 F H 101.5 F H Pulse Rate 88 88 87 Respiratory Rate 33 H 25 H 24 Blood Pressure 99/62 L 94/50 L 94/50 L Pulse Oximetry 93 L 94 L 93 L 06/16/18 02:13 06/16/18 04:20 06/16/18 04:24 Temperature 98.2 F Pulse Rate 76 70 70 Respiratory Rate 20 Blood Pressure 125/58 L Pulse Oximetry 98 06/16/18 05:00 06/16/18 06:00 06/16/18 07:00 Temperature Pulse Rate 73 76 78 Respiratory Rate 30 H 24 32 H Blood Pressure 111/55 L 123/51 L 116/73 Pulse Oximetry 97 96 99 06/16/18 08:00 06/16/18 09:00 06/16/18 10:00 Temperature Pulse Rate 72 73 77 Respiratory Rate 26 H 30 H 29 H Blood Pressure 115/68 126/59 L Pulse Oximetry 97 97 06/16/18 11:00 06/16/18 11:03 06/16/18 12:00 Temperature Pulse Rate 69 71 71 Respiratory Rate 24 24 20 Blood Pressure 131/65 Pulse Oximetry 97 96 100 06/16/18 13:00 06/16/18 13:06 06/16/18 13:07 Temperature Pulse Rate 68 70 70 Respiratory Rate 34 H 42 H 16 Blood Pressure 118/63 Pulse Oximetry 98 96 06/16/18 14:00 Temperature Pulse Rate 84 Respiratory Rate 28 H Blood Pressure 100/60 Pulse Oximetry 96 Intake & Output 06/15/18 06/16/18 06/16/18 18:59 06:59 18:59 Intake Total 488 / 488 210 / 210 1105 / 1105 Output Total 0 / 0 Balance 488 / 488 210 / 210 1105 / 1105 Weight 76.2 kg Intake: IV 488 / 488 210 / 210 1105 / 1105 NS Inj 1,000 ML @ 70 mls/hr IV. 388 / 388 1000 / 1000 CONT .[id number] [facility] Rx#:[id number] Keppra 1000 mg/100 mL Premix 100 / 100 100 ML @ 400 mls/hr IV.SIG ONCE ONE Rx#:[id number] Keppra Inj 500 MG In NS Inj 100 210 / 210 105 / 105 ML @ 400 mls/hr IV.SIG Q6H [facility] Rx#:[id number] Output: Urine 0 / 0 Other: # Incontinent Voids 2 # Urine Diapers 2 Date of Last Bowel Movement 06/10/18 Narrative: alert,follow commands. no speech ( exp aphasia) EOM intact pupils 2 mm symmetric and reactive MOTOR 2/5 RUE and RLE. 5/5 LUE an LLE - Urinary Catheter Management Straight Cath placed during this visit: yes, but has since been removed by the nurse Reason for continuing: Not indwelling catheter Insertion date: 06/11/18 Insertion time: 09:15 Removal date: 06/11/18 Removal time: 09:16 Condom Cath placed during this visit: no Objective Laboratory Results - last 24 hr 06/15/18 06/15/18 06/15/18 15:31 18:02 18:10 WBC RBC Hgb Hct MCV MCH MCHC RDW Plt Count MPV Neut % (Auto) Lymph % (Auto) [place] % (Auto) Eos % (Auto) Baso % (Auto) Neut # (Auto) Lymph # (Auto) [place] # (Auto) Eos # (Auto) Baso # (Auto) WBC Differential Differential Comment Puncture Site Right radial Patient Temperature 98.6 O2 Saturation 91 ABG pH 7.47 H ABG pCO2 28 L ABG pO2 66 ABG HCO3 20 L ABG O2 Content 17.8 ABG Base Excess -2.9 L ABG Methemoglobin 1.3 Wei Test Present Hemoglobin 13.9 Carboxyhemoglobin 1.3 Inspired O2 21 Critical Value No Sodium Potassium Chloride Carbon Dioxide Anion Gap BUN Creatinine Estimated GFR POC Glucose 85 83 Random Glucose Calcium Phosphorus Magnesium Total Bilirubin AST ALT Alkaline Phosphatase Total Creatine Kinase Total Protein Albumin Urine Color Urine Clarity Urine pH Ur Specific [place] Urine Protein Urine Glucose (UA) Urine Ketones Urine Occult Blood Urine Nitrate Urine Bilirubin Urine Urobilinogen Ur Leukocyte Esterase Urine WBC Urine Mucus Ur Microscopic Review 06/15/18 06/15/18 06/15/18 19:29 19:29 21:00 WBC 6.8 RBC 4.59 Hgb 14.2 Hct 42.0 MCV 91.4 MCH 30.9 MCHC 33.8 RDW 13.1 Plt Count 202 MPV 8.4 Neut % (Auto) 82.0 H Lymph % (Auto) 9.3 [place] % (Auto) 7.4 Eos % (Auto) 1.0 Baso % (Auto) 0.3 Neut # (Auto) 5.6 Lymph # (Auto) 0.6 L [place] # (Auto) 0.5 Eos # (Auto) 0.1 Baso # (Auto) 0.0 WBC Differential . Differential Comment Auto diff final Puncture Site Patient Temperature O2 Saturation ABG pH ABG pCO2 ABG pO2 ABG HCO3 ABG O2 Content ABG Base Excess ABG Methemoglobin Wei Test Hemoglobin Carboxyhemoglobin Inspired O2 Critical Value Sodium 142 Potassium 3.6 Chloride 108 H Carbon Dioxide 20.8 L Anion Gap 13 BUN 8 Creatinine 0.77 Estimated GFR Greater than 89 POC Glucose Random Glucose 81 Calcium 8.2 L Phosphorus 2.4 L Magnesium 1.9 Total Bilirubin 0.8 AST 16 ALT 18 Alkaline Phosphatase 58 Total Creatine Kinase Total Protein 5.9 L Albumin 2.8 L Urine Color Dark-yellow H Urine Clarity Clear Urine pH 5.0 Ur Specific [place] 1.023 Urine Protein Negative Urine Glucose (UA) Negative Urine Ketones 20 Urine Occult Blood Negative Urine Nitrate Negative Urine Bilirubin Negative Urine Urobilinogen Less than 2 Ur Leukocyte Esterase Negative Urine WBC 3 Urine Mucus Few H Ur Microscopic Review Not Reportable 06/15/18 06/15/18 06/16/18 21:46 23:52 06:35 WBC 6.6 RBC 4.54 Hgb 14.0 Hct 41.5 MCV 91.4 MCH 30.9 MCHC 33.8 RDW 13.2 Plt Count 201 MPV 8.3 Neut % (Auto) 79.3 H Lymph % (Auto) 11.5 [place] % (Auto) 7.5 Eos % (Auto) 1.0 Baso % (Auto) 0.7 Neut # (Auto) 5.2 Lymph # (Auto) 0.8 L [place] # (Auto) 0.5 Eos # (Auto) 0.1 Baso # (Auto) 0.0 WBC Differential . Differential Comment Auto diff final Puncture Site Patient Temperature O2 Saturation ABG pH ABG pCO2 ABG pO2 ABG HCO3 ABG O2 Content ABG Base Excess ABG Methemoglobin Wei Test Hemoglobin Carboxyhemoglobin Inspired O2 Critical Value Sodium Potassium Chloride Carbon Dioxide Anion Gap BUN Creatinine Estimated GFR POC Glucose 89 81 Random Glucose Calcium Phosphorus Magnesium Total Bilirubin AST ALT Alkaline Phosphatase Total Creatine Kinase Total Protein Albumin Urine Color Urine Clarity Urine pH Ur Specific [place] Urine Protein Urine Glucose (UA) Urine Ketones Urine Occult Blood Urine Nitrate Urine Bilirubin Urine Urobilinogen Ur Leukocyte Esterase Urine WBC Urine Mucus Ur Microscopic Review 06/16/18 06/16/18 06/16/18 08:43 08:43 11:13 WBC 6.8 RBC 4.89 Hgb 15.4 Hct 44.6 MCV 91.3 MCH 31.6 MCHC 34.6 RDW 13.1 Plt Count 202 MPV 8.9 Neut % (Auto) 76.7 H Lymph % (Auto) 10.3 [place] % (Auto) 11.2 H Eos % (Auto) 1.4 Baso % (Auto) 0.4 Neut # (Auto) 5.2 Lymph # (Auto) 0.7 L [place] # (Auto) 0.8 Eos # (Auto) 0.1 Baso # (Auto) 0.0 WBC Differential . Differential Comment Auto diff final Puncture Site Patient Temperature O2 Saturation ABG pH ABG pCO2 ABG pO2 ABG HCO3 ABG O2 Content ABG Base Excess ABG Methemoglobin Wei Test Hemoglobin Carboxyhemoglobin Inspired O2 Critical Value Sodium 140 Potassium 3.7 Chloride 108 H Carbon Dioxide 23.0 Anion Gap 9 BUN 8 Creatinine 0.77 Estimated GFR Greater than 89 POC Glucose 76 Random Glucose 68 L Calcium 8.5 Phosphorus 2.6 Magnesium 2.2 Total Bilirubin AST ALT Alkaline Phosphatase Total Creatine Kinase 240 Total Protein Albumin Urine Color Urine Clarity Urine pH Ur Specific [place] Urine Protein Urine Glucose (UA) Urine Ketones Urine Occult Blood Urine Nitrate Urine Bilirubin Urine Urobilinogen Ur Leukocyte Esterase Urine WBC Urine Mucus Ur Microscopic Review Microbiology 06/15/18 21:40 Aerobic Blood Culture - Preliminary Blood - Peripheral No growth in 1 day Anaerobic Blood Culture - Preliminary No growth in 1 day 06/15/18 21:45 Aerobic Blood Culture - Preliminary Blood - Peripheral No growth in 1 day Anaerobic Blood Culture - Preliminary No growth in 1 day Documentation reviewed: Reviewed old records Review/Management - Diagnosis (1) Acute embolic stroke Code(s): I63.9 - Cerebral infarction, unspecified Status: Acute Current Visit: Yes (2) Dyslipidemia Code(s): E78.5 - Hyperlipidemia, unspecified Status: Acute Current Visit: Yes - Review/Management Plan: L-MCA stroke. left carotid occlusion Increased mass effect on left lateral ventricle on repeat head ct scan Start Dexamethasone 4 mg Q6h iv Continue Keppra Monitor in icu Recheck head CT in am to r/o increase mass effect DVT prophylaxis GI prophylaxis Following for Dr. Watson Discussed case with JOSR
[2018-06-16] MEDS ORDERED: Acetaminophen 650 MG Supp RECTAL PRN (17:27)
--- NOTE | 2018-06-16 20:16 | XR ---
EXAM DATE: 06/16/2018 8:04 PM EST AGE/SEX: 68 years / Male INDICATIONS: Fever. Congestion. CLINICAL DATA: This is the patient's subsequent encounter. Patient reports that signs and symptoms h ave been present for 4 - 6 days and indicates a pain score of 0/10. MEDICAL/SURGICAL HISTORY: . Rheumatoid arthritis. Chronic obstructive pulmonary disease. None. [place] [facility] [place]. . FINDINGS: A single AP view of the chest demonstrates the lungs to be symmetrically aerated without evidence of mass, infiltrate or effusion. The cardiomediastinal contours are unremarkable. Osseous structures a re intact. CONCLUSION: The lungs are clear. Electronically signed by: Jose Ramon Guzmán MD Board Certified Radiologist 06/16/2018 8:15 PM EST
[2018-06-17] MEDS: Insulin NovoLIN Regular Correctional Sugar Inj SQ SCH ×4 (00:11→17:23)
[2018-06-17] MEDS: KCL 20 mEq/D5W/NaCl 0.9% Inj 1,000 ML IV.CONT SCH ×2 (04:46→21:30)
--- NOTE | 2018-06-17 07:31 | CT ---
EXAM DATE: 06/17/2018 7:25 AM EST AGE/SEX: 68 years / Male INDICATIONS: Altered Mental Status CLINICAL DATA: This is the patient's subsequent encounter. Patient reports that signs and symptoms h ave been present for 1 day and indicates a pain score of Nonresponsive. MEDICAL/SURGICAL HISTORY: Arthritis. Chronic obstructive pulmonary disease. . Back Surgery RADIATION DOSE: 37.77 CTDI (mGy) COMPARISON: [facility] – [place], [place] HEAD W/O CONTRAST, 06/16/2018. . TECHNIQUE: CT of the head without contrast. Using automated exposure control and adjustment of the mA and/or kV according to patient size, radiation dose was kept as low as reasonably achievable to ob tain optimal diagnostic quality images. DICOM format image data is available electronically for revi ew and comparison. FINDINGS: Cerebrum: Again seen is the evolving left anterior sylvian infarct. There is still no evidence for h emorrhage. There is no significant change in mass effect. Right hemisphere remains unremarkable. Posterior fossa appears normal. CONCLUSION: 1. No significant interval change. . . Electronically signed by: Ignacio Ring MD Board Certified Radiologist 06/17/2018 7:30 AM EST
--- NOTE | 2018-06-17 09:43 | P.PNIM ---
Subjective Interval history: Follow-up encephalopathy and fever. He is awake but remains aphasic answering questions and following commands. Indicates he has dizziness but no headache. Seen with daughter Physical Exam Vital signs: Vital Signs 06/16/18 10:00 06/16/18 11:00 06/16/18 11:03 Temperature Pulse Rate 77 69 71 Respiratory Rate 29 H 24 24 Blood Pressure 131/65 Pulse Oximetry 97 96 06/16/18 12:00 06/16/18 13:00 06/16/18 13:06 Temperature Pulse Rate 71 68 70 Respiratory Rate 20 34 H 42 H Blood Pressure 118/63 Pulse Oximetry 100 98 96 06/16/18 13:07 06/16/18 14:00 06/16/18 15:00 Temperature Pulse Rate 70 84 76 Respiratory Rate 16 28 H 23 Blood Pressure 100/60 111/56 L Pulse Oximetry 96 97 06/16/18 16:00 06/16/18 17:00 06/16/18 18:00 Temperature 100.6 F H 101.6 F H Pulse Rate 76 83 74 Respiratory Rate 25 H 29 H 25 H Blood Pressure 109/53 L 116/56 L 126/66 Pulse Oximetry 98 92 L 06/16/18 19:00 06/16/18 20:00 06/16/18 21:00 Temperature 99.3 F Pulse Rate 84 71 75 Respiratory Rate 20 21 Blood Pressure 121/64 115/63 110/53 L Pulse Oximetry 96 100 06/16/18 21:34 06/16/18 22:00 06/16/18 23:00 Temperature Pulse Rate 72 69 71 Respiratory Rate 24 19 25 H Blood Pressure 117/58 L 110/57 L Pulse Oximetry 97 99 06/17/18 00:00 06/17/18 01:00 06/17/18 02:00 Temperature 98.6 F Pulse Rate 67 68 78 Respiratory Rate 21 22 20 Blood Pressure 110/62 121/61 132/62 Pulse Oximetry 99 100 100 06/17/18 03:00 06/17/18 04:00 06/17/18 05:00 Temperature 98.4 F Pulse Rate 60 64 70 Respiratory Rate 18 21 22 Blood Pressure 143/63 H 143/63 H 121/68 Pulse Oximetry 97 99 99 06/17/18 06:00 06/17/18 08:11 Temperature Pulse Rate 66 69 Respiratory Rate 22 16 Blood Pressure 108/58 L Pulse Oximetry 99 93 L Intake & Output 06/16/18 06/17/18 06/17/18 18:59 06:59 18:59 Intake Total 1210 / 1210 1210 / 1210 Output Total 900 / 900 Balance 1210 / 1210 310 / 310 Weight 78.6 kg Intake: IV 1210 / 1210 1210 / 1210 D5W/NS + KCL 20 mEq Inj 1,000 1000 / 1000 ML @ 70 mls/hr IV.CONT .[id number] [facility] Rx#:[id number] NS Inj 1,000 ML @ 70 mls/hr IV. 1000 / 1000 CONT .[id number] [facility] Rx#:[id number] Keppra Inj 500 MG In NS Inj 100 210 / 210 210 / 210 ML @ 400 mls/hr IV.SIG Q6H [facility] Rx#:[id number] Output: Urine Amount (Catheter) 900 / 900 Condom 900 / 900 Other: # Incontinent Voids 4 Date of Last Bowel Movement 06/10/18 Narrative: GENERAL: Middle-age male, in no distress CHEST: Equal chest rise. Room air. CARDIOVASCULAR: Normal rate, regular rhythm. Sinus by telemetry. ABDOMEN: Soft, nontender, nondistended. No guarding. MUSCULOSKELETAL: Pulses 2+. No peripheral edema. NEUROLOGICAL: He is awake but remains aphasic moving all extremities except right upper extremity Urinary Catheter Management Straight: Cath placed during this visit: yes, but has since been removed by the nurse Reason for continuing: Not indwelling catheter Insertion date: 06/11/18 Insertion time: 09:15 Removal date: 06/11/18 Removal time: 09:16 Condom: Cath placed during this visit: no Results Labs CBC & Chem 7: 06/16/18 08:43 06/16/18 08:43 Labs: Microbiology 06/15/18 21:40 Blood - Peripheral Aerobic Blood Culture - Preliminary No growth in 1 day 06/15/18 21:40 Blood - Peripheral Anaerobic Blood Culture - Preliminary No growth in 1 day 06/15/18 21:45 Blood - Peripheral Aerobic Blood Culture - Preliminary No growth in 1 day 06/15/18 21:45 Blood - Peripheral Anaerobic Blood Culture - Preliminary No growth in 1 day Imaging Imaging: Impressions Chest X-Ray 06/16/18 00:00 CONCLUSION: The lungs are clear. Head CT 06/16/18 09:00 CONCLUSION: 1. Very slight increase in the localized mass effect on the left lateral ventricle 2. Still no evidence for hemorrhage. . . Head CT 06/17/18 00:00 CONCLUSION: 1. No significant interval change. . . Assessment and Plan (1) Acute embolic stroke: Code(s): I63.9 - Cerebral infarction, unspecified Status: Acute (2) Dyslipidemia: Code(s): E78.5 - Hyperlipidemia, unspecified Status: Acute Plan This is a 68-year-old male with acute left M1 MCA CVA and left ICA occlusion. Admit to ICU. Given the suspected large volume infarct, would be very high risk for hemorrhagic conversion. Will allow permissive hypertension, but would target his blood pressure under 180 to mitigate risks of hemorrhagic conversion. Acute left embolic M1 MCA CVA with left ICA occlusion, Acute encephalopathy and Dense receptive and expressive aphasia. Today, he has improved mental status awake but remains aphasic. Recent depressed mental status could have been a combination of increased mass-effect seen on head CT, medication effect (Keppra ) and seizure Hypertensive Emergency. Improved Frequent neurochecks. Pureed with honey thick Repeat MRI without significant change Repeat head CT today no significant change EEG with no epileptiform activity lipids. Statin based on lipid profile, atorvastatin started (patient on Crestor) A1c 5.7 2D echo, an estimated ejection fraction in the range of 55-60%. 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 Risk factor modification Advance diet per speech recommendations. If tolerating diet discontinue the Fever. Workup negative including chest x-ray and urinalysis. Improved follow- up blood cultures. Likely from atelectasis versus MDM SR insult. We will continue to monitor SCD and early OOB for DVT proph code Status: Full Transfer out of ICU later today if he remains stable then discharged to Progress Note: Quality VTE Deep Vein Thrombosis/Pulmonary Embolism Present on Admission: No
[2018-06-17] MEDS: Senna/Docusate Sodium 8.6/50 MG Tablet PO SCH ×2 (09:49→21:30)
[2018-06-17] MEDS: Pantoprazole Sodium 20 MG DR Tablet PO SCH (09:49)
[2018-06-17] MEDS: Fenofibrate 145 MG Tablet PO SCH (09:49)
[2018-06-17] MEDS: Potassium Phosphate 500 MG Soluble Tablet PO SCH ×4 (09:54→21:30)
[2018-06-17] MEDS: Aspirin 300 MG Supp RECTAL SCH (09:54)
[2018-06-17] MEDS: Sodium Chloride 0.9% 2 ML Flush BID IV.FLUSH SCH ×2 (09:54→20:54)
[2018-06-17] MEDS: Polyethylene Glycol 3350 17 GM Packet PO SCH ×2 (09:55→20:54)
[2018-06-17] MEDS: Allopurinol 100 MG Tablet PO SCH (09:55)
[2018-06-17 10:53] LABS: Baso % (Auto) 0.3 % (0.0-2.0); Hematocrit 43.1 % (39.0-51.0); Hemoglobin 14.9 gm/dL (13.0-17.0); Lymph # (Auto) 0.6 th/mm3 (1.0-4.8); Mean Corpuscular HGB Conc 34.5 % (32.0-36.0); Mean Corpuscular Volume 89.9 fL (80.0-100.0); Mean Platelet Volume 8.5 fL (7.0-11.0); Mono # (Auto) 0.5 th/mm3 (0.0-0.9); Neut # (Auto) 6.9 th/mm3 (1.8-7.7); Neut % (Auto) 86.7 % (16.0-70.0); Platelet Count 235 th/mm3 (150-450); Red Cell Distribution Width 13.2 % (11.6-17.2)
[2018-06-17 11:11] LABS: Anion Gap 10 meq/L (5-15); Blood Urea Nitrogen 9 mg/dL (7-18); Calcium 7.8 mg/dL (8.5-10.1); Carbon Dioxide 18.2 meq/L (21.0-32.0); Chloride 113 meq/L (98-107); Glomerular Filtration Rate Greater Than 89 mL/min (>89); Glucose,Random 144 mg/dL (74-106); Magnesium 2.1 mg/dL (1.5-2.5); Phosphorus 2.4 mg/dL (2.5-4.9); Potassium 4.1 meq/L (3.5-5.1); Sodium 141 meq/L (136-145)
[2018-06-17] MEDS: Clotrimazole 10 MG Troche BUCCAL SCH ×2 (17:22→21:34)
[2018-06-18] MEDS: Insulin NovoLIN Regular Correctional Sugar Inj SQ SCH ×4 (00:20→18:42)
[2018-06-18 04:03] LABS: Baso % (Auto) 0.1 % (0.0-2.0); Hematocrit 43.1 % (39.0-51.0); Hemoglobin 14.8 gm/dL (13.0-17.0); Lymph # (Auto) 0.6 th/mm3 (1.0-4.8); Lymph % (Auto) 5.8 % (9.0-44.0); Mean Corpuscular HGB Conc 34.4 % (32.0-36.0); Mean Platelet Volume 8.6 fL (7.0-11.0); Mono # (Auto) 0.7 th/mm3 (0.0-0.9); Mono % (Auto) 6.4 % (0.0-8.0); Neut # (Auto) 9.5 th/mm3 (1.8-7.7); Neut % (Auto) 87.7 % (16.0-70.0); Platelet Count 257 th/mm3 (150-450); Red Blood Count 4.79 mil/mm3 (4.50-5.90); Red Cell Distribution Width 13.3 % (11.6-17.2); White Blood Count 10.8 th/mm3 (4.0-11.0)
[2018-06-18 04:26] LABS: Anion Gap 8 meq/L (5-15); Blood Urea Nitrogen 11 mg/dL (7-18); Calcium 8.2 mg/dL (8.5-10.1); Carbon Dioxide 22.3 meq/L (21.0-32.0); Chloride 114 meq/L (98-107); Glomerular Filtration Rate Greater Than 89 mL/min (>89); Glucose,Random 134 mg/dL (74-106); Magnesium 2.2 mg/dL (1.5-2.5); Potassium 3.9 meq/L (3.5-5.1); Sodium 144 meq/L (136-145)
[2018-06-18 04:27] LABS: Phosphorus 2.3 mg/dL (2.5-4.9)
[2018-06-18] MEDS: Clotrimazole 10 MG Troche BUCCAL SCH ×5 (05:37→22:28)
[2018-06-18] MEDS: Pantoprazole Sodium 20 MG DR Tablet PO SCH (09:13)
[2018-06-18] MEDS: Fenofibrate 145 MG Tablet PO SCH (09:13)
[2018-06-18] MEDS: Allopurinol 100 MG Tablet PO SCH (09:13)
[2018-06-18] MEDS: Senna/Docusate Sodium 8.6/50 MG Tablet PO SCH ×2 (09:13→22:27)
[2018-06-18] MEDS: Potassium Phosphate 500 MG Soluble Tablet PO SCH ×2 (09:13→22:27)
[2018-06-18] MEDS: Polyethylene Glycol 3350 17 GM Packet PO SCH ×2 (09:14→22:27)
[2018-06-18] MEDS: Sodium Chloride 0.9% 2 ML Flush BID IV.FLUSH SCH ×2 (09:14→22:27)
--- NOTE | 2018-06-18 09:31 | P.DS ---
DS: Providers Date of admission: 06/11/18 09:45 Primary care physician: UNKNOWN Consults: 06/11/18 08:28 Consult to Neurology Stat Consulting Provider: Charli Watson For STAT consult, spoke directly to:: ivania Preferred Marketing Representative:: Charli Watson Reason for Consultation: Brain Attack Notified:: Office Spoke with:: Luis Date Notified:: 06/11/18 Time Notified:: 08:37 Ordering Provider: ARACELI 06/11/18 10:04 HUB Only Consult Order Routine Consulting Provider: Jes Andre 06/11/18 10:26 Consult to Neurosurgery Routine Consulting Provider: Jay Collins Reason for Consultation: left MCA CVA, unable to intervene. please follow for need for decompressive craniectomy Notified:: Physician Spoke with:: Dr Collins Date Notified:: 06/11/18 Time Notified:: 10:36 Ordering Provider: KARLEE 06/12/18 12:44 Consult to Hospitalist Routine Consulting Provider: Vish Rodriguez Reason for Consultation: Assume care in am 06/13/18 Notified:: Service Spoke with:: LETICIA Date Notified:: 06/12/18 Time Notified:: 12:56 Comments:: WAITING E [employer]LY[employer] BACK Ordering Provider: THUAN 06/12/18 12:47 Consult to Rehab Medicine Routine Consulting Provider: Oanh Doherty Preferred Marketing Representative:: Oanh Doherty Patient known to:: Oanh Doherty Reason for Consultation: Acute L MCA stroke Notified:: Service Spoke with:: LETICIA Date Notified:: 06/12/18 Time Notified:: 12:59 Ordering Provider: THUAN 06/12/18 12:49 Consult to Vascular Surgery Routine Consulting Provider: Jonathon Avila Reason for Consultation: Left ICA occlusion, s/p stroke Notified:: Physician Spoke with:: Date Notified:: 06/12/18 Time Notified:: 12:58 Ordering Provider: THUAN 06/14/18 13:45 HUB Only Consult Order Routine Consulting Provider: Ld Soriano,Cleopatra 06/14/18 13:46 HUB Only Consult Order Routine Consulting Provider: Kelli Shin [facility] Brief History from admission: This is a 68-year-old male with a history of hyperlipidemia, GERD who presented to the emergency department this morning with new onset of altered mentation. The patient is unable to produce pain history and is densely aphasic and so the history is obtained from the medical record and from emergency room physician. Per records, the patient's son was notified at 7 AM when his father called him on the phone but had garbled speech. Although the son thinks that his true last seen normal time was between 2 and 6 AM based on circumstantial evidence he found in the house, the patient's true last seen normal time was greater than 3 days ago when he was seen by his son intact. In the emergency department emergent noncontrasted head CT was negative for acute bleed. CTA head neck demonstrated occluded left internal carotid artery as well as occluded left M1 branch MCA. CT perfusion demonstrated a large discrepancy between infarct and restricted diffusion suggesting that there was a large area of brain that was at risk for further infarction, and based on these imaging studies decision was made to take him to emergent endovascular clot retrieval. However, despite attempts, interventional radiology was unable to get past chronic occluded left ICA, and the procedure was aborted. I saw the patient both in interventional radiology and again in the intensive care unit. He is densely aphasic. Review of systems is unobtainable. He is moving all extremities although not following commands. He does appear to be weaker on the right side than the left side. DS: Diagnosis Discharge Diagnosis (1) Acute embolic stroke: Status: Acute (2) Dyslipidemia: Status: Acute DS: Summary This is a 68-year-old male with acute left M1 MCA CVA and left ICA occlusion. Acute left embolic M1 MCA CVA with left ICA occlusion, Acute encephalopathy and Dense receptive and expressive aphasia. Improving encephalopathy and aphasia. Recent depressed mental status could have been a combination of increased mass- effect seen on head CT, medication effect (Keppra) and seizure Hypertensive Emergency. Improved Frequent neurochecks. Failed MBS s/p PEG, ct TF as tolerated Repeat MRI without significant change Repeat head CT no significant change EEG with no epileptiform activity lipids. Statin based on lipid profile, atorvastatin started (patient on Crestor) A1c 5.7 2D echo, an estimated ejection fraction in the range of 55-60%. 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 Risk factor modification Epig pain and hiccups s/p PEG. Abdominal CT shows PEG in the distal gastric body. No free intraperitoneal air or acute abnormality. Ultrasound shows echogenic liver consistent with hepatic steatosis versus medical liver disease.2. Gallbladder sludge with nonspecific mild gallbladder wall thickening.3. Pancreas not well demonstrated.improved continue Bentyl and Thorazine. Continue pain management fever. Workup negative including chest x-ray and urinalysis. Improved follow- up blood cultures. Likely from atelectasis versus [employer] insult. We will continue to monitor. Mild leukocytosis likely secondary to steroid Hypoxia. No respiratory symptoms. Obtain chest x-ray and wean and discontinue oxygen keep saturation 92%. Likely from atelectasis. SCD and early OOB for DVT proph code Status: Full Stable for discharge to [place] Time Spent with Patient Total time spent providing and/or coordinating discharge services: Greater than 30 minutes Quality: Stroke Last date observed well: 06/11/18 Last time observed well: 02:00 Quality: VTE Deep Vein Thrombosis/Pulmonary Embolism Present on Admission: No Exam Narrative Exam Narrative: GENERAL: Middle-age male, in no distress CHEST: Equal chest rise. CARDIOVASCULAR: Normal rate, regular rhythm. Sinus by telemetry. ABDOMEN: Soft, tender over PEG which is in place, nondistended. No guarding. MUSCULOSKELETAL: Pulses 2+. No peripheral edema. NEUROLOGICAL: He is awake but remains aphasic moving all extremities except right upper extremity Results Procedures completed during hospitalization: PEG Labs on day of discharge: Labs from last 24 hours 06/18/18 06/18/18 06/18/18 05:44 03:26 03:26 WBC 10.8 RBC 4.79 Hgb 14.8 Hct 43.1 MCV 90.0 MCH 31.0 MCHC 34.4 RDW 13.3 Plt Count 257 MPV 8.6 Prelim Diff (Auto) Neut % (Auto) 87.7 H Lymph % (Auto) 5.8 L [place] % (Auto) 6.4 Eos % (Auto) 0.0 Baso % (Auto) 0.1 Neut # (Auto) 9.5 H Lymph # (Auto) 0.6 L [place] # (Auto) 0.7 Eos # (Auto) 0.0 Baso # (Auto) 0.0 WBC Differential . Diff Scan Differential Comment Auto diff final Hematology Comments Sodium 144 Potassium 3.9 Chloride 114 H Carbon Dioxide 22.3 Anion Gap 8 BUN 11 Creatinine 0.71 Estimated GFR Greater than 89 POC Glucose 149 H Random Glucose 134 H Calcium 8.2 L Phosphorus 2.3 L Magnesium 2.2 06/18/18 06/17/18 06/17/18 00:09 16:12 11:45 WBC RBC Hgb Hct MCV MCH MCHC RDW Plt Count MPV Prelim Diff (Auto) Neut % (Auto) Lymph % (Auto) [place] % (Auto) Eos % (Auto) Baso % (Auto) Neut # (Auto) Lymph # (Auto) [place] # (Auto) Eos # (Auto) Baso # (Auto) WBC Differential Diff Scan Differential Comment Hematology Comments Sodium Potassium Chloride Carbon Dioxide Anion Gap BUN Creatinine Estimated GFR POC Glucose 148 H 124 H 148 H Random Glucose Calcium Phosphorus Magnesium 06/17/18 06/17/18 10:20 10:20 WBC 8.0 RBC 4.80 Hgb 14.9 Hct 43.1 MCV 89.9 MCH 31.0 MCHC 34.5 RDW 13.2 Plt Count 235 MPV 8.5 Prelim Diff (Auto) Slide review pending Neut % (Auto) 86.7 H Lymph % (Auto) 7.0 L [place] % (Auto) 6.0 Eos % (Auto) 0.0 Baso % (Auto) 0.3 Neut # (Auto) 6.9 Lymph # (Auto) 0.6 L [place] # (Auto) 0.5 Eos # (Auto) 0.0 Baso # (Auto) 0.0 WBC Differential . Diff Scan Auto diff confirmed Differential Comment . Hematology Comments Sodium 141 Potassium 4.1 Chloride 113 H Carbon Dioxide 18.2 L Anion Gap 10 BUN 9 Creatinine 0.70 Estimated GFR Greater than 89 POC Glucose Random Glucose 144 H Calcium 7.8 L Phosphorus 2.4 L Magnesium 2.1 Preliminary micro results at discharge 06/15/18 21:40 Aerobic Blood Culture - Preliminary Blood - Peripheral No growth in 2 days Anaerobic Blood Culture - Preliminary No growth in 2 days 06/15/18 21:45 Aerobic Blood Culture - Preliminary Blood - Peripheral No growth in 2 days Anaerobic Blood Culture - Preliminary No growth in 2 days Impressions ITS Impressions Cerebral Angiography 06/11/18 00:00 CONCLUSION: 1. Acute occlusion on chronic critical stenosis of the left internal carotid at its origin. The patient is not a candidate for embolectomy. Head CTA 06/11/18 08:28 CONCLUSION: 1. Embolic occlusion on the left. CT suggests an older stroke then suggested by history. Report was called by Dr. Ring at 0905 AM. Neck CTA 06/11/18 08:28 CONCLUSION: 1. 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 Ring at [address] CAD 06/11/18 08:29 CONCLUSION: Physiological brain perfusion parameters with RAPID analysis as above. The decision for consideration of therapy is multi factorial and multi disciplinary relying on subjective and objective clinical data. This data is not construed or intended to be the sole determinant of treatment eligibility. Head MRI 06/15/18 16:02 CONCLUSION: 1. Left MCA infarct noted. There is mild mass effect on the frontal horn of the left lateral ventricle. 1 mm left to right shift. Chest X-Ray 06/16/18 00:00 CONCLUSION: The lungs are clear. Head CT 06/17/18 00:00 CONCLUSION: 1. No significant interval change. . . Discharge Plan Discharge Disposition Patient Disposition: 62 Rehab Inpatient Discharge Condition Condition: Stable Discharge Order Discharge Orders: Discharge Order (Routine); Ordered 06/19/18 Ordered By: Vish Rodriguez Physicians Team ED Provider: Vitor Lancaster Primary Care Provider: ADELINE, Attending Provider: Vish Rodriguez Other Providers: Charli Watson ; Jay Collins ; Jes Andre ; Jonathon Avila ; Oanh Doherty ; Ld Briceno [facility] ; [facility] ; Quinn Hood V Rxs /Orders / Referrals /Forms Prescriptions: New clotrimazole 10 mg Elizabeth 10 mg buccal 5 TIMES A DAY Qty: 65 RF: 0 dextroamphetamine 5 mg Tablet 10 mg Feeding Tube BID Qty: 6 RF: 0 allopurinol 100 mg Tablet 100 mg Feeding Tube DAILY Qty: 30 RF: 0 cholecalciferol (vitamin D3) 5,000 unit Capsule 5,000 unit Feeding Tube DAILY Qty: 30 RF: 0 rosuvastatin [Crestor] 20 mg tablet 20 mg Feeding Tube DAILY Qty: 30 RF: 0 fenofibrate nanocrystallized 145 mg Tablet 145 mg PO DAILY Qty: 30 RF: 0 levetiracetam [Keppra] 500 mg tablet 500 mg PO BID Qty: 60 RF: 0 lansoprazole [Prevacid SoluTab] 30 mg tablet,disintegrat, delay rel 30 mg Feeding Tube DAILY Qty: 30 RF: 0 dexamethasone [Decadron] 4 mg tablet 4 mg Feeding Tube Q6H Qty: 120 RF: 0 aspirin 300 mg Suppository 300 mg MS DAILY Qty: 30 RF: 0 dicyclomine 20 mg Tablet 20 mg NG/OG TID Qty: 30 RF: 0 chlorpromazine 25 mg Tablet 25 mg G-Tube Q6H Qty: 4 RF: 0 Discontinued minocycline 100 mg Capsule 100 mg PO DAILY RF: 0 allopurinol 100 mg Tablet 100 mg PO DAILY RF: 0 sulfamethoxazole-trimethoprim 800-160 mg Tablet 1 tab PO BID RF: 0 omeprazole 20 mg Tablet,Delayed Release (Dr/Ec) 20 mg PO DAILY RF: 0 oxycodone-acetaminophen 5-325 mg Tablet 1 tab PO Q12H PRN (Reason: Pain) RF: 0 vardenafil [Levitra] 10 mg Tablet 10 mg PO DAILY PRN (Reason: Erectile Dysfunction) RF: 0 cholecalciferol (vitamin D3) [Vitamin D3] 5,000 unit Tablet 5,000 unit PO DAILY RF: 0 amphetamine sulfate 10 mg Tablet 10 mg PO BID RF: 0 rosuvastatin 20 mg Tablet 20 mg PO DAILY RF: 0 fenofibrate 160 mg Tablet 160 mg PO DAILY RF: 0 Referrals: Charli Watson MD, PhD [Physician] - See Instructions (Follow-up in 1-2 weeks) Jay Collins MD [Physician] - See Instructions (Follow-up in 1-2-week) UNKNOWN, [Primary Care Provider] - See Instructions (Follow-up PCP in 3 days) Post Discharge Care Plan Care Plan Goals: Your Health Problems: Goals to Promote Your Health: * To prevent worsening of your condition * To maintain your health at the optimal level Directions to Meet Your Goals: * Take your medications as prescribed * Follow your dietary instruction * Follow activity as directed * Keep your appointments as scheduled * Take your immunizations and boosters as scheduled * If your symptoms worsen call your PCP * If no PCP go to Urgent Care or Emergency Room Smoking is dangerous to your health. Avoid second hand smoke. You may reach the 24-hour crisis hotline for domestic abuse at . Status ED Status: Left Department
--- NOTE | 2018-06-18 10:29 | FL ---
EXAM DATE: 06/18/2018 10:25 AM EST AGE/SEX: 68 years / Male INDICATIONS: Dysphagia CLINICAL DATA: This is the patient's initial encounter. Patient reports that signs and symptoms have been present for 4 - 6 days and indicates a pain score of Nonresponsive. MEDICAL/SURGICAL HISTORY: Chronic obstructive pulmonary disease. stroke with right side weaknes s None. COMPARISON: [facility] [place] CERV[place] W/O CONTRAST, 11/14/2015. . FLUORO TIME: 3.1 IMAGE COUNT: 2 RADIATION DOSE: 70.02 DAP FINDINGS: Patient has no trigger for swallowing and aspirates repeatedly. CONCLUSION: Aspiration as above. Please see consultation with speech pathology Electronically signed by: Ignacio Ring MD Board Certified Radiologist 06/18/2018 10:27 AM EST
--- NOTE | 2018-06-18 14:34 | P.CONGI ---
History of Present Illness Consult date: 06/18/18 Consult reason: PEG tube placement Chief complaint: Acute Embolic Stroke,Dyslipideamia Tobacco Use D/O History of Present Illness: Patient is a pleasant 68-year-old male with past medical history of COPD, arthritis and hyperlipidemia. Surgical history significant for back surgery. Patient presented to [facility] emergency room with new onset of altered mental status. Upon consultation, patient's daughter available to provide history to comprise history of present illness. She reports that one week ago patient was found by his son at home and noted to be slumped over. She states patient's son had called him earlier that morning and noted that his speech was slurred and garbled. Upon arrival to emergency room, patient was noted to have a large clot-with subacute infarct involving a large portion of the left anterior region extending into the head of the caudate and basal ganglia involving both limbs and internal capsule without hemorrhage. CTA on stroke alert revealed occluded left internal carotid bifurcation skull base. Patient was admitted to ICU to undergo continuing observation with physical therapy and speech therapy. Patient was transferred out of ICU and taken to the neurology unit where he sustained a fall and became lethargic. MRI at that time revealed increased swelling with no active bleeding. CT brain on 06/17/2018 showed no significant change or increase in swelling. Patient currently receiving Keppra and Decadron. Modified barium swallow study with speech include recommendations for n.p.o. due to severe pharyngeal dysphasia with recurring aspiration of all consistencies attempted during the study. Our service has been consulted to evaluate patient for PEG tube placement for which patient's daughter states family members verbalized understanding and are consenting to. Review of Systems All other systems reviewed negative except as stated in HPI, other PMFSH - History History Provided By: Family Member, Medical Record - Medical History Medical History: Medical History (Last Reviewed 06/18/18 @ 11:45 by Aryan Uribe) Arthritis, rheumatoid COPD (chronic obstructive pulmonary disease) Hyperlipemia - Surgical History Surgical History: Surgical History (Last Reviewed 06/18/18 @ 11:45 by Aryan Uribe) Previous back surgery - Family History Family History: Family History (Last Reviewed 06/18/18 @ 08:42 by [facility]) Other Family history non-contributory - Tobacco History Second Hand Smoke Exposure: Yes Tobacco Use In Past 30 Days: Yes Smoking Status: Current every day smoker Tobacco Type: Cigarettes - Alcohol History How Often Do You Have a Drink Containing Alcohol: Monthly or less - Substance Use History Substance History: Active Abuse - Substance Use Type Marijuana Status: Active Route Used: Inhalation - Travel History Recent Travel in the [place] Within the Last 8 Weeks: No Recent Travel Out of the Country Within the Last 8 Weeks: No - Immunization History Tetanus Immunization: Unsure Hx Influenza Vaccine This Season: Unable to Assess Medications and Allergies Active Medications: Active Medications Acetaminophen (Tylenol) 650 mg PO Q6H PRN PRN Reason: TEMPERATURE > 101 F Last Admin: 06/17/18 14:27 Dose: 650 mg Acetaminophen (Tylenol Supp) 650 mg RECTAL Q6H PRN PRN Reason: TEMP >/= 100.5 Last Admin: 06/16/18 17:42 Dose: 650 mg Albuterol (Duoneb Neb (Prn)) 1 ampul NEB Q2HR NEB PRN PRN Reason: WHEEZING Last Admin: 06/16/18 13:06 Dose: 1 ampul Albuterol (Albuterol Neb (Gloria)) 0.63 mg NEB Q6HR NEB GLORIA Last Admin: 06/18/18 10:41 Dose: 0.63 mg Allopurinol (Zyloprim) 100 mg PO DAILY [facility] Last Admin: 06/18/18 09:13 Dose: 100 mg Aspirin (Aspirin Supp) 300 mg RECTAL DAILY GLORIA Atorvastatin Calcium (Lipitor) 80 mg PO DAILY [facility] Last Admin: 06/18/18 09:13 Dose: 80 mg Bisacodyl (Dulcolax Supp) 10 mg RECTAL DAILY PRN PRN Reason: if no BM in last 24h Clonidine HCl (Catapres) 0.1 mg PO Q6H PRN PRN Reason: SEE LABEL COMMENTS Clotrimazole (Mycelex Elizabeth) 10 mg BUCCAL 5 TIMES A DAY [facility] Stop: 07/01/18 14:01 Last Admin: 06/18/18 14:16 Dose: 10 mg Dexamethasone Sodium Phosphate (Decadron Inj) 4 mg IV.PUSH Q6HR GLORIA Last Admin: 06/18/18 11:52 Dose: 4 mg Dextroamphetamine Sulfate (Dextrostat) 10 mg PO BID GLORIA Last Admin: 06/18/18 09:12 Dose: 10 mg Dextrose (D50w Vial) 50 ml IV.PUSH UNSCH PRN PRN Reason: PER HYPOGLYCEMIA PROTOCOL Enalaprilat (Vasotec Inj) 1.25 mg IV.PUSH Q6H PRN PRN Reason: SEE LABEL COMMENTS Fenofibrate (Tricor) 145 mg PO DAILY [facility] Last Admin: 06/18/18 09:13 Dose: 145 mg Glucagon (Glucagon Inj) 1 mg OTHER PRN PRN PRN Reason: for Hypoglycemia Protocol Levetiracetam 500 mg/ Sodium (Chloride) 105 mls @ 400 mls/hr IV.SIG Q6H [facility] Last Infusion: 06/18/18 12:11 Dose: Infused Potassium Chloride/Sodium Chloride (Ns + Kcl 20 Meq Inj) 1,000 mls @ 70 mls/hr IV.CONT .[id number] [facility] Last Admin: 06/18/18 14:16 Dose: 70 mls/hr Insulin Human Regular (Novolin R Correctional Sugar Inj) 0 units SQ Q6HR [facility]; Protocol Last Admin: 06/18/18 12:35 Dose: Not Given Lactulose (Lactulose Liq) 30 ml PO BID [facility] Last Admin: 06/18/18 09:13 Dose: 30 ml Ondansetron HCl (Zofran Inj) 4 mg IV.PUSH Q6H PRN PRN Reason: NAUSEA OR VOMITING Oxycodone/Acetaminophen (Percocet 5/325 Mg) 1 tab PO Q12H PRN PRN Reason: PAIN SCALE 1 TO 10 Pantoprazole Sodium (Protonix) 20 mg PO DAILY [facility] Last Admin: 06/18/18 09:13 Dose: 20 mg Polyethylene Glycol (Miralax) 17 gm PO BID [facility] Last Admin: 06/18/18 09:14 Dose: Not Given Potassium Phosphate (K-Phos Original) 500 mg PO BID [facility] Last Admin: 06/18/18 09:13 Dose: 500 mg Senna/Docusate Sodium (Shaunna-Colace) 1 tab PO BID [facility] Last Admin: 06/18/18 09:13 Dose: 1 tab Sodium Chloride (Ns Flush) 2 ml IV.FLUSH BID [facility] Last Admin: 06/18/18 09:14 Dose: 2 ml Sodium Chloride (Ns Flush) 2 ml IV.FLUSH PRN PRN PRN Reason: FLUSH AFTER USING IV ACCESS Vitamin D (Vitamin D3) 5,000 unit PO DAILY [facility] Last Admin: 06/18/18 09:13 Dose: 5,000 unit Allergies Allergy/AdvReac Type Severity Reaction Status Date / Time penicillin G Allergy Severe SWELLING Verified 06/11/18 08:40 Home Medications Medication Instructions Recorded Confirmed Type allopurinol 100 mg PO DAILY 06/11/18 06/11/18 History amphetamine sulfate 10 mg PO BID 06/11/18 06/11/18 History cholecalciferol (vitamin D3) 5,000 unit PO DAILY 06/11/18 06/11/18 History [Vitamin D3] fenofibrate 160 mg PO DAILY 06/11/18 06/11/18 History omeprazole 20 mg PO DAILY 06/11/18 06/11/18 History oxycodone-acetaminophen 1 tab PO Q12H PRN 06/11/18 06/11/18 History rosuvastatin 20 mg PO DAILY 06/11/18 06/11/18 History Exam Vital signs: Vital Signs 06/17/18 15:00 06/17/18 16:00 06/17/18 16:09 Temperature 98.7 F Pulse Rate 77 79 69 Respiratory Rate 40 H 27 H 25 H Blood Pressure 110/65 117/70 117/70 Pulse Oximetry 93 L 06/17/18 16:10 06/17/18 16:25 06/17/18 17:00 Temperature Pulse Rate 72 74 72 Respiratory Rate 18 24 Blood Pressure 112/72 Pulse Oximetry 06/17/18 18:00 06/17/18 19:00 06/17/18 20:00 Temperature 97.8 F Pulse Rate 69 68 64 Respiratory Rate 24 22 24 Blood Pressure 125/70 119/71 126/68 Pulse Oximetry 98 93 L 06/17/18 21:00 06/17/18 21:19 06/17/18 22:00 Temperature Pulse Rate 62 60 70 Respiratory Rate 21 26 H 23 Blood Pressure 126/68 117/63 Pulse Oximetry 94 L 96 95 06/17/18 23:00 06/18/18 00:00 06/18/18 01:00 Temperature 98.0 F Pulse Rate 67 63 62 Respiratory Rate 20 20 23 Blood Pressure 118/63 120/68 130/70 Pulse Oximetry 94 L 97 94 L 06/18/18 02:00 06/18/18 03:00 06/18/18 04:00 Temperature 97.7 F Pulse Rate 54 L 60 63 Respiratory Rate 19 22 22 Blood Pressure 112/61 122/64 130/82 Pulse Oximetry 93 L 94 L 94 L 06/18/18 05:00 06/18/18 06:00 06/18/18 08:00 Temperature 98.4 F Pulse Rate 61 53 L 65 Respiratory Rate 20 18 20 Blood Pressure 139/75 144/65 H 137/77 Pulse Oximetry 96 98 95 06/18/18 10:43 06/18/18 12:00 Temperature 97.7 F Pulse Rate 68 81 Respiratory Rate 20 18 Blood Pressure 135/79 Pulse Oximetry 95 91 L Intake & Output 06/17/18 06/18/18 06/18/18 18:59 06:59 18:59 Intake Total 345 / 345 1240 / 1240 1010 / 1010 Output Total 1450 / 1450 1350 / 1350 Balance -1105 / -1105 -110 / -110 1010 / 1010 Weight 75.5 kg Intake: IV 105 / 105 1210 / 1210 1010 / 1010 D5W/NS + KCL 20 mEq Inj 1,000 1000 / 1000 800 / 800 ML @ 70 mls/hr IV.CONT .[id number] GLORIA Rx#:[id number] Keppra Inj 500 MG In NS Inj 100 105 / 105 210 / 210 210 / 210 ML @ 400 mls/hr IV.SIG Q6H GLORIA Rx#:[id number] Oral 240 / 240 30 / 30 Output: Urine Amount (Catheter) 1450 / 1450 1350 / 1350 Condom 1450 / 1450 1350 / 1350 Other: Date of Last Bowel Movement 06/14/18 06/18/18 # Incontinent Bowel Movements 1 - Constitutional average body habitus, chronically ill appearing, cooperative - Routine HEENT Exam Head: Present: normocephalic - Routine Neck Exam Present: supple, trachea midline - Routine Respiratory Exam Present: CTA bilaterally. Absent: accessory muscle use - Routine Cardiovascular Exam Present: RRR, S1, S2 - Routine Abdominal Exam Present: soft, normoactive bowel sounds. Absent: tenderness, guarding, firm - Routine Extremities Exam Absent: edema - Routine Skin Exam Present: dry, warm. Absent: pallor - Routine Neurological Exam Present: alert Aphasic but able to follow direction Right upper and lower extremity weakness Results - Labs CBC & Chem 7: 06/18/18 03:26 06/18/18 03:26 Labs: Laboratory Results - last 24 hr 0206/18/18 06/18/18 16:12 00:09 03:26 WBC 10.8 RBC 4.79 Hgb 14.8 Hct 43.1 MCV 90.0 MCH 31.0 MCHC 34.4 RDW 13.3 Plt Count 257 MPV 8.6 Neut % (Auto) 87.7 H Lymph % (Auto) 5.8 L [place] % (Auto) 6.4 Eos % (Auto) 0.0 Baso % (Auto) 0.1 Neut # (Auto) 9.5 H Lymph # (Auto) 0.6 L [place] # (Auto) 0.7 Eos # (Auto) 0.0 Baso # (Auto) 0.0 WBC Differential . Differential Comment Auto diff final Sodium Potassium Chloride Carbon Dioxide Anion Gap BUN Creatinine Estimated GFR POC Glucose 124 H 148 H Random Glucose Calcium Phosphorus Magnesium 06/18/18 06/18/18 06/18/18 03:26 05:44 12:04 WBC RBC Hgb Hct MCV MCH MCHC RDW Plt Count MPV Neut % (Auto) Lymph % (Auto) [place] % (Auto) Eos % (Auto) Baso % (Auto) Neut # (Auto) Lymph # (Auto) [place] # (Auto) Eos # (Auto) Baso # (Auto) WBC Differential Differential Comment Sodium 144 Potassium 3.9 Chloride 114 H Carbon Dioxide 22.3 Anion Gap 8 BUN 11 Creatinine 0.71 Estimated GFR Greater than 89 POC Glucose 149 H 130 H Random Glucose 134 H Calcium 8.2 L Phosphorus 2.3 L Magnesium 2.2 - Imaging Impressions Videofluoroscopic Swallow 06/18/18 00:00 CONCLUSION: Aspiration as above. Please see consultation with speech pathology Assessment and Plan (1) Encounter for PEG (percutaneous endoscopic gastrostomy) Status: Acute Code(s): Z43.1 - Encounter for attention to gastrostomy - Plan Patient is a pleasant 68-year-old male with past medical history of COPD, arthritis and hyperlipidemia. Surgical history significant for back surgery. Patient presented to [facility] emergency room with new onset of altered mental status. Upon consultation, patient's daughter available to provide history to comprise history of present illness. She reports that one week ago patient was found by his son at home and noted to be slumped over. She states patient's son had called him earlier that morning and noted that his speech was slurred and garbled. Upon arrival to emergency room, patient was noted to have a large clot-with subacute infarct involving a large portion of the left anterior region extending into the head of the caudate and basal ganglia involving both limbs and internal capsule without hemorrhage. CTA on stroke alert revealed occluded left internal carotid bifurcation skull base. Patient was admitted to ICU to undergo continuing observation with physical therapy and speech therapy. Patient was transferred out of ICU and taken to the neurology unit where he sustained a fall and became lethargic. MRI at that time revealed increased swelling with no active bleeding. CT brain on 06/17/2018 showed no significant change or increase in swelling. Patient currently receiving Keppra and Decadron. Modified barium swallow study with speech include recommendations for n.p.o. due to severe pharyngeal dysphasia with recurring aspiration of all consistencies attempted during the study. Our service has been consulted to evaluate patient for PEG tube placement for which patient's daughter states family members verbalized understanding and are consenting to. PEG tube placement Patient post embolic stroke 06/11/2018 06/18/2018 modified barium swallow- N.P.O UNABLE TO RECOMMEND ANY SAFE PO CONSISTENCY DUE TO FREQUENCY OF AIRWAY PENETRATION AND ASPIRATION EVENTS OBSERVED DURING THIS STUDY. MAY NEED TO CONSIDER POSSIBLE PLACEMENT OF SENIOR LIVING NON-ORAL MEANS OF NUTRITION SUCH PEG TUBE. CONTINUE DYSPHAGIA THERAPY WITH SPEECH PATHOLOGY WBC 10.8 hemoglobin 14.8 hematocrit 43.1 platelet count 257 INR 1.0 Plan N.p.o. Aspiration precautions Dietary consult for tube feeding Obtain consent for [facility] Supportive care Further recommendations to follow This patient has been seen by myself and Dr. Hood and this note is written on his behalf - Attending Attestation Dr. Hood
--- NOTE | 2018-06-18 15:12 | P.DIET ---
Nutritional Evaluation Type of nutrition evaluation: initial Nutrition consult regarding: Tube Feeding Nutrition [place] [facility] - Diagnosis acute embolic stroke, dyslipidemia, tobacco abuse - Objective Body Mass Index: 23.9 [place] body weight: 75 kg (166lbs) % IBW: 100 Body Weight Used for Calculations: Actual (75.5kg) Energy Needs - Lower Range (kCal/kg): 25 Energy Needs - Upper Range (kCal/kg): 30 Lower Limit kCal/kg (kCals): 1,887 Upper Limit kCal/kg (kCals): 2,265 Lower Limit Protein Factor (Grams per Kg): 1.0 Upper Limit Protein Factor (Grams per Kg): 1.2 Lower Protein Needs (Protein): 75 Upper Protein Needs (Protein): 90 Dietitian Reviewed in Medical Record: Current diet, Curent medications, Intake & Output, Labs, Medical history Diet Order: NPO Objective Comments: PMH; HTN, GERD, Gout Labs; POC 149, 130 Medications; insulin, lactulose Assessment Assessment: [facility] [place] TF; Pt presented to ED with neurologic symptoms found to have had acute CVA and is currently at nutritional risk r/t failed MBS and possible need for half-way TF. Pt NPO per ST and GI consulted to evaluate pt for PEG placement. When feeding route is established TF recs are as follows; Jevity 1.5 running @ 55ml/hour goal rate to provide 1980kcal, 84g protein and 1003ml free water to best meet pt's assessed nutritional needs. Labs and medications reviewed, will continue to monitor tolerance to TF and clinical course. Recommendations: 1. Jevity 1.5 @ 55ml/hour goal rate Dietitian to Monitor: Lab values, Glucose level, Intake & Output, Tube feeding tolerance, Swallow recommendations, Medical course
--- NOTE | 2018-06-18 15:46 | P.PNIM ---
Subjective Interval history: F/u encephalopathy. Alert and ff commands seen w daughter. Failed MBS for PEG tx to CIR on hold Physical Exam Vital signs: Vital Signs 06/17/18 16:00 06/17/18 16:09 06/17/18 16:10 Temperature 98.7 F Pulse Rate 79 69 72 Respiratory Rate 27 H 25 H 18 Blood Pressure 117/70 117/70 Pulse Oximetry 93 L 06/17/18 16:25 06/17/18 17:00 06/17/18 18:00 Temperature Pulse Rate 74 72 69 Respiratory Rate 24 24 Blood Pressure 112/72 125/70 Pulse Oximetry 06/17/18 19:00 06/17/18 20:00 06/17/18 21:00 Temperature 97.8 F Pulse Rate 68 64 62 Respiratory Rate 22 24 21 Blood Pressure 119/71 126/68 126/68 Pulse Oximetry 98 93 L 94 L 06/17/18 21:19 06/17/18 22:00 06/17/18 23:00 Temperature Pulse Rate 60 70 67 Respiratory Rate 26 H 23 20 Blood Pressure 117/63 118/63 Pulse Oximetry 96 95 94 L 06/18/18 00:00 06/18/18 01:00 06/18/18 02:00 Temperature 98.0 F Pulse Rate 63 62 54 L Respiratory Rate 20 23 19 Blood Pressure 120/68 130/70 112/61 Pulse Oximetry 97 94 L 93 L 06/18/18 03:00 06/18/18 04:00 06/18/18 05:00 Temperature 97.7 F Pulse Rate 60 63 61 Respiratory Rate 22 22 20 Blood Pressure 122/64 130/82 139/75 Pulse Oximetry 94 L 94 L 96 06/18/18 06:00 06/18/18 08:00 06/18/18 10:43 Temperature 98.4 F Pulse Rate 53 L 65 68 Respiratory Rate 18 20 20 Blood Pressure 144/65 H 137/77 Pulse Oximetry 98 95 95 06/18/18 12:00 Temperature 97.7 F Pulse Rate 81 Respiratory Rate 18 Blood Pressure 135/79 Pulse Oximetry 91 L Intake & Output 06/17/18 06/18/18 06/18/18 18:59 06:59 18:59 Intake Total 345 / 345 1240 / 1240 1010 / 1010 Output Total 1450 / 1450 1350 / 1350 Balance -1105 / -1105 -110 / -110 1010 / 1010 Weight 75.5 kg Intake: IV 105 / 105 1210 / 1210 1010 / 1010 D5W/NS + KCL 20 mEq Inj 1,000 1000 / 1000 800 / 800 ML @ 70 mls/hr IV.CONT .[id number] DORIS Rx#:[id number] Keppra Inj 500 MG In NS Inj 100 105 / 105 210 / 210 210 / 210 ML @ 400 mls/hr IV.SIG Q6H DORIS Rx#:[id number] Oral 240 / 240 30 / 30 Output: Urine Amount (Catheter) 1450 / 1450 1350 / 1350 Condom 1450 / 1450 1350 / 1350 Other: Date of Last Bowel Movement 06/14/18 06/18/18 # Incontinent Bowel Movements 1 Narrative: GENERAL: Middle-age male, in no distress CHEST: Equal chest rise. Room air. CARDIOVASCULAR: Normal rate, regular rhythm. Sinus by telemetry. ABDOMEN: Soft, nontender, nondistended. No guarding. MUSCULOSKELETAL: Pulses 2+. No peripheral edema. NEUROLOGICAL: He is awake but remains aphasic moving all extremities except right upper extremity Urinary Catheter Management Straight: Cath placed during this visit: yes, but has since been removed by the nurse Reason for continuing: Not indwelling catheter Insertion date: 06/11/18 Insertion time: 09:15 Removal date: 06/11/18 Removal time: 09:16 Condom: Cath placed during this visit: no Results Labs CBC & Chem 7: 06/18/18 03:26 06/18/18 03:26 Labs: Microbiology 06/15/18 21:40 Blood - Peripheral Aerobic Blood Culture - Preliminary No growth in 3 days 06/15/18 21:40 Blood - Peripheral Anaerobic Blood Culture - Preliminary No growth in 3 days 06/15/18 21:45 Blood - Peripheral Aerobic Blood Culture - Preliminary No growth in 3 days 06/15/18 21:45 Blood - Peripheral Anaerobic Blood Culture - Preliminary No growth in 3 days Imaging Imaging: Impressions Videofluoroscopic Swallow 06/18/18 00:00 CONCLUSION: Aspiration as above. Please see consultation with speech pathology Assessment and Plan (1) Encounter for PEG (percutaneous endoscopic gastrostomy): Code(s): Z43.1 - Encounter for attention to gastrostomy Status: Acute Plan This is a 68-year-old male with acute left M1 MCA CVA and left ICA occlusion. Acute left embolic M1 MCA CVA with left ICA occlusion, Acute encephalopathy and Dense receptive and expressive aphasia. Improving encephalopathy and aphasia. Recent depressed mental status could have been a combination of increased mass- effect seen on head CT, medication effect (Keppra) and seizure Hypertensive Emergency. Improved Frequent neurochecks. Failed MBS for PEG Repeat MRI without significant change Repeat head CT no significant change EEG with no epileptiform activity lipids. Statin based on lipid profile, atorvastatin started (patient on Crestor) A1c 5.7 2D echo, an estimated ejection fraction in the range of 55-60%. 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 Risk factor modification Fever. Workup negative including chest x-ray and urinalysis. Improved follow- up blood cultures. Likely from atelectasis versus PATTERN GRADER insult. We will continue to monitor SCD and early OOB for DVT proph code Status: Full Progress Note: Quality VTE Deep Vein Thrombosis/Pulmonary Embolism Present on Admission: No
--- NOTE | 2018-06-18 20:23 | P.PNNEU ---
Subjective Subjective Comments: no new neuro sx. Active Medications: Active Medications Acetaminophen (Tylenol) 650 mg PO Q6H PRN PRN Reason: TEMPERATURE > 101 F Last Admin: 06/17/18 14:27 Dose: 650 mg Acetaminophen (Tylenol Supp) 650 mg RECTAL Q6H PRN PRN Reason: TEMP >/= 100.5 Last Admin: 06/16/18 17:42 Dose: 650 mg Albuterol (Duoneb Neb (Prn)) 1 ampul NEB Q2HR NEB PRN PRN Reason: WHEEZING Last Admin: 06/16/18 13:06 Dose: 1 ampul Albuterol (Albuterol Neb (Gloria)) 0.63 mg NEB Q6HR NEB [facility] Last Admin: 06/18/18 17:18 Dose: Not Given Allopurinol (Zyloprim) 100 mg PO DAILY [facility] Last Admin: 06/18/18 09:13 Dose: 100 mg Aspirin (Aspirin Supp) 300 mg RECTAL DAILY [facility] Atorvastatin Calcium (Lipitor) 80 mg PO DAILY [facility] Last Admin: 06/18/18 09:13 Dose: 80 mg Bisacodyl (Dulcolax Supp) 10 mg RECTAL DAILY PRN PRN Reason: if no BM in last 24h Clonidine HCl (Catapres) 0.1 mg PO Q6H PRN PRN Reason: SEE LABEL COMMENTS Clotrimazole (Mycelex Elizabeth) 10 mg BUCCAL 5 TIMES A DAY [facility] Stop: 07/01/18 14:01 Last Admin: 06/18/18 17:22 Dose: 10 mg Dexamethasone Sodium Phosphate (Decadron Inj) 4 mg IV.PUSH Q6HR [facility] Last Admin: 06/18/18 17:21 Dose: 4 mg Dextroamphetamine Sulfate (Dextrostat) 10 mg PO BID [facility] Last Admin: 06/18/18 09:12 Dose: 10 mg Dextrose (D50w Vial) 50 ml IV.PUSH UNSCH PRN PRN Reason: PER HYPOGLYCEMIA PROTOCOL Enalaprilat (Vasotec Inj) 1.25 mg IV.PUSH Q6H PRN PRN Reason: SEE LABEL COMMENTS Fenofibrate (Tricor) 145 mg PO DAILY [facility] Last Admin: 06/18/18 09:13 Dose: 145 mg Glucagon (Glucagon Inj) 1 mg OTHER PRN PRN PRN Reason: for Hypoglycemia Protocol Levetiracetam 500 mg/ Sodium (Chloride) 105 mls @ 400 mls/hr IV.SIG Q6H [facility] Last Infusion: 06/18/18 17:40 Dose: Infused Potassium Chloride/Sodium Chloride (Ns + Kcl 20 Meq Inj) 1,000 mls @ 70 mls/hr IV.CONT .[id number] [facility] Last Admin: 06/18/18 14:16 Dose: 70 mls/hr Insulin Human Regular (Novolin R Correctional Sugar Inj) 0 units SQ Q6HR [facility]; Protocol Last Admin: 06/18/18 18:42 Dose: Not Given Lactulose (Lactulose Liq) 30 ml PO BID [facility] Last Admin: 06/18/18 09:13 Dose: 30 ml Ondansetron HCl (Zofran Inj) 4 mg IV.PUSH Q6H PRN PRN Reason: NAUSEA OR VOMITING Oxycodone/Acetaminophen (Percocet 5/325 Mg) 1 tab PO Q12H PRN PRN Reason: PAIN SCALE 1 TO 10 Pantoprazole Sodium (Protonix) 20 mg PO DAILY [facility] Last Admin: 06/18/18 09:13 Dose: 20 mg Polyethylene Glycol (Miralax) 17 gm PO BID [facility] Last Admin: 06/18/18 09:14 Dose: Not Given Potassium Phosphate (K-Phos Original) 500 mg PO BID [facility] Last Admin: 06/18/18 09:13 Dose: 500 mg Senna/Docusate Sodium (Shaunna-Colace) 1 tab PO BID [facility] Last Admin: 06/18/18 09:13 Dose: 1 tab Sodium Chloride (Ns Flush) 2 ml IV.FLUSH BID [facility] Last Admin: 06/18/18 09:14 Dose: 2 ml Sodium Chloride (Ns Flush) 2 ml IV.FLUSH PRN PRN PRN Reason: FLUSH AFTER USING IV ACCESS Vitamin D (Vitamin D3) 5,000 unit PO DAILY [facility] Last Admin: 06/18/18 09:13 Dose: 5,000 unit Allergies/Adverse Reactions: Allergies Allergy/AdvReac Type Severity Reaction Status Date / Time penicillin G Allergy Severe SWELLING Verified 06/11/18 08:40 Physical Exam Vital signs: Vital Signs 06/17/18 21:00 06/17/18 21:19 06/17/18 22:00 Temperature Pulse Rate 62 60 70 Respiratory Rate 21 26 H 23 Blood Pressure 126/68 117/63 Pulse Oximetry 94 L 96 95 06/17/18 23:00 06/18/18 00:00 06/18/18 01:00 Temperature 98.0 F Pulse Rate 67 63 62 Respiratory Rate 20 20 23 Blood Pressure 118/63 120/68 130/70 Pulse Oximetry 94 L 97 94 L 06/18/18 02:00 06/18/18 03:00 06/18/18 04:00 Temperature 97.7 F Pulse Rate 54 L 60 63 Respiratory Rate 19 22 22 Blood Pressure 112/61 122/64 130/82 Pulse Oximetry 93 L 94 L 94 L 06/18/18 05:00 06/18/18 06:00 06/18/18 08:00 Temperature 98.4 F Pulse Rate 61 53 L 65 Respiratory Rate 20 18 20 Blood Pressure 139/75 144/65 H 137/77 Pulse Oximetry 96 98 95 06/18/18 10:43 06/18/18 12:00 06/18/18 16:00 Temperature 97.7 F 98.3 F Pulse Rate 68 81 71 Respiratory Rate 20 18 16 Blood Pressure 135/79 111/53 L Pulse Oximetry 95 91 L 95 Intake & Output 06/18/18 06/18/18 06/19/18 06:59 18:59 06:59 Intake Total 1240 / 1240 1115 / 1115 Output Total 1350 / 1350 Balance -110 / -110 1115 / 1115 Weight 75.5 kg Intake: IV 1210 / 1210 1115 / 1115 D5W/NS + KCL 20 mEq Inj 1,000 1000 / 1000 800 / 800 ML @ 70 mls/hr IV.CONT .[id number] [facility] Rx#:[id number] Keppra Inj 500 MG In NS Inj 100 210 / 210 315 / 315 ML @ 400 mls/hr IV.SIG Q6H [facility] Rx#:[id number] Oral 30 / 30 Output: Urine Amount (Catheter) 1350 / 1350 Condom 1350 / 1350 Other: # Voids 4 Date of Last Bowel Movement 06/18/18 06/18/18 # Bowel Movements 1 # Incontinent Bowel Movements 1 - Routine Neurological Exam alert, global aphasia CN--perrl, RUMN CN 7 MOTOR 1/5 RUE and RLE. 5/5 LUE and LLE - Urinary Catheter Management Straight Cath placed during this visit: yes, but has since been removed by the nurse Reason for continuing: Not indwelling catheter Insertion date: 06/11/18 Insertion time: 09:15 Removal date: 06/11/18 Removal time: 09:16 Condom Cath placed during this visit: no Objective Laboratory Results - last 24 hr 06/18/18 06/18/18 06/18/18 00:09 03:26 03:26 WBC 10.8 RBC 4.79 Hgb 14.8 Hct 43.1 MCV 90.0 MCH 31.0 MCHC 34.4 RDW 13.3 Plt Count 257 MPV 8.6 Neut % (Auto) 87.7 H Lymph % (Auto) 5.8 L [place] % (Auto) 6.4 Eos % (Auto) 0.0 Baso % (Auto) 0.1 Neut # (Auto) 9.5 H Lymph # (Auto) 0.6 L [place] # (Auto) 0.7 Eos # (Auto) 0.0 Baso # (Auto) 0.0 WBC Differential . Differential Comment Auto diff final Sodium 144 Potassium 3.9 Chloride 114 H Carbon Dioxide 22.3 Anion Gap 8 BUN 11 Creatinine 0.71 Estimated GFR Greater than 89 POC Glucose 148 H Random Glucose 134 H Calcium 8.2 L Phosphorus 2.3 L Magnesium 2.2 06/18/18 06/18/18 06/18/18 05:44 12:04 17:28 WBC RBC Hgb Hct MCV MCH MCHC RDW Plt Count MPV Neut % (Auto) Lymph % (Auto) [place] % (Auto) Eos % (Auto) Baso % (Auto) Neut # (Auto) Lymph # (Auto) [place] # (Auto) Eos # (Auto) Baso # (Auto) WBC Differential Differential Comment Sodium Potassium Chloride Carbon Dioxide Anion Gap BUN Creatinine Estimated GFR POC Glucose 149 H 130 H 255 H Random Glucose Calcium Phosphorus Magnesium Microbiology 06/15/18 21:40 Aerobic Blood Culture - Preliminary Blood - Peripheral No growth in 3 days Anaerobic Blood Culture - Preliminary No growth in 3 days 06/15/18 21:45 Aerobic Blood Culture - Preliminary Blood - Peripheral No growth in 3 days Anaerobic Blood Culture - Preliminary No growth in 3 days Review/Management - Diagnosis (1) Acute embolic stroke Code(s): I63.9 - Cerebral infarction, unspecified Status: Acute Current Visit: Yes (2) Dyslipidemia Code(s): E78.5 - Hyperlipidemia, unspecified Status: Acute Current Visit: Yes - Review/Management Plan: L-MCA stroke. left carotid occlusion global aphasia and RHP .. CT over weekend showed increase mass effect. decadron initiated. On keppra for sz prophylaxis
[2018-06-19] MEDS: Insulin NovoLIN Regular Correctional Sugar Inj SQ SCH ×4 (00:42→20:05)
[2018-06-19] MEDS: Clotrimazole 10 MG Troche BUCCAL SCH ×4 (05:02→20:04)
[2018-06-19 06:38] LABS: Anion Gap 7 meq/L (5-15); Carbon Dioxide 22.6 meq/L (21.0-32.0); Chloride 116 meq/L (98-107); Glomerular Filtration Rate Greater Than 89 mL/min (>89); Glucose,Random 108 mg/dL (74-106); Magnesium 2.2 mg/dL (1.5-2.5); Phosphorus 2.9 mg/dL (2.5-4.9); Potassium 4.1 meq/L (3.5-5.1); Sodium 146 meq/L (136-145)
[2018-06-19 06:43] LABS: Blood Urea Nitrogen 17 mg/dL (7-18)
[2018-06-19] MEDS ORDERED: Levofloxacin 250 mg Premix Inj 250 MG/50 ML PIGGYBACK IV.SIG SCH (09:00)
--- NOTE | 2018-06-19 10:35 | P.PNIM ---
Subjective Interval history: Follow-up dysphagia. Currently n.p.o. for PEG discussed with nursing Physical Exam Vital signs: Vital Signs 06/18/18 10:43 06/18/18 12:00 06/18/18 16:00 Temperature 97.7 F 98.3 F Pulse Rate 68 81 71 Respiratory Rate 20 18 16 Blood Pressure 135/79 111/53 L Pulse Oximetry 95 91 L 95 06/18/18 20:00 06/18/18 21:13 06/18/18 21:14 Temperature 98.8 F Pulse Rate 85 87 Respiratory Rate 21 18 Blood Pressure 121/72 Pulse Oximetry 95 06/19/18 00:00 06/19/18 04:00 06/19/18 07:30 Temperature 97.4 F L 98.5 F 98.2 F Pulse Rate 104 H 104 H 55 L Respiratory Rate 18 18 20 Blood Pressure 139/80 142/78 H 161/73 H Pulse Oximetry 97 93 L 95 06/19/18 09:23 Temperature Pulse Rate Respiratory Rate Blood Pressure Pulse Oximetry 93 L Intake & Output 06/18/18 06/19/18 06/19/18 18:59 06:59 18:59 Intake Total 1115 / 1115 1610 / 1610 Balance 1115 / 1115 1610 / 1610 Weight 75.5 kg Intake: IV 1115 / 1115 1210 / 1210 D5W/NS + KCL 20 mEq Inj 1,000 800 / 800 ML @ 70 mls/hr IV.CONT .[id number] [facility] Rx#:[id number] NS + KCl 20 mEq Inj 1,000 ML @ 1000 / 1000 70 mls/hr IV.CONT .[id number] [facility] Rx#:[id number] Keppra Inj 500 MG In NS Inj 100 315 / 315 210 / 210 ML @ 400 mls/hr IV.SIG Q6H [facility] Rx#:[id number] Oral 400 / 400 Other: # Voids 4 # Incontinent Voids 2 Date of Last Bowel Movement 06/18/18 # Bowel Movements 1 Narrative: GENERAL: Middle-age male, in no distress CHEST: Equal chest rise. Room air. CARDIOVASCULAR: Normal rate, regular rhythm. Sinus by telemetry. ABDOMEN: Soft, nontender, nondistended. No guarding. MUSCULOSKELETAL: Pulses 2+. No peripheral edema. NEUROLOGICAL: He is awake but remains aphasic moving all extremities except right upper extremity Urinary Catheter Management Straight: Cath placed during this visit: yes, but has since been removed by the nurse Reason for continuing: Not indwelling catheter Insertion date: 06/11/18 Insertion time: 09:15 Removal date: 06/11/18 Removal time: 09:16 Condom: Cath placed during this visit: no Results Labs CBC & Chem 7: 06/18/18 03:26 06/19/18 05:50 Labs: Microbiology 06/15/18 21:40 Blood - Peripheral Aerobic Blood Culture - Preliminary No growth in 3 days 06/15/18 21:40 Blood - Peripheral Anaerobic Blood Culture - Preliminary No growth in 3 days 06/15/18 21:45 Blood - Peripheral Aerobic Blood Culture - Preliminary No growth in 3 days 06/15/18 21:45 Blood - Peripheral Anaerobic Blood Culture - Preliminary No growth in 3 days Assessment and Plan (1) Acute embolic stroke: Code(s): I63.9 - Cerebral infarction, unspecified Status: Acute (2) Dyslipidemia: Code(s): E78.5 - Hyperlipidemia, unspecified Status: Acute Plan This is a 68-year-old male with acute left M1 MCA CVA and left ICA occlusion. Acute left embolic M1 MCA CVA with left ICA occlusion, Acute encephalopathy and Dense receptive and expressive aphasia. Improving encephalopathy and aphasia. Recent depressed mental status could have been a combination of increased mass- effect seen on head CT, medication effect (Keppra) and seizure Hypertensive Emergency. Improved Frequent neurochecks. Failed MBS for PEG today Repeat MRI without significant change Repeat head CT no significant change EEG with no epileptiform activity lipids. Statin based on lipid profile, atorvastatin started (patient on Crestor) A1c 5.7 2D echo, an estimated ejection fraction in the range of 55-60%. 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 Risk factor modification Fever. Workup negative including chest x-ray and urinalysis. Improved follow- up blood cultures. Likely from atelectasis versus [employer] insult. We will continue to monitor SCD and early OOB for DVT proph code Status: Full Possible discharge to [place] after bagging when cleared by GI Progress Note: Quality VTE Deep Vein Thrombosis/Pulmonary Embolism Present on Admission: No
[2018-06-19] MEDS: Sodium Chloride 0.9% 2 ML Flush BID IV.FLUSH SCH (11:11)
[2018-06-19] MEDS ORDERED: Lidocaine PF 1% Inj 5 ML Syringe OTHER ONE (11:12)
[2018-06-19] MEDS ORDERED: Succinylcholine Inj 100 MG/5 ML Syringe IV.PUSH ONE (11:12)
--- NOTE | 2018-06-19 12:05 | GIPROC ---
[facility] [address] [facility]. [facility], [id number] EGD PROCEDURE REPORT EXAM DATE: 06/19/2018 PATIENT NAME: Vitor Gooden MR #: [id number] BIRTHDATE: 1950 ATTENDING: Quinn Hood MD ORDER #: [id number] FASHION EDITOR: Vidya Street and Scott Farrar STATUS: inpatient INDICATIONS: The patient is a 68 yr old male here for an EGD due to CVA,transfer dysphagia PROCEDURE PERFORMED: EGD w/ percutaneous gastrostomy tube placement MEDICATIONS: Per Anesthesia and None. TOPICAL ANESTHETIC: none CONSENT: The patient understands the risks and benefits of the procedure and understands that these risks include, but are not limited to: sedation, allergic reaction, infection, perforation and/or bleeding. Alternative means of evaluation and treatment include, among others: physical exam, x-rays, and/or surgical intervention. The patient elects to proceed with this endoscopic procedure. medical equipment was checked for proper function. Hand hygiene and appropriate measures for infection prevention was taken. After the risks, benefits and alternatives of the procedure were thoroughly explained, Informed consent was verified, confirmed and timeout was successfully executed by the treatment team. The patient was anesthetized with topical anesthesia and the Pentax [id number] endoscope was introduced through the mouth and advanced to the second portion of the duodenum.Stomach distented withair . Spot marked in LUQ. Site infilterated with Lidocaine. 1 cm incision made. Trocar passed through incision .GW passedtrough the the outer plastic sheath.GW grabbed with snare passed through scope. Scope pulled out GW knotted woth GW and pulled out through the abdominal incision.Proper placement confirmed endoscopically. Retroflexed views revealed no abnormalities The gastroscope was then slowly withdrawn and removed. ESOPHAGUS: The mucosa of the esophagus appeared normal. STOMACH: The mucosa of the stomach appeared normal. DUODENUM: The duodenal mucosa appeared normal in the entire duodenum. ADVERSE EVENTS: There were no complications. IMPRESSIONS: 1. The esophagus appeared normal 2. The mucosa of the stomach appeared normal 3. Normal duodenal mucosa in the entire duodenum 4. Retroflexed views revealed no abnormalities 5. PEG placement RECOMMENDATIONS: Start tube feeding after 4 hr PATIENT CONDITION: stable DISPOSITION: Inpatient REPEAT EXAM: Return as needed for EGD Quinn Hood MD eSigned: Quinn Hood MD 06/19/2018 12:04 PM cc: PATIENT NAME: Vitor Gooden MR#: [id number]
[2018-06-19] MEDS ORDERED: Naloxone Inj 0.4 MG/ML Vial IV.PUSH PRN (14:20)
[2018-06-19] MEDS ORDERED: Morphine Inj 4 MG/ML Vial IV.PUSH PRN (14:20)
[2018-06-19] MEDS: Senna/Docusate Sodium 8.6/50 MG Tablet PO SCH (14:27)
[2018-06-19] MEDS: Polyethylene Glycol 3350 17 GM Packet PO SCH (14:27)
[2018-06-19] MEDS: Potassium Phosphate 500 MG Soluble Tablet PO SCH (14:27)
[2018-06-19] MEDS: Fenofibrate 145 MG Tablet PO SCH (14:28)
[2018-06-19] MEDS: Allopurinol 100 MG Tablet PO SCH (14:28)
[2018-06-19] MEDS: Pantoprazole Sodium 20 MG DR Tablet PO SCH (14:28)
--- NOTE | 2018-06-19 16:58 | CT ---
EXAM DATE: 06/19/2018 4:54 PM EST AGE/SEX: 68 years / Male INDICATIONS: Altered mental status. CLINICAL DATA: This is the patient's initial encounter. Patient reports that signs and symptoms have been present for 1 day and indicates a pain score of Nonresponsive. MEDICAL/SURGICAL HISTORY: Chronic obstructive pulmonary disease. Rheumatoid arthritis. . Back surg sukhjinder. RADIATION DOSE: 56.35 CTDI (mGy) COMPARISON: [facility] [place], CT HEAD W/O CONTRAST, 06/17/2018. . TECHNIQUE: CT of the head without contrast. Using automated exposure control and adjustment of the mA and/or kV according to patient size, radiation dose was kept as low as reasonably achievable to ob tain optimal diagnostic quality images. DICOM format image data is available electronically for revi ew and comparison. FINDINGS: Cerebrum: There is a large evolving stroke involving the left temporal lobe and portions of the left frontal lobe. The low density area measures 7.7 x 5.7 cm across. I don't see any areas of hemorrhage . There does appear to be some mild mass effect upon the left lateral ventricle. Posterior Fossa: The cerebellum and brainstem are intact. The 4th ventricle is midline. The cerebe llopontine angle is unremarkable. Extracranial: The visualized portion of the orbits is intact. Skull: The calvaria is intact. No evidence of skull fracture. CONCLUSION: 1. Continued evolution of a large left frontotemporal stroke without evidence of hemorrhage or signi ficant extension since the study on the . . . Electronically signed by: Miguel Leon MD Board Certified Radiologist 06/19/2018 4:57 PM EST
--- NOTE | 2018-06-19 17:04 | CT ---
EXAM DATE: 06/19/2018 4:53 PM EST AGE/SEX: 68 years / Male INDICATIONS: Status post peg tube placement. CLINICAL DATA: This is the patient's initial encounter. Patient reports that signs and symptoms have been present for 1 day and indicates a pain score of Nonresponsive. MEDICAL/SURGICAL HISTORY: Chronic obstructive pulmonary disease. Rheumatoid arthritis. . Back surgery. ORAL CONTRAST: No oral contrast ingested. RADIATION DOSE: 10.52 CTDI (mGy) COMPARISON: No prior exams available for comparison. TECHNIQUE: Multiple contiguous axial images were obtained through the abdomen. Images were obtained using multiple row detector helical technique. No oral contrast ingested. Using automated exposure co ntrol and adjustment of the mA and/or kV according to patient size, radiation dose was kept as low as reasonably achievable to obtain optimal diagnostic quality images. DICOM format image data is avail able electronically for review and comparison. FINDINGS: There is retained barium contrast throughout the colon causing beam hardening artifact and obscuration of some of the surrounding structures. Lower chest: There is respiratory motion artifact at the lung bases. Dependent atelectasis is present bilaterally. No acute abnormality is seen. Hepatobiliary: Liver density is normal. No focal lesion is identified on this noncontrast examination . No calcified gallstones are present. Kidneys: No hydronephrosis, stone, or mass. Adrenal Glands: Within normal limits. Spleen: Within normal limits. Pancreas: Visualized portions of the pancreas demonstrate no definite abnormality. Vascular: The aorta is nonaneurysmal. There is moderate atherosclerotic disease. Bowel/Mesentery: There is a PEG tube in the inferior/distal gastric body. Small bowel demonstrates no acute finding but is distended with air. There is sigmoid diverticulosis. The colon contains high de nsity barium causing beam hardening artifact. No free intraperitoneal air or fluid is present. Abdominal Wall: No hernia is visualized. Retroperitoneum: No lymphadenopathy. Bladder: No wall thickening or mass. Reproductive: Within normal limits. Inguinal: No lymphadenopathy or hernia. Musculoskeletal: No acute osseous abnormality is identified. There is dextroscoliosis of the lumbar s pine with degenerative change. CONCLUSION: 1. The PEG tube appears to be in the distal gastric body. There is no free intraperitoneal air or ac xander abnormality. 2. Otherwise, no acute finding is identified. There is retained barium contrast throughout the colon causing beam hardening artifact and obscuration of the surrounding structures. Electronically signed by: Johnnie Guillermo MD Board Certified Radiologist 06/19/2018 5:03 PM EST
[2018-06-20] MEDS: Potassium Phosphate 500 MG Soluble Tablet PO SCH ×3 (03:25→21:58)
[2018-06-20] MEDS: Clotrimazole 10 MG Troche BUCCAL SCH ×6 (03:26→22:00)
[2018-06-20] MEDS: Sodium Chloride 0.9% 2 ML Flush BID IV.FLUSH SCH ×3 (03:26→22:03)
[2018-06-20] MEDS: Senna/Docusate Sodium 8.6/50 MG Tablet PO SCH ×3 (03:26→22:00)
[2018-06-20] MEDS: Polyethylene Glycol 3350 17 GM Packet PO SCH ×3 (03:26→22:02)
[2018-06-20] MEDS: Insulin NovoLIN Regular Correctional Sugar Inj SQ SCH ×4 (03:27→18:11)
[2018-06-20 03:59] LABS: Baso % (Auto) 0.1 % (0.0-2.0); Hematocrit 41.8 % (39.0-51.0); Hemoglobin 14.2 gm/dL (13.0-17.0); Lymph # (Auto) 0.9 th/mm3 (1.0-4.8); Lymph % (Auto) 6.8 % (9.0-44.0); Mean Corpuscular HGB Conc 33.9 % (32.0-36.0); Mean Corpuscular Volume 91.4 fL (80.0-100.0); Mean Platelet Volume 8.4 fL (7.0-11.0); Mono # (Auto) 0.7 th/mm3 (0.0-0.9); Mono % (Auto) 5.6 % (0.0-8.0); Neut # (Auto) 11.3 th/mm3 (1.8-7.7); Neut % (Auto) 87.5 % (16.0-70.0); Platelet Count 262 th/mm3 (150-450); Red Blood Count 4.58 mil/mm3 (4.50-5.90); Red Cell Distribution Width 13.1 % (11.6-17.2); White Blood Count 12.9 th/mm3 (4.0-11.0)
[2018-06-20 04:23] LABS: Albumin 2.7 g/dL (3.4-5.0); Anion Gap 8 meq/L (5-15); Aspartate Aminotransferase 16 U/L (15-37); Blood Urea Nitrogen 16 mg/dL (7-18); Carbon Dioxide 24.2 meq/L (21.0-32.0); Chloride 112 meq/L (98-107); Glomerular Filtration Rate Greater Than 89 mL/min (>89); Glucose,Random 120 mg/dL (74-106); Potassium 3.9 meq/L (3.5-5.1); Sodium 144 meq/L (136-145)
[2018-06-20 04:24] LABS: Alanine Aminotransferase 18 U/L (12-78)
[2018-06-20 04:26] LABS: Alkaline Phosphatase 61 U/L (45-117)
[2018-06-20] MEDS: Allopurinol 100 MG Tablet PO SCH (09:38)
[2018-06-20] MEDS: Fenofibrate 145 MG Tablet PO SCH (09:39)
[2018-06-20] MEDS: Pantoprazole Sodium 20 MG DR Tablet PO SCH (09:40)
[2018-06-20] MEDS: Aspirin 300 MG Supp RECTAL SCH (09:54)
--- NOTE | 2018-06-20 11:51 | P.PNIM ---
Subjective Interval history: Follow-up PEG. Miserable today because of pain over G-tube site. He is also having hiccups. GI alerted. Follow-up CT of the abdomen without significant change Physical Exam Vital signs: Vital Signs 06/19/18 12:09 06/19/18 12:15 06/19/18 12:30 Temperature 97.5 F L Pulse Rate 77 74 65 Respiratory Rate 17 20 22 Blood Pressure 128/76 132/77 138/80 Pulse Oximetry 92 L 95 95 06/19/18 12:45 06/19/18 15:03 06/19/18 15:50 Temperature 97.5 F L 97.6 F 98.4 F Pulse Rate 60 115 H 60 Respiratory Rate 22 22 20 Blood Pressure 157/85 H 161/83 H 164/80 H Pulse Oximetry 97 96 98 06/19/18 16:00 06/19/18 19:50 06/20/18 00:25 Temperature Pulse Rate 78 80 Respiratory Rate 18 18 18 Blood Pressure 140/95 H 147/84 H Pulse Oximetry 92 L 93 L 06/20/18 04:35 06/20/18 08:00 Temperature 98.9 F Pulse Rate 82 61 Respiratory Rate 18 18 Blood Pressure 162/81 H 160/86 H Pulse Oximetry 94 L 92 L Intake & Output 06/19/18 06/20/18 06/20/18 18:59 06:59 18:59 Intake Total 1405 / 1405 315 / 315 600 / 600 Output Total 500 / 500 Balance 905 / 905 315 / 315 600 / 600 Intake: IV 1105 / 1105 315 / 315 600 / 600 NS + KCl 20 mEq Inj 1,000 ML @ 1000 / 1000 600 / 600 70 mls/hr IV.CONT .[id number] [facility] Rx#:[id number] Keppra Inj 500 MG In NS Inj 100 105 / 105 315 / 315 ML @ 400 mls/hr IV.SIG Q6H [facility] Rx#:[id number] Anesthesia Amount 300 / 300 Output: Urine 500 / 500 Other: # Voids 4 # Incontinent Voids 2 2 Date of Last Bowel Movement 06/19/18 06/19/18 # Incontinent Bowel Movements 1 Narrative: GENERAL: Middle-age male, in distress due to pain over PEG. Having hiccups CHEST: Equal chest rise. Room air. CARDIOVASCULAR: Normal rate, regular rhythm. Sinus by telemetry. ABDOMEN: Soft, tender over PEG, nondistended. No guarding. MUSCULOSKELETAL: Pulses 2+. No peripheral edema. NEUROLOGICAL: He is awake but remains aphasic moving all extremities except right upper extremity Urinary Catheter Management Straight: Cath placed during this visit: yes, but has since been removed by the nurse Reason for continuing: Not indwelling catheter Insertion date: 06/11/18 Insertion time: 09:15 Removal date: 06/11/18 Removal time: 09:16 Condom: Cath placed during this visit: no Results Labs CBC & Chem 7: 06/20/18 03:24 06/20/18 03:24 Labs: Microbiology 06/15/18 21:40 Blood - Peripheral Aerobic Blood Culture - Final No growth in 5 days 06/15/18 21:40 Blood - Peripheral Anaerobic Blood Culture - Final No growth in 5 days 06/15/18 21:45 Blood - Peripheral Aerobic Blood Culture - Final No growth in 5 days 06/15/18 21:45 Blood - Peripheral Anaerobic Blood Culture - Final No growth in 5 days Imaging Imaging: ITS Impressions Cerebral Angiography 06/11/18 00:00 CONCLUSION: 1. Acute occlusion on chronic critical stenosis of the left internal carotid at its origin. The patient is not a candidate for embolectomy. Head CTA 06/11/18 08:28 CONCLUSION: 1. Embolic occlusion on the left. CT suggests an older stroke then suggested by history. Report was called by Dr. Ring at 0905 AM. Neck CTA 06/11/18 08:28 CONCLUSION: 1. 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 Ring at [address] CAD 06/11/18 08:29 CONCLUSION: Physiological brain perfusion parameters with RAPID analysis as above. The decision for consideration of therapy is multi factorial and multi disciplinary relying on subjective and objective clinical data. This data is not construed or intended to be the sole determinant of treatment eligibility. Head MRI 06/15/18 16:02 CONCLUSION: 1. Left MCA infarct noted. There is mild mass effect on the frontal horn of the left lateral ventricle. 1 mm left to right shift. Chest X-Ray 06/16/18 00:00 CONCLUSION: The lungs are clear. Videofluoroscopic Swallow 06/18/18 00:00 CONCLUSION: Aspiration as above. Please see consultation with speech pathology Abdomen CT 06/19/18 00:00 CONCLUSION: 1. The PEG tube appears to be in the distal gastric body. There is no free intraperitoneal air or acute abnormality. 2. Otherwise, no acute finding is identified. There is retained barium contrast throughout the colon causing beam hardening artifact and obscuration of the surrounding structures. Head CT 06/19/18 00:00 CONCLUSION: 1. Continued evolution of a large left frontotemporal stroke without evidence of hemorrhage or significant extension since the study on the . . Procedures Procedures: PEG Assessment and Plan (1) Acute embolic stroke: Code(s): I63.9 - Cerebral infarction, unspecified Status: Acute (2) Dyslipidemia: Code(s): E78.5 - Hyperlipidemia, unspecified Status: Acute Plan This is a 68-year-old male with acute left M1 MCA CVA and left ICA occlusion. Acute left embolic M1 MCA CVA with left ICA occlusion, Acute encephalopathy and Dense receptive and expressive aphasia. Improving encephalopathy and aphasia. Recent depressed mental status could have been a combination of increased mass- effect seen on head CT, medication effect (Keppra) and seizure Hypertensive Emergency. Improved Frequent neurochecks. Failed MBS s/p PEG, ct TF as tolerated Repeat MRI without significant change Repeat head CT no significant change EEG with no epileptiform activity lipids. Statin based on lipid profile, atorvastatin started (patient on Crestor) A1c 5.7 2D echo, an estimated ejection fraction in the range of 55-60%. 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 Risk factor modification Epig pain and hiccups s/p PEG. Abdominal CT shows PEG in the distal gastric body. No free intraperitoneal air or acute abnormality. Continue pain management and start chlorpromazine. Follow-up GI fever. Workup negative including chest x-ray and urinalysis. Improved follow- up blood cultures. Likely from atelectasis versus ELECTRICIAN LOCOMOTIVE insult. We will continue to monitor SCD and early OOB for DVT proph code Status: Full Progress Note: Quality VTE Deep Vein Thrombosis/Pulmonary Embolism Present on Admission: No
--- NOTE | 2018-06-20 14:18 | P.PNGI ---
Subjective Interval history: pt grimacing and keep on pulling on his left side per bedside RN frequent hiccups noted was given Miralax and Bentyl yesterday as CT shows Barium in the colon s/p PEG tube placement Physical Exam Vital signs: Vital Signs 06/19/18 15:03 06/19/18 15:50 06/19/18 16:00 Temperature 97.6 F 98.4 F Pulse Rate 115 H 60 Respiratory Rate 22 20 18 Blood Pressure 161/83 H 164/80 H Pulse Oximetry 96 98 06/19/18 19:50 06/20/18 00:25 06/20/18 04:35 Temperature Pulse Rate 78 80 82 Respiratory Rate 18 18 18 Blood Pressure 140/95 H 147/84 H 162/81 H Pulse Oximetry 92 L 93 L 94 L 06/20/18 08:00 06/20/18 12:00 Temperature 98.9 F 97.4 F L Pulse Rate 61 66 Respiratory Rate 18 18 Blood Pressure 160/86 H 173/97 H Pulse Oximetry 92 L 93 L Intake & Output 06/19/18 06/20/18 06/20/18 18:59 06:59 18:59 Intake Total 1405 / 1405 315 / 315 705 / 705 Output Total 500 / 500 Balance 905 / 905 315 / 315 705 / 705 Intake: IV 1105 / 1105 315 / 315 705 / 705 NS + KCl 20 mEq Inj 1,000 ML @ 1000 / 1000 600 / 600 70 mls/hr IV.CONT .[id number] [facility] Rx#:[id number] Keppra Inj 500 MG In NS Inj 100 105 / 105 315 / 315 105 / 105 ML @ 400 mls/hr IV.SIG Q6H [facility] Rx#:[id number] Anesthesia Amount 300 / 300 Output: Urine 500 / 500 Other: # Voids 4 # Incontinent Voids 2 2 Date of Last Bowel Movement 06/19/18 06/19/18 # Incontinent Bowel Movements 1 - Constitutional moderate distress - Routine HEENT Exam Head: Present: normocephalic, atraumatic - Routine Neck Exam Present: supple - Routine Respiratory Exam Present: CTA bilaterally - Routine Cardiovascular Exam Present: RRR, S1, S2 - Routine Abdominal Exam Present: soft, normoactive bowel sounds, tenderness. Absent: distended Comments: PEG tube in use - Routine Extremities Exam Present: pulses intact, normal capillary refill - Routine Skin Exam Present: intact - Routine Neurological Exam Present: alert, altered mental status s/p CVA with vascular dementia - Urinary Catheter Management Straight Cath placed during this visit: yes, but has since been removed by the nurse Reason for continuing: Not indwelling catheter Insertion date: 06/11/18 Insertion time: 09:15 Removal date: 06/11/18 Removal time: 09:16 Condom Cath placed during this visit: no Results - Labs CBC & Chem 7: 06/20/18 03:24 06/20/18 03:24 Laboratory Results - last 24 hr 06/19/18 06/19/18 06/20/18 17:58 23:24 03:24 WBC RBC Hgb Hct MCV MCH MCHC RDW Plt Count MPV Neut % (Auto) Lymph % (Auto) [place] % (Auto) Eos % (Auto) Baso % (Auto) Neut # (Auto) Lymph # (Auto) [place] # (Auto) Eos # (Auto) Baso # (Auto) WBC Differential Differential Comment Sodium 144 Potassium 3.9 Chloride 112 H Carbon Dioxide 24.2 Anion Gap 8 BUN 16 Creatinine 0.79 Estimated GFR Greater than 89 POC Glucose 97 132 H Random Glucose 120 H Calcium 8.0 L Total Bilirubin 0.5 AST 16 ALT 18 Alkaline Phosphatase 61 Total Protein 6.0 L Albumin 2.7 L 06/20/18 06/20/18 06/20/18 03:24 06:28 11:42 WBC 12.9 H RBC 4.58 Hgb 14.2 Hct 41.8 MCV 91.4 MCH 31.0 MCHC 33.9 RDW 13.1 Plt Count 262 MPV 8.4 Neut % (Auto) 87.5 H Lymph % (Auto) 6.8 L [place] % (Auto) 5.6 Eos % (Auto) 0.0 Baso % (Auto) 0.1 Neut # (Auto) 11.3 H Lymph # (Auto) 0.9 L [place] # (Auto) 0.7 Eos # (Auto) 0.0 Baso # (Auto) 0.0 WBC Differential . Differential Comment Auto diff final Sodium Potassium Chloride Carbon Dioxide Anion Gap BUN Creatinine Estimated GFR POC Glucose 114 H 127 H Random Glucose Calcium Total Bilirubin AST ALT Alkaline Phosphatase Total Protein Albumin Microbiology 06/15/18 21:40 Blood - Peripheral Aerobic Blood Culture - Final No growth in 5 days 06/15/18 21:40 Blood - Peripheral Anaerobic Blood Culture - Final No growth in 5 days 06/15/18 21:45 Blood - Peripheral Aerobic Blood Culture - Final No growth in 5 days 06/15/18 21:45 Blood - Peripheral Anaerobic Blood Culture - Final No growth in 5 days - Imaging Impressions Abdomen CT 06/19/18 00:00 CONCLUSION: 1. The PEG tube appears to be in the distal gastric body. There is no free intraperitoneal air or acute abnormality. 2. Otherwise, no acute finding is identified. There is retained barium contrast throughout the colon causing beam hardening artifact and obscuration of the surrounding structures. Head CT 06/19/18 00:00 CONCLUSION: 1. Continued evolution of a large left frontotemporal stroke without evidence of hemorrhage or significant extension since the study on the . . . - Procedures PEG Assessment and Plan (1) Encounter for PEG (percutaneous endoscopic gastrostomy) Status: Acute Code(s): Z43.1 - Encounter for attention to gastrostomy (2) Acute embolic stroke Status: Acute Code(s): I63.9 - Cerebral infarction, unspecified - Plan Patient is a pleasant 68-year-old male with past medical history of COPD, arthritis and hyperlipidemia. Surgical history significant for back surgery. Patient presented to [facility] emergency room with new onset of altered mental status. Upon consultation, patient's daughter available to provide history to comprise history of present illness. She reports that one week ago patient was found by his son at home and noted to be slumped over. She states patient's son had called him earlier that morning and noted that his speech was slurred and garbled. Upon arrival to emergency room, patient was noted to have a large clot-with subacute infarct involving a large portion of the left anterior region extending into the head of the caudate and basal ganglia involving both limbs and internal capsule without hemorrhage. CTA on stroke alert revealed occluded left internal carotid bifurcation skull base. Patient was admitted to ICU to undergo continuing observation with physical therapy and speech therapy. Patient was transferred out of ICU and taken to the neurology unit where he sustained a fall and became lethargic. MRI at that time revealed increased swelling with no active bleeding. CT brain on 06/17/2018 showed no significant change or increase in swelling. Patient currently receiving Keppra and Decadron. Modified barium swallow study with speech include recommendations for n.p.o. due to severe pharyngeal dysphasia with recurring aspiration of all consistencies attempted during the study. Our service has been consulted to evaluate patient for PEG tube placement for which patient's daughter states family members verbalized understanding and are consenting to. PEG tube placement Patient post embolic stroke 06/11/2018 06/18/2018 modified barium swallow- N.P.O UNABLE TO RECOMMEND ANY SAFE PO CONSISTENCY DUE TO FREQUENCY OF AIRWAY PENETRATION AND ASPIRATION EVENTS OBSERVED DURING THIS STUDY. MAY NEED TO CONSIDER POSSIBLE PLACEMENT OF [facility] NON-ORAL MEANS OF NUTRITION SUCH PEG TUBE. CONTINUE DYSPHAGIA THERAPY WITH SPEECH PATHOLOGY WBC 10.8 hemoglobin 14.8 hematocrit 43.1 platelet count 257 INR 1.0 06/20/2018 Assessment s/p PEG tube placement yesterday - developed abdominal pain, CT done showed no free air but several barium in the colon Frequent Hiccups Leukocytosis -Patient is s/p CVA with right-sided weakness who failed swallowing eval and needs long-term and enteral feeding. Status post PEG tube placement. Patient' s abdominal pain is controlled now with pain medicine. Patient's hiccups have subsided after initial dose of chlorpromazine. We will do ultrasound of the abdomen to rule out hematoma at the insertion site. Today's lab WBC 12.9 hemoglobin 14.2 hematocrit 41.8 platelet 262 Plan N.p.o. ok to start Tube feeding per dietary recommendations Monitor labs Pls give Miralax per PEG to get rid of the remaining Barium in the colon Bentyl for abd spasm Chlorpromazine for hiccups otherwise may use Phenergan 2.5 mg as needed Toradol IV for pain We will order ultrasound of abdominal wall rule out hematoma from the PEG site Initially recommends for ID consult with the increasing WBC, case discussed with Dr. Rodriguez patient is on steroids for respiratory issues and PEG tube was displaced yesterday and leukocytosis might just be reactive. No indications for giving antibiotics at this time. We will check CBC in the morning. Supportive care Further recommendations to follow This patient has been seen by myself and Dr. Hood and this note is written on his behalf - Attending Attestation Dr Hood
[2018-06-20] MEDS: ChlorproMAZINE 25 MG Tablet G-TUBE SCH ×2 (14:40→18:10)
[2018-06-20] MEDS ORDERED: Ketorolac Inj 30 MG/ML (IVP) Vial IV.PUSH PRN (18:05)
--- NOTE | 2018-06-20 19:47 | US ---
EXAM DATE: 06/20/2018 7:43 PM EST AGE/SEX: 68 years / Male INDICATIONS: Abdominal pain. CLINICAL DATA: This is the patient's initial encounter. Patient reports that signs and symptoms have been present for 1 day and indicates a pain score of 8/10. MEDICAL/SURGICAL HISTORY: Arthritis. Chronic obstructive pulmonary disease. Hyperlipidemia. . History of Back surgery. COMPARISON: [facility] – [place] ABDOMEN W/O CONTRAST, 06/19/2018. . MEASUREMENTS: Liver:__ 15.6 cm. Common Bile Duct:___ 3mm. Right Kidney:___8.7 x 5.8 x 4.3 cm. Left Kidney:___9.6 x 6.6 x 5.5 cm. Spleen:___11.9 cm. FINDINGS: Liver: Increased echogenicity without focal lesion or ductal dilatation. Portal Vein: Hepatopedal flow seen in portal vein. Common Duct: No intraluminal mass or stone visualized. Gallbladder: There is echogenic sludge. The gallbladder with gallbladder wall thickening measuring up to 5 mm. No significant pericholecystic fluid. No sonographic Sams sign. Pancreas: Not well visualized. Right Kidney: Normal echogenicity and cortical thickness. No mass or hydronephrosis. Left Kidney: Normal echogenicity and cortical thickness. No mass or hydronephrosis. Ascites: None Pleural Effusion: None Spleen: No focal lesion. Aorta: Non aneurysmal. IVC: Within normal limits Other: None. CONCLUSION: 1. Echogenic liver consistent with hepatic steatosis versus medical liver disease. 2. Gallbladder sludge with nonspecific mild gallbladder wall thickening. 3. Pancreas not well demonstrated. Electronically signed by: Hamzah Irby MD Board Certified Radiologist 06/20/2018 7:46 PM EST
[2018-06-21] MEDS: ChlorproMAZINE 25 MG Tablet G-TUBE SCH ×3 (00:14→12:38)
[2018-06-21] MEDS: Insulin NovoLIN Regular Correctional Sugar Inj SQ SCH ×3 (00:15→12:52)
[2018-06-21] MEDS: Clotrimazole 10 MG Troche BUCCAL SCH ×2 (05:30→10:27)
[2018-06-21] MEDS: Potassium Phosphate 500 MG Soluble Tablet PO SCH (10:23)
[2018-06-21] MEDS: Fenofibrate 145 MG Tablet PO SCH (10:23)
[2018-06-21] MEDS: Allopurinol 100 MG Tablet PO SCH (10:23)
[2018-06-21] MEDS: Pantoprazole Sodium 20 MG DR Tablet PO SCH (10:24)
[2018-06-21] MEDS: Senna/Docusate Sodium 8.6/50 MG Tablet PO SCH (10:24)
[2018-06-21] MEDS: Polyethylene Glycol 3350 17 GM Packet PO SCH (10:24)
[2018-06-21] MEDS: Aspirin 300 MG Supp RECTAL SCH (10:25)
[2018-06-21] MEDS: Sodium Chloride 0.9% 2 ML Flush BID IV.FLUSH SCH (10:26)
--- NOTE | 2018-06-21 11:19 | P.PNGI ---
Subjective Interval history: Patient resting soundly with eyes closed Awakens easily No hiccups noted at this time Mild discomfort on palpation during exam No acute distress Physical Exam Vital signs: Vital Signs 06/20/18 12:00 06/20/18 16:00 06/20/18 19:12 Temperature 97.4 F L 98.2 F 98.6 F Pulse Rate 66 71 90 Respiratory Rate 18 18 16 Blood Pressure 173/97 H 152/87 H 119/78 Pulse Oximetry 93 L 91 L 91 L 06/21/18 03:56 06/21/18 03:57 06/21/18 08:00 Temperature 97.6 F Pulse Rate 60 77 Respiratory Rate 21 16 Blood Pressure 116/70 Pulse Oximetry 97 92 L 06/21/18 09:09 06/21/18 09:10 Temperature Pulse Rate Respiratory Rate Blood Pressure Pulse Oximetry 97 97 Intake & Output 06/20/18 06/21/18 06/21/18 18:59 06:59 18:59 Intake Total 1072 / 1072 105 / 105 Balance 1072 / 1072 105 / 105 Intake: IV 705 / 705 105 / 105 NS + KCl 20 mEq Inj 1,000 ML @ 600 / 600 70 mls/hr IV.CONT .[id number] [facility] Rx#:[id number] Keppra Inj 500 MG In NS Inj 100 105 / 105 105 / 105 ML @ 400 mls/hr IV.SIG Q12H [facility] Rx#:[id number] Tube Feeding 187 / 187 Tube Irrigant 180 / 180 Other: # Incontinent Voids 3 Date of Last Bowel Movement 06/19/18 - Constitutional chronically ill appearing, cooperative - Routine HEENT Exam Head: Present: normocephalic, atraumatic ENT: Present: mucous membranes moist - Routine Neck Exam Present: supple - Routine Respiratory Exam Absent: accessory muscle use - Routine Cardiovascular Exam Present: RRR, S1, S2 - Routine Abdominal Exam Present: soft, normoactive bowel sounds, tenderness, ostomy. Absent: distended , guarding, firm Comments: Gastrostomy tube present No redness or drainage or any sign of infection - Routine Extremities Exam Present: pulses intact. Absent: edema - Routine Skin Exam Present: dry, warm. Absent: pallor - Routine Neurological Exam Present: alert Aphasic - Urinary Catheter Management Straight Cath placed during this visit: yes, but has since been removed by the nurse Reason for continuing: Not indwelling catheter Insertion date: 06/11/18 Insertion time: 09:15 Removal date: 06/11/18 Removal time: 09:16 Condom Cath placed during this visit: no Results - Labs CBC & Chem 7: 06/21/18 12:13 06/20/18 03:24 Laboratory Results - last 24 hr 06/20/18 06/20/18 06/21/18 11:42 17:57 05:27 POC Glucose 127 H 131 H 144 H Microbiology 06/15/18 21:40 Blood - Peripheral Aerobic Blood Culture - Final No growth in 5 days 06/15/18 21:40 Blood - Peripheral Anaerobic Blood Culture - Final No growth in 5 days 06/15/18 21:45 Blood - Peripheral Aerobic Blood Culture - Final No growth in 5 days 06/15/18 21:45 Blood - Peripheral Anaerobic Blood Culture - Final No growth in 5 days - Imaging Impressions Abdomen Ultrasound 06/20/18 18:09 CONCLUSION: 1. Echogenic liver consistent with hepatic steatosis versus medical liver disease. 2. Gallbladder sludge with nonspecific mild gallbladder wall thickening. 3. Pancreas not well demonstrated. - Procedures PEG Assessment and Plan (1) Encounter for PEG (percutaneous endoscopic gastrostomy) Status: Acute Code(s): Z43.1 - Encounter for attention to gastrostomy (2) Acute embolic stroke Status: Acute Code(s): I63.9 - Cerebral infarction, unspecified - Plan Patient is a pleasant 68-year-old male with past medical history of COPD, arthritis and hyperlipidemia. Surgical history significant for back surgery. Patient presented to [facility] emergency room with new onset of altered mental status. Upon consultation, patient's daughter available to provide history to comprise history of present illness. She reports that one week ago patient was found by his son at home and noted to be slumped over. She states patient's son had called him earlier that morning and noted that his speech was slurred and garbled. Upon arrival to emergency room, patient was noted to have a large clot-with subacute infarct involving a large portion of the left anterior region extending into the head of the caudate and basal ganglia involving both limbs and internal capsule without hemorrhage. CTA on stroke alert revealed occluded left internal carotid bifurcation skull base. Patient was admitted to ICU to undergo continuing observation with physical therapy and speech therapy. Patient was transferred out of ICU and taken to the neurology unit where he sustained a fall and became lethargic. MRI at that time revealed increased swelling with no active bleeding. CT brain on 06/17/2018 showed no significant change or increase in swelling. Patient currently receiving Keppra and Decadron. Modified barium swallow study with speech include recommendations for n.p.o. due to severe pharyngeal dysphasia with recurring aspiration of all consistencies attempted during the study. Our service has been consulted to evaluate patient for PEG tube placement for which patient's daughter states family members verbalized understanding and are consenting to. PEG tube placement Patient post embolic stroke 06/11/2018 06/18/2018 modified barium swallow- N.P.O UNABLE TO RECOMMEND ANY SAFE PO CONSISTENCY DUE TO FREQUENCY OF AIRWAY PENETRATION AND ASPIRATION EVENTS OBSERVED DURING THIS STUDY. MAY NEED TO CONSIDER POSSIBLE PLACEMENT OF [employer] S[employer]ER NON-ORAL MEANS OF NUTRITION SUCH PEG TUBE. CONTINUE DYSPHAGIA THERAPY WITH SPEECH PATHOLOGY WBC 10.8 hemoglobin 14.8 hematocrit 43.1 platelet count 257 INR 1.0 06/20/2018 Assessment s/p PEG tube placement yesterday - developed abdominal pain, CT done showed no free air but several barium in the colon Frequent Hiccups Leukocytosis -Patient is s/p CVA with right-sided weakness who failed swallowing eval and needs long-term and enteral feeding. Status post PEG tube placement. Patient' s abdominal pain is controlled now with pain medicine. Patient's hiccups have subsided after initial dose of chlorpromazine. We will do ultrasound of the abdomen to rule out hematoma at the insertion site. Today's lab WBC 12.9 hemoglobin 14.2 hematocrit 41.8 platelet 262 06/21/2018 PEG tube placement-patient endorsing mild abdominal discomfort on palpation during exam Leukocytosis-06/20/2018 WBC 12.9--CBC and chest x-ray pending Not presently having hiccups-Thorazine 25 mg every 6 hours Nursing reports tube feedings held as patient was reported to have moist cough overnight. No excessive gastric residuals reported 06/20/2018 Abdominal Ultrasound revealed the following: Echogenic liver consistent with hepatic steatosis versus medical liver disease. Gallbladder sludge with nonspecific mild gallbladder wall thickening. Pancreas not well demonstrated. -No hematoma reported Plan -N.p.o. -Trickle feedings to get to goal rate as per dietary recommendations -Bowel regimen -Continue MiraLAX and Bentyl -Thorazine as ordered -Supportive care -GI will sign off at this time, please notify if any further assistance required This patient has been seen by myself and Dr. Hood this note is written on his behalf - Attending Attestation Dr. Hood
--- NOTE | 2018-06-21 12:14 | P.PNIM ---
Subjective Interval history: Follow-up dysphagia. Status post PEG improved epigastric pain and hiccups. Currently on 4 L denies shortness of breath. Discussed with nursing to wean oxygen and restart tube feeding Physical Exam Vital signs: Vital Signs 06/20/18 16:00 06/20/18 19:12 06/21/18 03:56 Temperature 98.2 F 98.6 F Pulse Rate 71 90 60 Respiratory Rate 18 16 21 Blood Pressure 152/87 H 119/78 Pulse Oximetry 91 L 91 L 06/21/18 03:57 06/21/18 08:00 06/21/18 09:09 Temperature 97.6 F Pulse Rate 77 Respiratory Rate 16 Blood Pressure 116/70 Pulse Oximetry 97 92 L 97 06/21/18 09:10 06/21/18 12:00 Temperature 97.7 F Pulse Rate 55 L Respiratory Rate 16 Blood Pressure 111/72 Pulse Oximetry 97 96 Intake & Output 06/20/18 06/21/18 06/21/18 18:59 06:59 18:59 Intake Total 1072 / 1072 105 / 105 Balance 1072 / 1072 105 / 105 Intake: IV 705 / 705 105 / 105 NS + KCl 20 mEq Inj 1,000 ML @ 600 / 600 70 mls/hr IV.CONT .[id number] DORIS Rx#:[id number] Keppra Inj 500 MG In NS Inj 100 105 / 105 105 / 105 ML @ 400 mls/hr IV.SIG Q12H DORIS Rx#:[id number] Tube Feeding 187 / 187 Tube Irrigant 180 / 180 Other: # Incontinent Voids 3 Date of Last Bowel Movement 06/19/18 Narrative: GENERAL: Middle-age male, in distress due to pain over PEG. CHEST: Equal chest rise. Room air. CARDIOVASCULAR: Normal rate, regular rhythm. Sinus by telemetry. ABDOMEN: Soft, tender over PEG, nondistended. No guarding. MUSCULOSKELETAL: Pulses 2+. No peripheral edema. NEUROLOGICAL: He is awake but remains aphasic moving all extremities except right upper extremity Urinary Catheter Management Straight: Cath placed during this visit: yes, but has since been removed by the nurse Reason for continuing: Not indwelling catheter Insertion date: 06/11/18 Insertion time: 09:15 Removal date: 06/11/18 Removal time: 09:16 Condom: Cath placed during this visit: no Results Labs CBC & Chem 7: 06/20/18 03:24 06/20/18 03:24 Labs: Microbiology 06/15/18 21:40 Blood - Peripheral Aerobic Blood Culture - Final No growth in 5 days 06/15/18 21:40 Blood - Peripheral Anaerobic Blood Culture - Final No growth in 5 days 06/15/18 21:45 Blood - Peripheral Aerobic Blood Culture - Final No growth in 5 days 06/15/18 21:45 Blood - Peripheral Anaerobic Blood Culture - Final No growth in 5 days Imaging Imaging: ITS Impressions Cerebral Angiography 06/11/18 00:00 CONCLUSION: 1. Acute occlusion on chronic critical stenosis of the left internal carotid at its origin. The patient is not a candidate for embolectomy. Head CTA 06/11/18 08:28 CONCLUSION: 1. Embolic occlusion on the left. CT suggests an older stroke then suggested by history. Report was called by Dr. Ring at 0905 AM. Neck CTA 06/11/18 08:28 CONCLUSION: 1. 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 Ring at [address] CAD 06/11/18 08:29 CONCLUSION: Physiological brain perfusion parameters with RAPID analysis as above. The decision for consideration of therapy is multi factorial and multi disciplinary relying on subjective and objective clinical data. This data is not construed or intended to be the sole determinant of treatment eligibility. Head MRI 06/15/18 16:02 CONCLUSION: 1. Left MCA infarct noted. There is mild mass effect on the frontal horn of the left lateral ventricle. 1 mm left to right shift. Chest X-Ray 06/16/18 00:00 CONCLUSION: The lungs are clear. Videofluoroscopic Swallow 06/18/18 00:00 CONCLUSION: Aspiration as above. Please see consultation with speech pathology Abdomen CT 06/19/18 00:00 CONCLUSION: 1. The PEG tube appears to be in the distal gastric body. There is no free intraperitoneal air or acute abnormality. 2. Otherwise, no acute finding is identified. There is retained barium contrast throughout the colon causing beam hardening artifact and obscuration of the surrounding structures. Head CT 06/19/18 00:00 CONCLUSION: 1. Continued evolution of a large left frontotemporal stroke without evidence of hemorrhage or significant extension since the study on the . . . Abdomen Ultrasound 06/20/18 18:09 CONCLUSION: 1. Echogenic liver consistent with hepatic steatosis versus medical liver disease. 2. Gallbladder sludge with nonspecific mild gallbladder wall thickening. 3. Pancreas not well demonstrated. Procedures Procedures: PEG Assessment and Plan (1) Encounter for PEG (percutaneous endoscopic gastrostomy): Code(s): Z43.1 - Encounter for attention to gastrostomy Status: Acute (2) Acute embolic stroke: Code(s): I63.9 - Cerebral infarction, unspecified Status: Acute Plan This is a 68-year-old male with acute left M1 MCA CVA and left ICA occlusion. Acute left embolic M1 MCA CVA with left ICA occlusion, Acute encephalopathy and Dense receptive and expressive aphasia. Improving encephalopathy and aphasia. Recent depressed mental status could have been a combination of increased mass- effect seen on head CT, medication effect (Keppra) and seizure Hypertensive Emergency. Improved Frequent neurochecks. Failed MBS s/p PEG, ct TF as tolerated Repeat MRI without significant change Repeat head CT no significant change EEG with no epileptiform activity lipids. Statin based on lipid profile, atorvastatin started (patient on Crestor) A1c 5.7 2D echo, an estimated ejection fraction in the range of 55-60%. 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 Risk factor modification Epig pain and hiccups s/p PEG. Abdominal CT shows PEG in the distal gastric body. No free intraperitoneal air or acute abnormality. Ultrasound shows echogenic liver consistent with hepatic steatosis versus medical liver disease.2. Gallbladder sludge with nonspecific mild gallbladder wall thickening.3. Pancreas not well demonstrated.improved continue Bentyl and Thorazine. Continue pain management fever. Workup negative including chest x-ray and urinalysis. Improved follow- up blood cultures. Likely from atelectasis versus [employer] insult. We will continue to monitor Hypoxia. No respiratory symptoms. Obtain chest x-ray and wean and discontinue oxygen keep saturation 92%. Likely from atelectasis. SCD and early OOB for DVT proph code Status: Full Stable for discharge to [facility] Note: Quality VTE Deep Vein Thrombosis/Pulmonary Embolism Present on Admission: No
[2018-06-21 12:43] LABS: Baso % (Auto) 0.1 % (0.0-2.0); Hematocrit 43.7 % (39.0-51.0); Hemoglobin 14.8 gm/dL (13.0-17.0); Lymph # (Auto) 1.3 th/mm3 (1.0-4.8); Lymph % (Auto) 8.8 % (9.0-44.0); Mean Corpuscular HGB Conc 33.9 % (32.0-36.0); Mean Corpuscular Volume 91.3 fL (80.0-100.0); Mean Platelet Volume 8.6 fL (7.0-11.0); Mono # (Auto) 0.9 th/mm3 (0.0-0.9); Mono % (Auto) 5.8 % (0.0-8.0); Neut # (Auto) 12.5 th/mm3 (1.8-7.7); Neut % (Auto) 85.3 % (16.0-70.0); Platelet Count 287 th/mm3 (150-450); Red Blood Count 4.79 mil/mm3 (4.50-5.90); Red Cell Distribution Width 13.2 % (11.6-17.2); White Blood Count 14.7 th/mm3 (4.0-11.0)
--- NOTE | 2018-06-21 12:56 | XR ---
EXAM DATE: 06/21/2018 12:48 PM EST AGE/SEX: 68 years / Male INDICATIONS: Shortness of breath and chest pain. CLINICAL DATA: This is the patient's initial encounter. Patient reports that signs and symptoms have been present for 1 day and indicates a pain score of 6/10. MEDICAL/SURGICAL HISTORY: Chronic obstructive pulmonary disease. Hyperlipidemia. None. COMPARISON: [facility] – [place], CHEST 1V SINGLE AP, 06/16/2018. . FINDINGS: A single AP view of the chest demonstrates the lungs to be symmetrically aerated without evidence of mass, infiltrate or effusion. The cardiomediastinal contours are unremarkable. Osseous structures a re intact. CONCLUSION: The lungs are clear. Electronically signed by: Jim Nina MD Board Certified Radiologist 06/21/2018 12:54 PM EST
== END 2018-06-21 14:20 | DRG 64 ==
LOC: NEPD 08:25 → N03 09:45 → NEDA 09:45 → N03 10:52 → N05 06-13 21:32 → N03 06-15 16:14
PROVIDERS: ADMIT Internal Medicine; ATTEND Internal Medicine
PROC: PANENDO (2018-06-19 11:12)
DX: F17.210 Nicotine dependence, cigarettes, uncomplicated; R06.6 Hiccough; R13.13 Dysphagia, pharyngeal phase; R47.01 Aphasia; Z88.0 Allergy status to penicillin; Y93.9 Activity, unspecified; I10 Essential (primary) hypertension; M10.9 Gout, unspecified; W19.XXXA Unspecified fall, initial encounter; N52.9 Male erectile dysfunction, unspecified; K21.9 Gastro-esophageal reflux disease without esophagitis; G93.6 Cerebral edema; J98.11 Atelectasis; E78.5 Hyperlipidemia, unspecified; Y92.230 Patient room in hospital as the place of occurrence of the external cause; I63.232 Cerebral infarction due to unspecified occlusion or stenosis of left carotid arteries; I63.412 Cerebral infarction due to embolism of left middle cerebral artery; R56.9 Unspecified convulsions; K82.8 Other specified diseases of gallbladder; G93.40 Encephalopathy, unspecified; I69.351 Hemiplegia and hemiparesis following cerebral infarction affecting right dominant side; M19.90 Unspecified osteoarthritis, unspecified site; J44.9 Chronic obstructive pulmonary disease, unspecified; M06.9 Rheumatoid arthritis, unspecified; T38.0X5A Adverse effect of glucocorticoids and synthetic analogues, initial encounter; R29.810 Facial weakness; D72.829 Elevated white blood cell count, unspecified; Z79.899 Other long term (current) drug therapy; I16.1 Hypertensive emergency
CPT/HCPCS: 0042T; 36223; 36224; 36600; 70450; 70496; 70498; 70551; 70553; 71010; 71045; 74150; 74230; 76497; 76499; 76700; 76937; 80048; 80053; 80061; 80307; 81001; 82435; 82550; 82552; 82565; 82805; 82947; 82948; 82962; 83036; 83735; 84100; 84132; 84295; 84484; 84520; 85025; 85384; 85610; 85730; 86850; 86900; 86901; 87040; 87086; 87641; 90760; 92507; 92526; 92610; 92611; 93005; 93306; 94150; 94640; 94665; 95819; 96360; 97110; 97116; 97163; 97166; 97168; 97530; 97535; 99145; 99152; 99153; 99291; A4646; A9585; C1760; C1769; C1887; C1893; C1894; C9238; G0195; G0196; J0330; J1100; J1885; J1953; J2250; J2270; J2405; J2704; J3010; J3370; J3480; J7030; Q9949; Q9967